=== PATIENT | male | born 1950 | race Caucasian/White ===

== ENCOUNTER 2023-05-18 18:12 | Emergency (ER) | payer MEDICARE, BC, SELFPAY ==
--- NOTE | 2023-05-18 18:15 | ECG_ITS ---
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 Measurements Intervals [place] Rate: 80 P: 52 VT: 187 QRS: -29 QRSD: 104 T: 35 QT: 357 QTc: 412 Interpretive Statements SINUS RHYTHM POSSIBLE ANTERIOR MYOCARDIAL INFARCTION , PROBABLY OLD [30 ms Q WAVE IN V3/V4, OR R < 0.2 mV IN V4] No previous ECG available for comparison Electronically Signed On 05-18-2023 21:36:57 PER DIEM RN by Odalis Garcia M.D. [id number] f
[2023-05-18 18:17] VITALS: BP 152/92; PULSE 78; RESP 16; TEMP 36.6; O2SAT 98; BMI 38.0
--- NOTE | 2023-05-18 18:29 | XRR_ITS ---
PROCEDURE INFORMATION: Exam: XR Chest Exam date and time: 05/18/2023 6:56 PM Age: 73 years old Clinical indication: Shortness of breath; Additional info: SOB TECHNIQUE: Imaging protocol: Radiologic exam of the chest. Views: 1 view. COMPARISON: No relevant prior studies available. FINDINGS: Lungs: Unremarkable. No consolidation. Pleural spaces: Unremarkable. No pleural effusion. No pneumothorax. Heart/Mediastinum: Unremarkable. No cardiomegaly. Bones/joints: Unremarkable. XR/XR chest 1V portable [id number] IMPRESSION: No acute findings.
[2023-05-18 18:43] LABS: Basophils # 0.1 10^3/uL (0.0-0.1); Basophils % 1.1 %; Eosinophils # 0.2 10^3/uL (0.0-0.8); Eosinophils % 2.8 %; Hematocrit 42.2 % (37-53); Lymphocytes # 1.5 10^3/uL (0.8-4.8); Lymphocytes % 24.3 %; Mean Corpuscular HGB Conc 33.4 g/dL (30-55); Mean Corpuscular Hemoglobin 29.3 pg (27-33); Mean Corpuscular Volume 87.7 fl (82-101); Mean Platelet Volume 9.6 fL (7.4-10.4); Monocytes # 0.4 10^3/uL (0.2-0.9); Monocytes % 6.3 %; Neutrophils # 3.98 10^3/uL (1.8-7.7); Neutrophils % 64.4 %; Nucleated Red Blood Cells % 0 %; Platelet Count 205 10^3/cmm (157-399); Red Blood Count 4.81 10^6/uL (3.85-5.65); Red Cell Distribution Width 13.1 % (12.1-15.1); White Blood Count 6.18 10^3/uL (3.29-11.43)
--- NOTE | 2023-05-18 19:01 | ED_ITS ---
HPI - Chest Pain 2 General: Chief Complaint: Chest Pain Stated Complaint: cp Time Seen by Provider: 05/18/23 18:28 History of Present Illness: 73-year-old male patient here with chest discomfort and hypertension. He states that he was placed on Celebrex this week, and has had a few doses. He watched his blood pressure continually rise over the weekend after taking his Celebrex. His last dose was last night. His blood pressure remained high today, and he began to get chest and left arm discomfort. He is not overly short of breath. He has some left jaw pain. Associated symptoms: Deny abdominal pain, dyspnea, fever(s), nausea, palpitations or vomiting Review of Systems 2 Const: Denies: fever(s), chills or body aches Eyes: Denies: change in vision Card: Reports: chest pain; Denies: palpitations Resp: Denies: dyspnea, productive cough, non-productive cough or wheezing GI: Denies: abdominal pain, nausea, vomiting, diarrhea or hematochezia Skin/Breast: Denies: rash Neuro: Denies: headache(s), weakness in extremities, dizziness or confusion PFSH ED 2 PFSH: Surgical History History of tonsillectomy History of rhinoplasty deviated septum History of lumbar surgery x 2; L4/5 & L5/S1 History of cholecystectomy Family History Mother Lung cancer smoker Father CAD (coronary artery disease) Social History Smoking and tobacco/nicotine status: never used tobacco/nicotine Alcohol intake: never Substance/Drug Use: never Lives independently: Yes Household members: spouse Marital status: Marital status details: in 2003 Highest education level completed: Other Doctoral Degree 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Islam: Hoahaoism Agree to transfusion: No Physical Exam 2 Const: COMMON NORMALS: no acute distress GENERAL APPEARANCE: cooperative; not ill appearing and not frail appearing HENMT: COMMON NORMALS: normocephalic, atraumatic and Normal external nose present HEAD & SCALP: normocephalic and atraumatic FACE & SINUS: normal facial exam and face symmetric NOSE: Normal external nose present Eye: COMMON NORMALS: Equal, round and reactive pupils present and EOMs intact bilaterally PUPIL: Yes Equal, round and reactive pupils present Neck/C-Spine: GENERAL: Yes trachea midline Chest: CHEST: Yes Symmetrical chest wall rise Resp: COMMON NORMALS: normal respiratory effort, No retractions, No use of accessory muscles and clear to auscultation bilaterally AUSCULTATION: clear to auscultation bilaterally Cardio: COMMON NORMALS: regular rate and regular rhythm RATE: regular rate RHYTHM: regular rhythm GI: COMMON NORMALS: Normal to inspection, nondistended, normoactive bowel sounds present Extremity: COMMON NORMALS: no pedal edema Neuro: BENY COMA SCALE: document GCS findings [place] coma scale eye opening: Spontaneous [place] coma scale verbal response: Orientated Beny coma scale motor response: Obey commands [place] coma scale total score: 15 S ENSORY EXAM: Yes extremities (intact) Psych: COMMON NORMALS: speech normal SPEECH: Yes normal speech Skin: COMMON NORMALS: no rashes or lesions noted GENERAL SKIN EXAM: no rashes or lesions noted Course 2 Vital Signs: Vital signs: Vital Signs Temperature 97.8 F 05/18/23 21:29 Pulse Rate 76 05/18/23 21:29 Respiratory Rate 16 05/18/23 21:29 Blood Pressure 152/91 05/18/23 21:29 Pulse Oximetry 91 05/18/23 21:29 Oxygen Delivery Me thod Room Air 05/18/23 18:17 MDM - Chest Pain Medical Decision Making Hypertensive 73-year-old male. Blood pressure 198 systolic here. CBC is normal. Chest x-ray is not remarkable. Other laboratories pending. EKG shows no acute ST wave changes Blood pressures improved after medications. 150/90. Chest pain resolved. Second EKG reveals no acute ST wave changes. Troponin is stable. He will be discharged. Amlodipine for hypertension. He will check his blood pressure twice daily. Close outpatient follow-up. Return for concerns. Lab Data 05/18/23 18:38 05/18/23 18:38 Radiology Impressions Chest X-Ray 05/18/23 18:29 IMPRESSION: No acute findings. Laboratory Results WBC 6.18 10^3/uL (3.29-11.43) 05/18/23 18:38 RBC 4.81 10^6/uL (3.85-5.65) 05/18/23 18:38 Hgb 14.10 g/dL (11.27-16.99) 05/18/23 18:38 Hct 42.2 % (37-53) 05/18/23 18:38 MCV 87.7 fl (82-101) 05/18/23 18:38 MCH 29.3 pg (27-33) 05/18/23 18:38 MCHC 33.4 g/dL (30-55) 05/18/23 18:38 RDW 13.1 % (12.1-15.1) 05/18/23 18:38 Plt Count 205 10^3/cmm (157-399) 05/18/23 18:38 MPV 9.6 fL (7.4-10.4) 05/18/23 18:38 Neut % (Auto) 64.4 % 05/18/23 18:38 Lymph % (Auto) 24.3 % 05/18/23 18:38 Boundary % (Auto) 6.3 % 05/18/23 18:38 Eos % (Auto) 2.8 % 05/18/23 18:38 Baso % (Auto) 1.1 % 05/18/23 18:38 Neut # (Auto) 3.98 10^3/uL (1.8-7.7) 05/18/23 18:38 Lymph # (Auto) 1.5 10^3/uL (0.8-4.8) 05/18/23 18:38 Boundary # (Auto) 0.4 10^3/uL (0.2-0.9) 05/18/23 18:38 Eos # (Auto) 0.2 10^3/uL (0.0-0.8) 05/18/23 18:38 Baso # (Auto) 0.1 10^3/uL (0.0-0.1) 05/18/23 18:38 Nucleated RBC % (auto) 0 % 05/18/23 18:38 Nucleated RBCs # 0.0 /100WBC 05/18/23 18:38 Sodium 139 mmol/L (136-145) 05/18/23 18:38 Potassium 4.1 mmol/L (3.5-5.1) 05/18/23 18:38 Chloride 104 mmol/L (98-107) 05/18/23 18:38 Carbon Dioxide 24 mmol/L (22-29) 05/18/23 18:38 Anion Gap 15.1 (5-19) 05/18/23 18:38 BUN 17 mg/dL (8-23) 05/18/23 18:38 Creatinine 0.8 mg/dL (0.7-1.2) 05/18/23 18:38 GFR Calculation Not Reportable 05/18/23 18:38 Glucose 96 mg/dL (65-115) 05/18/23 18:38 Calculated Osmolality 289 mOsm/kg (285-295) 05/18/23 18:38 Calcium 9.3 mg/dL (8.5-10.5) 05/18/23 18:38 Total Bilirubin 0.4 mg/dL (0.15-1.2) 05/18/23 18:38 AST 22 U/L (0-40) 05/18/23 18:38 ALT 35 U/L (0-41) 05/18/23 18:38 Alkaline Phosphatase 67 U/L (40-130) 05/18/23 18:38 Creatine Kinase 163 U/L (39-308) 05/18/23 18:38 Troponin T Baseline 17 ng/L (0-15) H 05/18/23 18:38 Troponin T 120 Minute 16.09 ng/L (0-15) H 05/18/23 20:25 Delta Troponin T -0.91 ABS# (0-10) L 05/18/23 20:25 NT-Pro-B Natriuret Pep 99 pg/mL (0-125) 05/18/23 18:38 Total Protein 6.9 g/dL (6.6-8.7) 05/18/23 18:38 Albumin 4.6 g/dL (3.5-5.2) 05/18/23 18:38 Globulin 2.3 g/dL (1.3-4.6) 05/18/23 18:38 All radiology interpretation(s) finalized by discharge Discharge Plan Discharge Patient Disposition: Home Clinical Impression: Chest pain, Hypertension Condition: Stable Prescriptions: New amlodipine 10 mg tablet 10 mg PO DAILY Qty: 30 0RF No Action tamsulosin 0.4 mg capsule 0.4 mg PO DAILY celecoxib [Celebrex] 100 mg capsule 100 mg PO BID Qty: 60 0RF Discharge Orders: Discharge ED (Routine); Ordered 05/18/23 Ordered By: Abhinav Soliman Referrals: Vanna Woodard MD [Primary Care Provider] - 1-3 days Patient Instructions: Chest Pain (ED), Hypertension (ED), Opioid Safety, Pain Management Activity Restrictions/Additional Instructions: Check your blood pressure twice daily and record numbers for your doctor. If your blood pressure remains greater than 150/90, take the medication prescribed. If not, you do not need to take the medication. Follow your doctor's advice about your blood pressure on follow-up. Return for worsening pain despite treatment, shortness of breath, fever, any other concerning symptoms. Coding Level of Care Code ED Commercial Food Instructor for Carole Trujillo
[2023-05-18 19:07] LABS: Troponin(5th) Baseline 17 ng/L (0-15)
[2023-05-18] MEDS: nitroglycerin 0.4 mg sublingual Tablet SUBLINGUAL (19:11)
[2023-05-18] MEDS: amlodipine 10 mg Tablet PO (19:11)
[2023-05-18 19:12] LABS: Alanine Aminotransferase 35 U/L (0-41); Albumin Level 4.6 g/dL (3.5-5.2); Alkaline Phosphatase 67 U/L (40-130); Anion Gap 15.1 (5-19); Aspartate Amino Transferase 22 U/L (0-40); Blood Urea Nitrogen 17 mg/dL (8-23); Calcium 9.3 mg/dL (8.5-10.5); Carbon Dioxide 24 mmol/L (22-29); Chloride 104 mmol/L (98-107); Creatine Phosphokinase 163 U/L (39-308); Globulin 2.3 g/dL (1.3-4.6); Glucose 96 mg/dL (65-115); NT Pro B Type Natriuretic Pept 99 pg/mL (0-125); Osmolality Calculated 289 mOsm/kg (285-295); Potassium 4.1 mmol/L (3.5-5.1); Sodium 139 mmol/L (136-145); Total Bilirubin 0.4 mg/dL (0.15-1.2); Total Protein 6.9 g/dL (6.6-8.7)
--- NOTE | 2023-05-18 20:29 | ECG_ITS ---
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 Measurements Intervals [place] Rate: 68 P: 41 MS: 190 QRS: -23 QRSD: 94 T: 42 QT: 367 QTc: 391 Interpretive Statements SINUS RHYTHM POSSIBLE ANTERIOR MYOCARDIAL INFARCTION , PROBABLY OLD [30 ms Q WAVE IN V3/V4, OR R < 0.2 mV IN V4] Compared to ECG 05/18/2023 18:15:13 No significant changes Electronically Signed On 05-18-2023 21:41:21 REJECT OPENER AND FILLER by Odalis Garcia M.D. [id number]
[2023-05-18 20:50] LABS: Troponin 5 2HR 16.09 ng/L (0-15); Troponin 5 2HR Delta -0.91 ABS# (0-10)
[2023-05-18 21:28] VITALS: BP 152/91; PULSE 76; RESP 16; O2SAT 91
[2023-05-18 21:29] VITALS: BP 152/91; PULSE 76; RESP 16; TEMP 36.6; O2SAT 91
== END 2023-05-18 21:31 | disposition home or self-care (01) ==
PROVIDERS: Emergency Provider Emergency Medicine; PCP Family Medicine
DX: R07.9 Chest pain, unspecified (principal); I10 Essential (primary) hypertension
CPT/HCPCS: 71045; 80053; 82550; 83880; 84484; 85025; 93005; 99285

== ENCOUNTER → 2023-05-22 14:33 | Outpatient (BNVA) | payer MEDICARE, BC, SELFPAY | PROVIDERS: PCP Family Medicine; Referring Provider Family Medicine; Visit Provider Specialist | DX: R29.90 Unspecified symptoms and signs involving the nervous system (principal); I67.89 Other cerebrovascular disease; R42 Dizziness and giddiness; H91.92 Unspecified hearing loss, left ear; R26.9 Unspecified abnormalities of gait and mobility; G56.03 Carpal tunnel syndrome, bilateral upper limbs | CPT/HCPCS: 99205 ==

== ENCOUNTER 2023-05-24 20:54 | Emergency (ER) | payer MEDICARE, BC, SELFPAY ==
[2023-05-24 20:57] VITALS: BP 187/118; PULSE 91; RESP 18; TEMP 36.6; O2SAT 97; BMI 37.3
--- NOTE | 2023-05-24 21:43 | USR_ITS ---
PROCEDURE INFORMATION: Exam: US Duplex Left Lower Extremity Veins, Limited Exam date and time: 05/24/2023 11:54 PM Age: 73 years old Clinical indication: Pain; Leg, lower; Left; Additional info: Pain swelling left leg TECHNIQUE: Imaging protocol: Real-time duplex ultrasound of the left extremity with 2-D mcghee scale, color Doppler flow and spectral waveform analysis including responses to compression and other maneuvers (when performed) with image documentation. Limited exam focused on the left lower extremity veins. COMPARISON: No relevant prior studies available. FINDINGS: Evaluated veins include the left common femoral, proximal profunda femoral, proximal/mid/distal superficial femoral, popliteal, posterior tibial, peroneal, and proximal greater saphenous veins. No visible clot in the included veins. The included veins appear normally compressible. Duplex Doppler evaluation demonstrates flow in the evaluated veins. US/CV venous duplex [facility] [id number] IMPRESSION: No evidence of acute left lower extremity DVT.
--- NOTE | 2023-05-24 21:43 | CTR_ITS ---
PROCEDURE INFORMATION: Exam: CT Head Without Contrast Exam date and time: 05/24/2023 10:34 PM Age: 73 years old Clinical indication: Pain; Headache; Patient HX: DREW with dizziness, nausea, and hypertension. ; Additional info: Left head side tingling TECHNIQUE: Imaging protocol: Computed tomography of the head without contrast. Radiation optimization: All CT scans at this facility use at least one of these dose optimization techniques: automated exposure control; mA and/or kV adjustment per patient size (includes targeted exams where dose is matched to clinical indication); or iterative reconstruction. COMPARISON: No relevant prior studies available. RADIATION DOSE METRICS: Total DLP (mGy-cm): 1268.89 FINDINGS: Brain: No hemorrhage. No edema. Moderate diffuse cerebral atrophy and mild sequela of chronic small vessel ischemic disease. No mass effect. Cerebral ventricles: No ventriculomegaly. Paranasal sinuses: Visualized sinuses are unremarkable. No fluid levels. Mastoid air cells: Visualized mastoid air cells are well aerated. Bones/joints: Unremarkable. No acute fracture. Soft tissues: Unremarkable. CT/CT head wo con* [id number] IMPRESSION: No acute intracranial abnormality.
--- NOTE | 2023-05-24 21:43 | ECG_ITS ---
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 Measurements Intervals [place] Rate: 94 P: 39 [place]: 177 QRS: -39 QRSD: 98 T: 52 QT: 335 QTc: 419 Interpretive Statements SINUS RHYTHM LEFT AXIS DEVIATION [QRS AXIS < -30] POSSIBLE ANTERIOR MYOCARDIAL INFARCTION , PROBABLY OLD [30 ms Q WAVE IN V3/V4, OR R < 0.2 mV IN V4] Compared to ECG 05/18/2023 20:25:36 Left-axis deviation now present Myocardial infarct finding still present Electronically Signed On 05-24-2023 23:09:29 RHEUMATOLOGY SPECIALIST by Vik Mcgowan M.D. [id number]
--- NOTE | 2023-05-24 21:45 | ED_ITS ---
Documented by User: Marcus Sood MD 05/25/23 20:19 HPI - General Adult 2 General: Chief complaint: General Medical Stated complaint: High BP\Leg Tingling\Chest Pain Time Seen by Provider: 05/24/23 21:31 History of Present Illness: 73-year-old male presents to the emergen cy department with complaints of chest pressure and elevated blood pressure. He states he was seen here last Friday for elevated blood pressure and advised to take Norvasc for his blood pressure and follow-up with his primary care provider. Patient states that since that time he is taking his Norvasc intermittently when his systolic blood pressure was elevated. He states today he comes in with a 6 out of 10 left-sided headache and tingling to the entire left side of his body. He also states that he has dizziness as well as swelling and pain to his left lower leg. He states he also recently had left-sided hearing loss and was seen by Dr. Polanco- neurology yesterday. Associated symptoms: Reports chest pain Review of Systems 2 General: Reports: 10 or more systems reviewed and unremarkable except in HPI and below ENMT: Reports: other (Hearing loss left ear) Card: Reports: chest pain and edema Musc: Reports: extremity pain and extremity swelling Neuro: Reports: other (Tingling to entire left side of his body) PFSH ED 2 PFSH: Surgical History History of tonsillectomy History of rhinoplasty deviated septum History of lumbar surgery x 2; L4/5 & L5/S1 History of cholecystectomy Family History Mother Lung cancer smoker Father CAD (coronary artery disease) Social History Smoking and tobacco/nicotine status: never used tobacco/nicotine Alcohol intake: never Substance/Drug Use: never Lives independently: Yes Household members: spouse Marital status: Marital status details: in 2003 Highest education level completed: Other Doctoral Degree 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 Vital signs reviewed as documented. HENMT: Normocephalic, atraumatic. External ears normal appearance without drainage. Nose without drainage, normal appearance. Mucus membranes moist. Neck is supple, No jugular venous distension, trachea is midline, no appreciable carotid bruits. No lymphadenopathy. No meningeal signs. Flexion, extension and lateral rotation is without pain. Eyes: Pupils are equal, round, reactive to light and accommodation. No scleral icterus. Extra-ocular movement are intact. Thorax is symmetrical and with equal rise and fall with respirations. Resp: Lungs are clear to auscultation. No wheezes, rales, crackles or ronchi at present. Cardio: Regular rate and rhythm. Positive S1, S2. No appreciable murmurs, rubs or gallops. GI: Abdominal exam reveals normal bowel sounds to all quadrants. No organomegaly. No obvious palpable masses noted. No hepatomegally appreciated. Soft, non-tender to palpation. Extremity: Left lower extremity/calf with tight brawny edema that is nonpitting. The calf is tender to light palpation. And both femoral and pedal pulses are 2+ and equal bilaterally. Moves all extremities well, sensation in all extremities. Neuro: Alert and oriented x4, person, place, time and situation. Cranial nerves II through XII are grossly intact, there is no focal neurological deficits that I can appreciate at present. Motor strength in the upper and lower extremities are equal and bilateral 5/5. Psych: Cooperative, calm, normal thought process, appropriate judgment. Skin: No lesions, rashes. No gross abnormalities noted. Back: Symmetrical, no obvious deformity, No CVA tenderness Course 2 Vital Signs: Vital signs: Vital Signs Temperature 97.8 F 05/24/23 20:57 Pulse Rate 87 05/25/23 00:50 Respiratory Rate 16 05/24/23 22:00 Blood Pressure 126/83 05/25/23 00:50 Pulse Oximetry 96 05/25/23 00:50 Oxygen Delivery Me thod Room Air 05/24/23 20:57 MDM - General Adult Differential Diagnosis 73-year-old male with elevated blood pressure, leg pain and swelling and chest pressure. I will obtain a CBC, CMP serial cardiac enzymes and EKGs, CT scan of his head as well as ultrasound the left lower extremity. I will provide him IV hydralazine to lower his blood pressure. Medical Records I reviewed the patient's medical records. Lab Data I reviewed the patient's lab results. 05/24/23 21:49 05/24/23 21:[address] 05/24/23 21:43 IMPRESSION: No acute intracranial abnormality. Venous Duplex 05/24/23 21:43 IMPRESSION: No evidence of acute left lower extremity DVT. Laboratory Results WBC 9.03 10^3/uL (3.29-11.43) 05/24/23 21:49 RBC 5.30 10^6/uL (3.85-5.65) 05/24/23 21:49 Hgb 15.50 g/dL (11.27-16.99) 05/24/23 21:49 Hct 46.2 % (37-53) 05/24/23 21:49 MCV 87.2 fl (82-101) 05/24/23 21:49 MCH 29.2 pg (27-33) 05/24/23 21:49 MCHC 33.5 g/dL (30-55) 05/24/23 21:49 RDW 13.2 % (12.1-15.1) 05/24/23 21:49 Plt Count 247 10^3/cmm (157-399) 05/24/23 21:49 MPV 9.3 fL (7.4-10.4) 05/24/23 21:49 Neut % (Auto) 68.6 % 05/24/23 21:49 Lymph % (Auto) 21.0 % 05/24/23 21:49 Irion % (Auto) 6.3 % 05/24/23 21:49 Eos % (Auto) 2.4 % 05/24/23 21:49 Baso % (Auto) 0.8 % 05/24/23 21:49 Neut # (Auto) 6.19 10^3/uL (1.8-7.7) 05/24/23 21:49 Lymph # (Auto) 1.9 10^3/uL (0.8-4.8) 05/24/23 21:49 Irion # (Auto) 0.6 10^3/uL (0.2-0.9) 05/24/23 21:49 Eos # (Auto) 0.2 10^3/uL (0.0-0.8) 05/24/23 21:49 Baso # (Auto) 0.1 10^3/uL (0.0-0.1) 05/24/23 21:49 Nucleated RBC % (auto) 0 % 05/24/23 21:49 Nucleated RBCs # 0.0 /100WBC 05/24/23 21:49 PT 12.70 SECONDS (12.1-14.9) 05/24/23 21:49 INR 0.92 (0.8-1.2) 05/24/23 21:49 APTT 29.3 SECONDS (23.9-36.7) 05/24/23 21:49 D-Dimer 0.82 ug/mLFEU (0-0.59) H 05/24/23 21:49 Sodium 139 mmol/L (136-145) 05/24/23 21:49 Potassium 4.0 mmol/L (3.5-5.1) 05/24/23 21:49 Chloride 102 mmol/L (98-107) 05/24/23 21:49 Carbon Dioxide 23 mmol/L (22-29) 05/24/23 21:49 Anion Gap 18.0 (5-19) 05/24/23 21:49 BUN 22 mg/dL (8-23) 05/24/23 21:49 Creatinine 0.8 mg/dL (0.7-1.2) 05/24/23 21:49 GFR Calculation Not Reportable 05/24/23 21:49 Glucose 102 mg/dL (65-115) 05/24/23 21:49 Calculated Osmolality 292 mOsm/kg (285-295) 05/24/23 21:49 Calcium 10.0 mg/dL (8.5-10.5) 05/24/23 21:49 Total Bilirubin 0.3 mg/dL (0.15-1.2) 05/24/23 21:49 AST 25 U/L (0-40) 05/24/23 21:49 ALT 34 U/L (0-41) 05/24/23 21:49 Alkaline Phosphatase 78 U/L (40-130) 05/24/23 21:49 Troponin T Baseline 17 ng/L (0-15) H 05/24/23 21:49 Troponin T 120 Minute 16.37 ng/L (0-15) H 05/24/23 23:44 Delta Troponin T -0.63 ABS# (0-10) L 05/24/23 23:44 NT-Pro-B Natriuret Pep < 36 pg/mL (0-125) 05/24/23 21:49 Total Protein 8.0 g/dL (6.6-8.7) 05/24/23 21:49 Albumin 4.8 g/dL (3.5-5.2) 05/24/23 21:49 Globulin 3.2 g/dL (1.3-4.6) 05/24/23 21:49 Discharge Plan Discharge Patient Disposition: Home Clinical Impression: Hypertension, Chest pain Condition: Stable Prescriptions: No Action tamsulosin 0.4 mg capsule 0.4 mg PO DAILY amlodipine 10 mg tablet 10 mg PO DAILY Qty: 30 0RF Discharge Orders: Discharge ED (Routine); Ordered 05/25/23 Ordered By: Abhinav Soliman Referrals: Vanna Woodard MD [Primary Care Provider] - 1-3 days Patient Instructions: Chest Pain (ED), Hypertension (ED), Opioid Safety, Pain Management Activity Restrictions/Additional Instructions: Your testing tonight did not reveal a cause of chest pain, or leg swelling etc. Take your blood pressure medication as directed. See your doctor tomorrow as scheduled. Continue to check your blood pressure and log your results. Return for concerning symptoms. Coding Level of Care Code ED Electronic Repair Troubleshooter for Chg Fwd Documented by User: Abhinav Soliman DO 05/25/23 01:38 HPI - General Adult 2 General: Chief complaint: General Medical Stated complaint: High BP\Leg Tingling\Chest Pain Time Seen by Provider: 05/24/23 21:31 PFSH ED 2 PFSH: Surgical History History of tonsillectomy History of rhinoplasty deviated septum History of lumbar surgery x 2; L4/5 & L5/S1 History of cholecystectomy Family History Mother Lung cancer smoker Father CAD (coronary artery disease) Social History Smoking and tobacco/nicotine status: never used tobacco/nicotine Alcohol intake: never Substance/Drug Use: never Lives independently: Yes Household members: spouse Marital status: Marital status details: in 2003 Highest education level completed: Other Doctoral Degree 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 His blood pressure has been very well-controlled here. 107/81 currently. He is now asymptomatic. Second troponin is pending. Head CT is negative. Other laboratories benign. 2-hour troponin is stable. With improvement in his symptoms, stable troponin, no acute ST wave changes, negative head CT, negative venous duplex, and control his blood pressure, he will be allowed home. He has a follow-up appointment tomorrow with his primary care physician. Differential Diagnosis 73-year-old male with elevated blood pressure, leg pain and swelling and chest pressure. I will obtain a CBC, CMP serial cardiac enzymes and EKGs, CT scan of his head as well as ultrasound the left lower extremity. I will provide him IV hydralazine to lower his blood pressure. Lab Data 05/24/23 21:49 05/24/23 21:[address] 05/24/23 21:43 IMPRESSION: No acute intracranial abnormality. Venous Duplex 05/24/23 21:43 IMPRESSION: No evidence of acute left lower extremity DVT. Laboratory Results WBC 9.03 10^3/uL (3.29-11.43) 05/24/23 21:49 RBC 5.30 10^6/uL (3.85-5.65) 05/24/23 21:49 Hgb 15.50 g/dL (11.27-16.99) 05/24/23 21:49 Hct 46.2 % (37-53) 05/24/23 21:49 MCV 87.2 fl (82-101) 05/24/23 21:49 MCH 29.2 pg (27-33) 05/24/23 21:49 MCHC 33.5 g/dL (30-55) 05/24/23 21:49 RDW 13.2 % (12.1-15.1) 05/24/23 21:49 Plt Count 247 10^3/cmm (157-399) 05/24/23 21:49 MPV 9.3 fL (7.4-10.4) 05/24/23 21:49 Neut % (Auto) 68.6 % 05/24/23 21:49 Lymph % (Auto) 21.0 % 05/24/23 21:49 Irion % (Auto) 6.3 % 05/24/23 21:49 Eos % (Auto) 2.4 % 05/24/23 21:49 Baso % (Auto) 0.8 % 05/24/23 21:49 Neut # (Auto) 6.19 10^3/uL (1.8-7.7) 05/24/23 21:49 Lymph # (Auto) 1.9 10^3/uL (0.8-4.8) 05/24/23 21:49 Irion # (Auto) 0.6 10^3/uL (0.2-0.9) 05/24/23 21:49 Eos # (Auto) 0.2 10^3/uL (0.0-0.8) 05/24/23 21:49 Baso # (Auto) 0.1 10^3/uL (0.0-0.1) 05/24/23 21:49 Nucleated RBC % (auto) 0 % 05/24/23 21:49 Nucleated RBCs # 0.0 /100WBC 05/24/23 21:49 PT 12.70 SECONDS (12.1-14.9) 05/24/23 21:49 INR 0.92 (0.8-1.2) 05/24/23 21:49 APTT 29.3 SECONDS (23.9-36.7) 05/24/23 21:49 D-Dimer 0.82 ug/mLFEU (0-0.59) H 05/24/23 21:49 Sodium 139 mmol/L (136-145) 05/24/23 21:49 Potassium 4.0 mmol/L (3.5-5.1) 05/24/23 21:49 Chloride 102 mmol/L (98-107) 05/24/23 21:49 Carbon Dioxide 23 mmol/L (22-29) 05/24/23 21:49 Anion Gap 18.0 (5-19) 05/24/23 21:49 BUN 22 mg/dL (8-23) 05/24/23 21:49 Creatinine 0.8 mg/dL (0.7-1.2) 05/24/23 21:49 GFR Calculation Not Reportable 05/24/23 21:49 Glucose 102 mg/dL (65-115) 05/24/23 21:49 Calculated Osmolality 292 mOsm/kg (285-295) 05/24/23 21:49 Calcium 10.0 mg/dL (8.5-10.5) 05/24/23 21:49 Total Bilirubin 0.3 mg/dL (0.15-1.2) 05/24/23 21:49 AST 25 U/L (0-40) 05/24/23 21:49 ALT 34 U/L (0-41) 05/24/23 21:49 Alkaline Phosphatase 78 U/L (40-130) 05/24/23 21:49 Troponin T Baseline 17 ng/L (0-15) H 05/24/23 21:49 Troponin T 120 Minute 16.37 ng/L (0-15) H 05/24/23 23:44 Delta Troponin T -0.63 ABS# (0-10) L 05/24/23 23:44 NT-Pro-B Natriuret Pep < 36 pg/mL (0-125) 05/24/23 21:49 Total Protein 8.0 g/dL (6.6-8.7) 05/24/23 21:49 Albumin 4.8 g/dL (3.5-5.2) 05/24/23 21:49 Globulin 3.2 g/dL (1.3-4.6) 05/24/23 21:49 All radiology interpretation(s) finalized by discharge Discharge Plan Discharge Patient Disposition: Home Clinical Impression: Hypertension, Chest pain Condition: Stable Prescriptions: No Action tamsulosin 0.4 mg capsule 0.4 mg PO DAILY amlodipine 10 mg tablet 10 mg PO DAILY Qty: 30 0RF Discharge Orders: Discharge ED (Routine); Ordered 05/25/23 Ordered By: Abhinav Soliman Referrals: Vanna Woodard MD [Primary Care Provider] - 1-3 days Patient Instructions: Chest Pain (ED), Hypertension (ED), Opioid Safety, Pain Management Activity Restrictions/Additional Instructions: Your testing tonight did not reveal a cause of chest pain, or leg swelling etc. Take your blood pressure medication as directed. See your doctor tomorrow as scheduled. Continue to check your blood pressure and log your results. Return for concerning symptoms. Coding Level of Care Code ED Electronic Repair Troubleshooter for Carole Trujillo
[2023-05-24 22:00] VITALS: PULSE 91; RESP 16; O2SAT 96
[2023-05-24 22:01] LABS: Basophils # 0.1 10^3/uL (0.0-0.1); Basophils % 0.8 %; Eosinophils # 0.2 10^3/uL (0.0-0.8); Eosinophils % 2.4 %; Hematocrit 46.2 % (37-53); Lymphocytes # 1.9 10^3/uL (0.8-4.8); Mean Corpuscular HGB Conc 33.5 g/dL (30-55); Mean Corpuscular Hemoglobin 29.2 pg (27-33); Mean Corpuscular Volume 87.2 fl (82-101); Mean Platelet Volume 9.3 fL (7.4-10.4); Monocytes # 0.6 10^3/uL (0.2-0.9); Monocytes % 6.3 %; Neutrophils # 6.19 10^3/uL (1.8-7.7); Neutrophils % 68.6 %; Nucleated Red Blood Cells % 0 %; Platelet Count 247 10^3/cmm (157-399); Red Cell Distribution Width 13.2 % (12.1-15.1); White Blood Count 9.03 10^3/uL (3.29-11.43)
[2023-05-24 22:08] VITALS: BP 217/141; PULSE 91; O2SAT 97
[2023-05-24 22:11] LABS: INR 0.92 (0.8-1.2)
[2023-05-24 22:12] LABS: Partial Thromboplastin Time 29.3 SECONDS (23.9-36.7)
[2023-05-24] MEDS: hyDRALAzine 20 mg/mL INJ 1 mL IVP (22:12)
[2023-05-24 22:14] LABS: D Dimer 0.82 ug/mLFEU (0-0.59)
[2023-05-24] MEDS: LORazepam 2 mg/mL INJ 10 mL MDV 1 MG IVP (22:27)
[2023-05-24] MEDS: nitroglycerin 0.4 mg sublingual Tablet SUBLINGUAL (22:27)
[2023-05-24 22:28] LABS: Alanine Aminotransferase 34 U/L (0-41); Albumin Level 4.8 g/dL (3.5-5.2); Alkaline Phosphatase 78 U/L (40-130); Aspartate Amino Transferase 25 U/L (0-40); Blood Urea Nitrogen 22 mg/dL (8-23); Carbon Dioxide 23 mmol/L (22-29); Chloride 102 mmol/L (98-107); Globulin 3.2 g/dL (1.3-4.6); Glucose 102 mg/dL (65-115); NT Pro B Type Natriuretic Pept < 36 pg/mL (0-125); Osmolality Calculated 292 mOsm/kg (285-295); Sodium 139 mmol/L (136-145); Total Bilirubin 0.3 mg/dL (0.15-1.2)
[2023-05-24 22:37] VITALS: BP 129/70
[2023-05-24 22:39] LABS: Troponin(5th) Baseline 17 ng/L (0-15)
--- NOTE | 2023-05-24 23:43 | ECG_ITS ---
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 Measurements Intervals [place] Rate: 79 P: 51 [place]: 186 QRS: -38 QRSD: 113 T: 64 QT: 362 QTc: 417 Interpretive Statements SINUS RHYTHM LEFT AXIS DEVIATION [QRS AXIS < -30] POSSIBLE ANTERIOR MYOCARDIAL INFARCTION , PROBABLY OLD [30 ms Q WAVE IN V3/V4, OR R < 0.2 mV IN V4] Compared to ECG 05/24/2023 21:01:01 No significant changes Electronically Signed On 05-25-2023 10:59:12 CRUISE GUIDE by Vik Mcgowan M.D. [email or web address]
[2023-05-25 00:07] VITALS: BP 107/81; PULSE 74; O2SAT 96
[2023-05-25 00:16] LABS: Troponin 5 2HR 16.37 ng/L (0-15); Troponin 5 2HR Delta -0.63 ABS# (0-10)
[2023-05-25 00:37] VITALS: BP 102/63; PULSE 78; O2SAT 96
[2023-05-25 00:50] VITALS: BP 126/83; PULSE 87; O2SAT 96
== END 2023-05-25 00:51 | disposition home or self-care (01) ==
PROVIDERS: Internal Medicine; Emergency Provider Emergency Medicine; PCP Family Medicine
DX: I10 Essential (primary) hypertension (principal); R07.9 Chest pain, unspecified
CPT/HCPCS: 36415; 70450; 80053; 83880; 84484; 85025; 85378; 85610; 85730; 93005; 93971; 96374; 96375; 99285; J0360; J2060

== ENCOUNTER → 2023-05-29 08:26 | Outpatient (BNVA) | payer MEDICARE, BC, SELFPAY | PROVIDERS: PCP Family Medicine; Visit Provider Family Medicine | DX: Z12.5 Encounter for screening for malignant neoplasm of prostate (principal); Z87.898 Personal history of other specified conditions; R79.89 Other specified abnormal findings of blood chemistry; R53.83 Other fatigue; Z79.899 Other long term (current) drug therapy | CPT/HCPCS: 80053; 82040; 82306; 82607; 84270; 84403; 84443; 85025; G0103 ==

== ENCOUNTER 2023-06-19 11:02 | Outpatient (CLI) | payer MEDICARE, BC, SELFPAY ==
--- NOTE | 2023-06-19 11:11 | XR_ITS ---
WS: [id number] Exam: XR lumbar spine 2-3V* [id number] Date/Time of Exam: 06/19/2023 11:23 AM Reason For Exam: low back pain with suspected neurogenic claudication No acute fracture or dislocation. There is straightening. Marked spondylosis. Degenerative disc woods es at all levels. Slight levoscoliosis. Moderate facet DJD at all levels. IMPRESSION: 1. No fracture or malalignment. 2. Straightening with loss of the lumbar lordosis. 3. Moderately advanced degenerative changes.
--- NOTE | 2023-06-19 11:45 | MR_ITS ---
WS: [id number] MRI HEAD WITHOUT CONTRAST WITH ATTENTION TO THE INTERNAL AUDITORY CANALS TECHNIQUE: Sagittal T1, T2 axial, T2 axial flair, axial susceptibility weighted imaging, axial diffus ion weighted images, and coronal T2 images were obtained. Noncontrast IAC imaging. Patient refused IV contrast due to reported allergy. CLINICAL INFORMATION: I67.89 - Other cerebrovascular disease COMPARISON: CT head 05/24/2023 FINDINGS: Patient refused IV contrast due to reported contrast allergy. No evidence of restricted diffusion to suggest acute ischemia. Ventricular system and basilar cistern s are patent. Moderate small vessel changes. Small vessel changes in the sherita. Mild to moderate paren chymal volume loss. Normal posterior fossa. Normal vascular flow voids at the skull base. No extra-axial fluid collection s. No evidence of mass or mass effect. Paranasal sinuses are well aerated. Mild mucosal thickening in the ethmoid air cells. Small ovoid lesion in the distal LEFT IAC abutting the basal turn of the cochlea involving the 7th an d 8th cranial nerves measuring approximately 4.3 x 4.1 cm. This is difficult to further characterize without contrast. Findings suspicious for small schwannoma. IMPRESSION: 1. Small 4 mm ovoid lesion in the distal LEFT IAC suspicious for small schwannoma. This is difficult to further characterize without gadolinium. Recommend further evaluation with gadolinium after preme dication if possible. 2. RIGHT IAC is normal. 3. Normal trigeminal nerve root entry zones. 4. No other acute findings.
== END 2023-06-19 11:03 | disposition home or self-care (01) ==
LOC: RAD 11:02
PROVIDERS: PCP Family Medicine; Visit Provider Specialist
DX: M47.816 Spondylosis without myelopathy or radiculopathy, lumbar region; I67.89 Other cerebrovascular disease; R42 Dizziness and giddiness; H91.92 Unspecified hearing loss, left ear; R26.9 Unspecified abnormalities of gait and mobility
CPT/HCPCS: 70551; 72100

== ENCOUNTER → 2023-06-24 13:06 | Outpatient (BNVA) | payer MEDICARE, BC, SELFPAY | PROVIDERS: PCP Family Medicine; Visit Provider Specialist | DX: G93.89 Other specified disorders of brain (principal); R26.9 Unspecified abnormalities of gait and mobility; R42 Dizziness and giddiness; G56.03 Carpal tunnel syndrome, bilateral upper limbs; H91.92 Unspecified hearing loss, left ear; M54.50 Low back pain, unspecified | CPT/HCPCS: 99215 ==

== ENCOUNTER 2023-07-22 11:46 | Outpatient (RCR) | payer MEDICARE, BC, SELFPAY | END 2023-08-19 23:59 | disposition home or self-care (01) | LOC: SPT 11:46 | PROVIDERS: PCP Family Medicine; Visit Provider Specialist | DX: I67.89 Other cerebrovascular disease (principal); R42 Dizziness and giddiness; R26.89 Other abnormalities of gait and mobility | CPT/HCPCS: 95992; 97112; 97161 ==

== ENCOUNTER 2023-09-02 15:26 | Outpatient (CLI) | payer MEDICARE, BC, SELFPAY ==
--- NOTE | 2023-09-02 16:00 | MR_ITS ---
WS: [id number] MRI BRAIN WITH HIGH-RESOLUTION IMAGING THROUGH THE INTERNAL AUDITORY CANALS WITH AND WITHOUT WITHOUT contrast HISTORY: Sudden hearing loss on the LEFT and dizziness. COMPARISON: 06/19/2023 TECHNIQUE: Limited protocol to be read in conjunction with the recent noncontrast exam of 06/19/2023. Multiplanar, multisequence imaging is performed through the brain. Additional 3 mm imaging performed in multiple planes through the internal auditory canal. Postcontrast imaging with 20 ml's of MultiHance. Normal T2 sequence through the unenhanced brain. Normal ventricles. No mass effect. Ventricles and extra-axial spaces are normal. No inferior displacement of cerebellar tonsils. Clivus and pituitary gland are normal. Internal and external auditory canals: Previously described ovoid lesion in the distal LEFT ICA is id entified and demonstrates diffuse moderate enhancement. Enhancing tumor along the internal auditory c anal fundus involves the vestibular cochlear nerve measures 5 mm in width by 3.8 mm superior-inferior . The area of abnormal enhancement extends to the basal turn of the cochlea. The RIGHT IAC is negativ e. No enhancement along the 5th cranial nerve. No additional areas of abnormal enhancement. Cerebello pontine angle is normal. Paranasal sinuses: Mucoperiosteal thickening of the RIGHT maxillary sinus. Mastoid air cells: Normal. Calvarium and scalp: Normal. Visualized wainwright of Sims and dural venous sinuses demonstrate no abnormality. MR/MR iac's wo/w con* [id number] IMPRESSION: 1. Intensely enhancing 5.0 x 3.8 mm mass in the distal LEFT IAC consistent wit h a small schwannoma. Meningioma within the differential also. 2. Normal RIGHT IAC.
[2023-09-02] MEDS: gadobenate dimeglumine 20 mL vial IV (16:56)
== END 2023-09-02 15:27 | disposition home or self-care (01) ==
LOC: RAD 15:26
PROVIDERS: PCP Family Medicine; Visit Provider Specialist
DX: D33.3 Benign neoplasm of cranial nerves (principal); D32.0 Benign neoplasm of cerebral meninges; G93.89 Other specified disorders of brain; J32.0 Chronic maxillary sinusitis
CPT/HCPCS: 70553; A9577

== ENCOUNTER → 2023-09-09 14:42 | Outpatient (BNVA) | payer MEDICARE, BC, SELFPAY | PROVIDERS: PCP Family Medicine; Visit Provider Specialist | DX: G56.03 Carpal tunnel syndrome, bilateral upper limbs (principal); G62.9 Polyneuropathy, unspecified; R20.0 Anesthesia of skin; R20.2 Paresthesia of skin | CPT/HCPCS: 95913 ==

== ENCOUNTER → 2023-09-11 13:59 | Outpatient (BNVA) | payer MEDICARE, BC, SELFPAY | PROVIDERS: PCP Family Medicine; Visit Provider Specialist | DX: I67.89 Other cerebrovascular disease (principal); H91.92 Unspecified hearing loss, left ear; R26.9 Unspecified abnormalities of gait and mobility; G56.03 Carpal tunnel syndrome, bilateral upper limbs; R29.90 Unspecified symptoms and signs involving the nervous system; H02.403 Unspecified ptosis of bilateral eyelids; M54.50 Low back pain, unspecified; D36.11 Benign neoplasm of peripheral nerves and autonomic nervous system of face, head, and neck; G62.89 Other specified polyneuropathies; H81.10 Benign paroxysmal vertigo, unspecified ear | CPT/HCPCS: 99215 ==

== ENCOUNTER 2023-09-22 20:00 | Outpatient (CLI) | payer MEDICARE, BC, SELFPAY | END 2023-09-22 20:01 | disposition home or self-care (01) | LOC: SLEEP 09-23 05:19 | PROVIDERS: PCP Family Medicine; Visit Provider Family Medicine | DX: G47.30 Sleep apnea, unspecified (principal) | CPT/HCPCS: 95811 ==

== ENCOUNTER 2023-10-16 10:57 | Outpatient (CLI) | payer MEDICARE, BC, SELFPAY ==
--- NOTE | 2023-10-16 11:56 | XR_ITS ---
WS: [id number] Exam: XR wrist LT min 3V* [id number] Date/Time of Exam: 10/16/2023 11:58 AM Reason For Exam: carpal tunnel No fracture or dislocation. Mild degenerative change of the radiocarpal joint. Marked degenerative ch kate at the CMC joint of the thumb. Unremarkable soft tissues. XR/XR wrist LT min 3V* [id number] IMPRESSION: 1. No fracture. Degenerative changes as detailed above.
--- NOTE | 2023-10-16 11:56 | XR_ITS ---
WS: [id number] Exam: XR wrist RT min 3V* [id number] Date/Time of Exam: 10/16/2023 11:58 AM Reason For Exam: carpal tunnel No acute fracture or dislocation. Moderately advanced degenerative change at the CMC joint of the timmy mb. Mild degenerative change at the radiocarpal joint. No soft tissue foreign bodies. XR/XR wrist RT min 3V* [id number] IMPRESSION: 1. No fracture. Degenerative changes as above.
[2023-10-16 11:59] LABS: Vitamin B12 681 pg/mL (232-1245)
--- NOTE | 2023-10-16 12:00 | USCV_ITS ---
Randall Zavala Age: 73 Gender: M : 1950 Exam Date: 10/16/2023 11:04 Ordering Phys: Vanna Woodard MD Technologist: Exam Location: [facility] [place]_ Indication: PAIN RIGHT LEFT Brachial 164.00 mmHg Brachial 138.00 mmHg Pressure (mmHg) Waveform Pressure (mmHg) Waveform YEAST FERMENTATION ATTENDANT 175.00 143.00 DPA 177.00 Ankle/Brachial Index 1.08 154.00 Pre-Exercise Toe Pressure 152.00 0.94 Pre-Exercise Toe/Brachial Index 0.93 FINDINGS Right YEAST FERMENTATION ATTENDANT Non compressible Resting WILMA of 1.08 on the left side Resting TBI of 0.94 on the right and 0.93 on the left CONCLUSIONS 1. No significant arterial obstruction bilaterally, based on the above findings Dr Odalis Garcia MD FAC (Electronically Signed) Final Date: 17 October 2023 20:23 S
[2023-10-22 16:14] LABS: Acetylcholine Receptor Binding <0.30 nmol/L
== END 2023-10-16 10:58 | disposition home or self-care (01) ==
PROVIDERS: Absent Provider Specialist; PCP Family Medicine; Referring Provider Physician Assistant; Visit Provider Family Medicine
DX: G56.03 Carpal tunnel syndrome, bilateral upper limbs (principal); T14.8XXD Other injury of unspecified body region, subsequent encounter; H02.409 Unspecified ptosis of unspecified eyelid; M18.11 Unilateral primary osteoarthritis of first carpometacarpal joint, right hand; M18.12 Unilateral primary osteoarthritis of first carpometacarpal joint, left hand
CPT/HCPCS: 36415; 73110; 82607; 83516; 83519; 93922

== ENCOUNTER → 2023-11-04 14:13 | Outpatient (BNVA) | payer MEDICARE, BC, SELFPAY | PROVIDERS: PCP Family Medicine; Visit Provider Physician Assistant | DX: G56.03 Carpal tunnel syndrome, bilateral upper limbs (principal); M65.331 Trigger finger, right middle finger; G56.22 Lesion of ulnar nerve, left upper limb | CPT/HCPCS: 20600; 73130; 99204; J3301; J3490 ==

== ENCOUNTER 2023-11-05 06:00 | Outpatient (RCR) | payer MEDICARE, BC, SELFPAY | END 2023-11-19 23:59 | disposition home or self-care (01) | LOC: SPT 06:00 | PROVIDERS: PCP Family Medicine; Visit Provider Family Medicine | DX: M54.50 Low back pain, unspecified (principal) | CPT/HCPCS: 97110; 97161 ==

== ENCOUNTER 2023-11-20 06:00 | Outpatient (RCR) | payer MEDICARE, BC, SELFPAY | END 2023-12-20 23:59 | disposition home or self-care (01) | LOC: SPT 06:00 | PROVIDERS: PCP Family Medicine; Visit Provider Family Medicine | DX: M54.50 Low back pain, unspecified (principal) | CPT/HCPCS: 97110 ==

== ENCOUNTER → 2023-11-27 11:44 | Day surgery (SDC) | payer MEDICARE, BC, SELFPAY ==
[2023-11-27] VITALS (10 sets, daily range): BP systolic 127–156; BP diastolic 67–86; PULSE 67–87; RESP 14–18; TEMP 36.2–36.5; O2SAT 93–98
--- NOTE | 2023-11-27 12:16 | P.ANESASSM_ITS ---
Pre-Anesthetic Assessment Height/Weight: Height 1.83 m Weight 122.47 kg Temp Pulse Resp BP Pulse Ox O2 Del Method 97.1 F L 87 16 156/84 93 Room Air 11/27/23 12:09 11/27/23 12:09 11/27/23 12:09 11/27/23 12:09 11/27/23 12:09 11/27/23 12:09 Preop Diagnosis: Left Carpal Tunnel syndrome, left cubital tunnel syndrome Operation Date: 11/27/23 12:20 Proposed Procedures p Carpal Tunnel Release(Left) - Akash Tori, DO s Cubital Tunnel Release(Left) - Akash Tori, DO s Ulnar Nerve Transposition(Left) - Akash Tori, DO Familial anesthetic complications: None Was Beta Pepe taken within 24 hours: N/A Was Clonidine taken within 24 hours: N/A Last intake: Intake Last Liquid Date 11/26/23 Last Liquid Time 22:00 Last Solid Date 11/26/23 Last Solid Time 20:00 Social No alcohol and No tobacco Exam alert, oriented x 3, clear to auscultation bilaterally and regular rate & rhythm Airway Mallampati: Class II Dentition: full Pulmonary Sleep Apnea CV/HEM Hypertension Metabolic Morbid Obesity Neuropsych Cerebrovascular Accident [facility] Anesthetic Plan ASA status: 3 Anesthesia: MAC Risk of > 500 ml blood loss (7ml/kg in children): No Medications/Allergies Home Medications Medication Instructions Recorded Confirmed Last Taken Type tamsulosin 0.4 mg capsule 0.4 mg PO BID 06/12/23 11/27/23 11/26/23 History lisinopril 10 mg tablet 10 mg PO DAILY 06/24/23 11/27/23 11/26/23 History CPAP (Auto-Titrating CPAP) #1 ea 06/27/23 11/25/23 Unknown Rx fluticasone propionate 50 See Rx Instructions .Route 08/18/23 11/26/23 Unknown Rx mcg/actuation nasal .COMPLEX #48 grams spray,suspension bipap #1 ea 10/07/23 11/24/23 Unknown Rx cane #1 ea 10/07/23 11/24/23 Unknown Rx hydrocodone 5 mg-acetaminophen 325 1 tab PO Q6H PRN pain 5 days #20 11/27/23 Unknown Rx mg tablet tabs ondansetron 4 mg disintegrating 4 mg PO Q8H PRN nausea and 11/27/23 Unknown Rx tablet vomiting 3 days #9 tabs Allergies Allergy/AdvReac Type Severity Reaction Status Date / Time ciprofloxacin [From Cipro] Allergy Intermediate Vomiting Verified 11/26/23 11:23 celecoxib [From Celebrex] Allergy ADR/ALGY-Hy Verified 11/26/23 11:23 potension Iodinated Contrast Media Allergy Vomiting Verified 11/26/23 11:23 meloxicam [From Mobic] Allergy ADR-Hyperte Verified 11/26/23 11:23 nsion [facility] Anesthesia Medical History BPH (benign prostatic hyperplasia) Surgical History History of tonsillectomy History of rhinoplasty deviated septum History of lumbar surgery x 2; L4/5 & L5/S1 History of cholecystectomy Family History Mother Lung cancer smoker Father CAD (coronary artery disease) Social History Smoking and tobacco/nicotine status: never used tobacco/nicotine Alcohol intake: never Substance/Drug Use: never Lives independently: Yes Household members: spouse Marital status: Marital status details: in 2003 Highest education level completed: Other Doctoral Degree 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
[2023-11-27] MEDS: sodium chloride 0.9% 1,000 ML 30 ML IV (12:24)
[2023-11-27] MEDS: acetaminophen 1,000 MG/100 ML PIGGYBACK 400 MG IV (12:26)
[2023-11-27] MEDS: ketorolac 30 mg/mL INJ IVP (12:28)
--- NOTE | 2023-11-27 13:06 | SUR.PREOP ---
A timeout was completed at bedside for an axillary block. Block was performed at bedside by Raina, patient tolerated well.
--- NOTE | 2023-11-27 13:19 | W.PM.OPSUD ---
Surgery/Procedure H&P Update DATE OF PROCEDURE: November 27, 2023 DATE H&P PERFORMED: 11/04/23 H&P UPDATE INFORMATION: I have reviewed H&P completed within last 30 days, I have examined patient prior to procedure and No changes to prior documentation PREOP DIAGNOSIS: Left Carpal Tunnel syndrome, left cubital tunnel syndrome PRIMARY INDICATION FOR PROCEDURE: Left carpal tunnel syndrome, left cubital tunnel syndrome PLANNED PROCEDURE: Operation Date: 11/27/23 12:20 Proposed Procedures p Carpal Tunnel Release(Left) - DO janis Vang Cubital Tunnel Release(Left) - DO janis Vang Ulnar Nerve Transposition(Left) - Akash Valle DO
[2023-11-27 13:22] LABS: Anion Gap 18.4 (5-19); Blood Urea Nitrogen 22 mg/dL (8-23); Calcium 9.6 mg/dL (8.5-10.5); Carbon Dioxide 21 mmol/L (22-29); Chloride 103 mmol/L (98-107); Creatinine Clr Calc Pharmacy 112.7997; Glucose 109 mg/dL (65-115); Osmolality Calculated 290 mOsm/kg (285-295); Potassium 4.4 mmol/L (3.5-5.1); Sodium 138 mmol/L (136-145)
[2023-11-27] MEDS: ceFAZolin 3,000 MG in sodium chloride 0.9% (plus) 100 ML 200 MG IV (13:27)
--- NOTE | 2023-11-27 14:18 | W.PM.BPON ---
Date of Procedure: [11/27/2023] Surgeon: Akash Valle DO Newborn Photographer(s): None Procedure(s) performed: Left carpal tunnel release Left cubital tunnel release (ulnar nerve decompression at the elbow) Findings of the procedure(s): Patient was found to have left carpal tunnel syndrome and left cubital tunnel syndrome underwent procedure as planned without issues or complications of note patient did not have any subluxation of the ulnar nerve and stayed within groove in situ release was performed. no transposition was performed. Patient placed in bulky soft dressing taken to PACU in stable condition. Estimated blood loss: 2 mL Specimen(s) removed: None Post-operative diagnosis: Left carpal tunnel syndrome, left cubital tunnel syndrome
--- NOTE | 2023-11-27 14:20 | PM.OP ---
Operative Report Date of procedure: November 27, 2023 Surgeon: Akash Valle DO Procedure: Preoperative diagnosis: Left carpal tunnel syndrome, left cubital tunnel syndrome Postop Diagnosis: Same Procedure done: Left carpal tunnel release Left?cubital tunnel tunnel release (ulnar nerve decompression at elbow) Surgeon: Akash Valle DO Estimated blood loss: 2 mL Tourniquet? 16 minutes IV fluids: 700 mL Complications: None Findings: See operative report narrative Condition: stable Disposition: same day Brief History: Patient's been seen and worked up in the outpatient setting and findings consistent with preoperative diagnosis.? Patient has Left carpal tunnel syndrome as well as Left?cubital tunnel syndrome which has been worked up in the outpatient setting has physical exam findings consistent with this as well as confirmatory nerve conduction/EMG nerve conduction study consistent with diagnosis.? Patient's failed conservative treatment.? As result through shared decision making agreed to proceed with? Left carpal tunnel and Left?cubital tunnel release we talked about treatment options as far as nonoperative and operative intervention.? Understands risk benefits complication alternatives surgical nonsurgical treatment options.? Understanding his risks he agrees to proceed with surgical intervention. Understanding these risks he agrees to proceed with surgery.? Consent obtained in office. Procedure: Patient seen evaluate in the preoperative holding area.? Consent was reviewed and signed with patient.? Correct extremity marked.? Patient seen evaluated by anesthesia department once cleared for surgery was then taken back to the operative suite placed in supine position all bony prominences well-padded patient properly secured to bed.? Left upper extremity placed onto armboard.? Nonsterile tourniquet applied Left upper arm.? Patient then underwent anesthesia per the anesthesia department.? Patient's Left upper extremity was then prepped and draped in standard orthopedic fashion.? Final timeout performed.? Patient received appropriate preoperative antibiotics. Esmarch was used exsanguinate the Left upper extremity.? Tourniquet was insufflated to 250 mmHg. I started with the carpal tunnel release first.? I made a standard open carpal tunnel release starting with the distal most extent in the palm at the Dawson's cardinal line and the incision line was made in line with the fourth ray and ended just distal to the wrist crease.? Sharp scalpel incision was made through skin and subcutaneous tissue I then utilizing self retainer then began to dissect with dissection scissors split longitudinally the palmar fascia.? Next I then utilizing my oncology physician assistant Jase retractors subsequently utilizing scalpel feathered through the palmaris brevis as well as through the transverse carpal ligament distally.? Once I encountered the floor of the transverse carpal ligament and entered into the carpal tunnel I then switched to dissection scissors.? Carefully released the distal extent of the transverse carpal ligament to the palmar fat.? Care was to protect the recurrent branch and not injured this during this part of the case.? Next I then placed a [place] underneath the transverse carpal ligament proximally to protect the nerve in the carpal tunnel contents.? And then I subsequently under loupe magnification utilize my dissection scissors to release the transverse carpal ligament into the antebrachial fascia under direct visualization with care to keep my scissors with a curved ulnarly away from the palmar cutaneous branch.? The transverse carpal was then completely decompressed proximally and a [place] was then placed both distally and proximally throughout the carpal tunnel and had complete decompression of the nerve.? The nerve did appear to have hourglass shape as it went through the carpal tunnel.? With significant irritation noted around the nerve.? No masses were noted within the contents of the carpal tunnel.? This completed the carpal tunnel release and then I subsequently irrigated the wound bed and placed a wet Ray-Torey into the incision for later closure. Next marked out the landmarks of the Left elbow of the medial epicondyle and olecranon and made a curvilinear incision following the course of the ulnar nerve at the medial aspect of the elbow.? Sharp scalpel incision was made through skin and subcutaneous tissue.? Next I switched to Littler dissection scissors and spread in plane of the medial antebrachial cutaneous nerve branching which was protected throughout this part of the dissection.? Then I directly came down over the fascia and identified the 2 heads of the FCU fascia and split this Left in the middle and subsequently identified my ulnar nerve distally.? This was then completely released distally under direct visualization and loupe magnification.? Once the nerve was then identified I then subsequently tracked this proximally and released this through Samayoa's ligament as well as complete decompression of the nerve proximally all the way past the intermuscular septum.? The nerve was completely released and decompressed both proximally and distally.? Ulnar nerve neurolysis performed and completed both proximally and distally with dissection scissors.? I then took the elbow through range of motion and there was no instability or subluxating of the ulnar nerve.? This completed?cubital tunnel release.? ?Next the wound bed was thoroughly irrigated.? Tourniquet was deflated.? Hemostasis was satisfactory at the?cubital tunnel release surgery site. I then inspected the carpal tunnel incision and this was found to have satisfactory hemostasis and all this was maintained through bipolar electrocautery.? At this point time I sequentially closed?cubital tunnel site with 3-0 Vicryl suture in a running horizontal mattress nylon stitch.? ? The carpal tunnel release surgery was then closed in standard interrupted mattress fashion.? Dressing was Xeroform 4 x 4's ABD Curlex soft roll and an Gary wrap has a bulky soft dressing. Patient was then awakened from anesthesia and taken to PACU in stable condition. Disposition: Patient taken to PACU in stable condition recovering well.? Patient will receive appropriate discharge instructions as well as pain medication postoperatively.? We will follow-up with me in the office in 2 weeks.? Patient understands agrees with current plan.? All questions answered.? He understands if any questions or concerns and contact the office for follow-up appointment..
--- NOTE | 2023-11-27 15:55 | ANE.PACU2 ---
Inpatient post-anesthesia follow up: Airway intact: Yes Vital signs: Temperature 97.7 F Pulse Rate 73 Respiratory Rate 16 Blood Pressure 148/84 Pulse Oximetry 96 Oxygen Delivery Me thod Room Air Oxygen Flow Rate 6 Fraction of Inspir ed Oxygen Hydration adequate: Yes Nausea and vomiting: No Pain level: 1 Mental status: Baseline
== END | disposition home or self-care (01) ==
PROVIDERS: Anesthesiology; PCP Family Medicine; Visit Provider Student in an Organized Health Care Education/Training Program
PROC: (CPT 64721; principal; 2023-11-27 12:20)
PROC: (CPT 64718; 2023-11-27 12:20)
DX: G56.02 Carpal tunnel syndrome, left upper limb (principal); G56.22 Lesion of ulnar nerve, left upper limb; G47.30 Sleep apnea, unspecified; I10 Essential (primary) hypertension; E66.01 Morbid (severe) obesity due to excess calories; Z68.36 Body mass index [BMI] 36.0-36.9, adult; Z86.73 Personal history of transient ischemic attack (TIA), and cerebral infarction without residual deficits; N40.0 Benign prostatic hyperplasia without lower urinary tract symptoms
CPT/HCPCS: 64718; 64721; 64727; 36415; 80048; J0131; J0690; J1100; J1885; J2405; J2704; J2795; J3010; J7030

== ENCOUNTER → 2023-12-10 13:27 | Outpatient (BNVA) | payer MEDICARE, BC, SELFPAY | PROVIDERS: PCP Family Medicine; Visit Provider Physician Assistant | DX: Z98.890 Other specified postprocedural states (principal) | CPT/HCPCS: 99024 ==

== ENCOUNTER 2023-12-21 06:00 | Outpatient (RCR) | payer MEDICARE, BC, SELFPAY | END 2024-01-19 23:59 | disposition home or self-care (01) | LOC: SPT 06:00 | PROVIDERS: PCP Family Medicine; Visit Provider Family Medicine | DX: M54.50 Low back pain, unspecified (principal) | CPT/HCPCS: 97110 ==

== ENCOUNTER → 2024-01-12 14:22 | Outpatient (BNVA) | payer MEDICARE, BC, SELFPAY | PROVIDERS: PCP Family Medicine; Visit Provider Specialist | DX: Z53.29 Procedure and treatment not carried out because of patient's decision for other reasons; I67.89 Other cerebrovascular disease; H91.92 Unspecified hearing loss, left ear; R26.9 Unspecified abnormalities of gait and mobility; G56.03 Carpal tunnel syndrome, bilateral upper limbs; H02.409 Unspecified ptosis of unspecified eyelid; R29.90 Unspecified symptoms and signs involving the nervous system; H02.403 Unspecified ptosis of bilateral eyelids; M54.50 Low back pain, unspecified; D36.11 Benign neoplasm of peripheral nerves and autonomic nervous system of face, head, and neck; G62.89 Other specified polyneuropathies; H81.10 Benign paroxysmal vertigo, unspecified ear | CPT/HCPCS: G0463 ==

== ENCOUNTER → 2024-01-14 15:30 | Outpatient (BNVA) | payer MEDICARE, BC, SELFPAY | PROVIDERS: PCP Family Medicine; Visit Provider Physician Assistant | DX: Z98.890 Other specified postprocedural states (principal) | CPT/HCPCS: 99024 ==

== ENCOUNTER 2024-03-17 13:34 | Outpatient (CLI) | payer MEDICARE, BC, SELFPAY ==
--- NOTE | 2024-03-17 13:45 | MR_ITS ---
WS: [id number] MRI HEAD WITH CONTRAST WITH ATTENTION TO THE INTERNAL AUDITORY CANALS TECHNIQUE: Sagittal T1, T2 axial, T2 axial flair, axial susceptibility weighted imaging, axial diffus ion weighted images, and coronal T2 images were obtained. Pre and post T1 axial and post T1 coronal i mages. ADC and FSPGR images. Post gadolinium images with attention to the internal auditory canals. A xial fiesta imaging. CLINICAL INFORMATION: ACOUSTIC NEUROMA BRAIN TUMOR COMPARISON: MRI 09/02/2023 FINDINGS: Again seen is the previously described enhancing lesion in the distal LEFT IAC compatible with vestib ular schwannoma. Previously this measured 5.0 x 3.8 mm. Today this measures approximately 6.3 mm in l ength with increased enhancement in the distal LEFT IAC best appreciated on the coronal thin slice im aging. Transverse dimension is stable at 3.8 mm. There also appears to be increased enhancement invol ving the tympanic and labyrinthine segments of the 7th cranial nerve and geniculate ganglion. No other remarkable changes compared to the prior examination. RIGHT IAC is normal in appearance. Normal trigeminal nerve root entry zones. No evidence of restricted diffusion to suggest acute ischemia. Ventricular system and basal cisterns are patent. Moderate small vessel changes. Mild parenchymal volume loss. Normal posterior fossa. Norm al vascular flow voids at the skull base. No extra-axial fluid collections. No evidence of mass or ma ss effect. Mild mucosal thickening paranasal sinuses. Mastoid air cells are well aerated. Normal post erior nasopharynx. MR/MR iac's wo/w con* [id number] IMPRESSION: 1. 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 2. No other significant changes compared to previous
[2024-03-17] MEDS: gadobenate dimeglumine 20 mL vial IV (14:44)
== END 2024-03-17 13:35 | disposition home or self-care (01) ==
LOC: RAD 13:35
PROVIDERS: PCP Family Medicine; Visit Provider Physician Assistant Surgical
DX: D49.6 Neoplasm of unspecified behavior of brain (principal)
CPT/HCPCS: 70553

== ENCOUNTER 2024-05-22 13:52 | Emergency (ER) | payer MEDICARE, BC, SELFPAY ==
[2024-05-22 13:53] VITALS: BP 175/86; PULSE 80; RESP 16; TEMP 36.7; O2SAT 97; BMI 34.9
--- NOTE | 2024-05-22 13:59 | ECG_ITS ---
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: : 1950 Requested By: Michelle Montelongo Order Number: [id number] Reading MD: Measurements Intervals Divide Rate: 72 P: 54 FL: 185 QRS: -35 QRSD: 109 T: 52 QT: 380 QTc: 418 Interpretive Statements SINUS RHYTHM LEFT AXIS DEVIATION [QRS AXIS < -30] LOW QRS VOLTAGE IN PRECORDIAL LEADS [QRS DEFLECTION < 1.0 mV IN CHEST LEADS] INCOMPLETE RIGHT BUNDLE BRANCH BLOCK [90+ ms QRS DURATION, TERMINAL R IN V1/V2, 40+ ms S IN I/aVL/V4/V5/V6] POSSIBLE ANTERIOR MYOCARDIAL INFARCTION , PROBABLY OLD [30 ms Q WAVE IN V3/V4, OR R < 0.2 mV IN V4] [id number]
--- NOTE | 2024-05-22 15:22 | CTR_ITS ---
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 Radiation optimization: All CT scans at this facility use at least one of these dose optimization techniques: automated exposure control; mA and/or kV adjustment per patient size (includes targeted exams where dose is matched to clinical indication); or iterative reconstruction. COMPARISON: CT head wo con* [id number] 05/24/2023 10:34 PM RADIATION DOSE METRICS: Total DLP (mGy-cm): 1147.65 FINDINGS: Brain: No hemorrhage. No edema. Moderate diffuse cerebral atrophy and mild sequela of chronic small vessel ischemic disease. No mass effect. Cerebral ventricles: No ventriculomegaly. Paranasal sinuses: Visualized sinuses are unremarkable. No fluid levels. Mastoid air cells: Visualized mastoid air cells are well aerated. Bones: Unremarkable. No acute fracture. Soft tissues: Unremarkable. CT/CT head wo con* [id number] IMPRESSION: No acute intracranial abnormality.
== END 2024-05-22 17:55 | disposition left against medical advice (07) ==
PROVIDERS: Emergency Provider Family Medicine; PCP Family Medicine
DX: Z53.21 Procedure and treatment not carried out due to patient leaving prior to being seen by health care provider (principal)
CPT/HCPCS: 70450; 93005

== ENCOUNTER 2024-05-31 14:15 | Outpatient (CLI) | payer MEDICARE, BC, SELFPAY ==
--- NOTE | 2024-05-31 14:28 | XR_ITS ---
WS: [id number] XR cervical spine 3V* [id number] REASON FOR EXAM: pain of neck, odontoid process view please FINDINGS: Slight reversal of the normal lordosis of the cervical spine. Normal odontoid. No vertebral body compression deformity and no focal vertebral body lesion. Mild narrowing of the disc spaces C4-C7. Extensive anterior osteophytosis C4-C7. Uncovertebral osteophytosis C3-C5 most notable on the right at C4-C5. No significant listhesis. XR/XR cervical spine 3V* [id number] IMPRESSION: Cervical degenerative spondylosis as above.
== END 2024-05-31 14:16 | disposition home or self-care (01) ==
LOC: RAD 14:17
PROVIDERS: PCP Family Medicine; Visit Provider Family Medicine
DX: M47.892 Other spondylosis, cervical region (principal); R93.7 Abnormal findings on diagnostic imaging of other parts of musculoskeletal system
CPT/HCPCS: 72040

== ENCOUNTER → 2024-06-17 15:26 | Outpatient (BNVA) | payer MEDICARE, BC, SELFPAY | PROVIDERS: PCP Family Medicine; Referring Provider Family Medicine; Visit Provider Orthopaedic Surgery | DX: M54.2 Cervicalgia (principal) | CPT/HCPCS: 72050; 99204 ==

== ENCOUNTER 2024-06-30 14:48 | Outpatient (CLI) | payer MEDICARE, BC, SELFPAY ==
--- NOTE | 2024-06-30 15:15 | MR_ITS ---
WS: [id number] MRI CERVICAL SPINE NONCONTRAST HISTORY: Cervical pain. COMPARISON: None available. Technique: Multiplanar, multisequence noncontrast imaging of the cervical spine. Straightening of the normal cervical lordosis. Disc spaces are moderately desiccated. Hypertrophic osteophytes throughout the cervical spine but greatest at C5 and C6. No acute fracture or marrow edema. No definite signal abnormality within the cord. Craniocervical junction, C1 and C2 relationship, odontoid process and soft tissues are normal. C2-C3: Small foraminal osteophytes. No stenosis. C3-C4: Osteophytic ridging and annular disc bulging with marked ligamentum flavum and facet arthritis. Moderate central with severe bilateral foraminal stenosis and facet arthritis, LEFT greater than RIGHT. C4-C5: Large central disc protrusion with osteophytic ridging, osteophytic ridging and moderate facet arthritis. Severe central and bilateral foraminal stenosis. C5-C6: Moderate size central disc protrusion with osteophytic ridging and bilateral facet arthritis. Increased T2 signal in the LEFT facets. Severe central and bilateral foraminal stenosis. C6-C7: Small central disc protrusion with osteophytic ridging and annular disc bulging. Moderate central with severe bilateral facet arthritis and facet arthropathy. C7-T1: Mild annular disc bulging with bilateral foraminal osteophytes. Mild central and moderate foraminal stenosis. Foraminal stenosis continues at T1-2. T2 anterolisthesis by 3 mm. At T2-3 there is at least moderate bilateral foraminal stenosis if not severe. MR/MR cervical spin wo con* [id number] IMPRESSION: 1. Advanced cervical spondylosis. Multilevel areas of central and foraminal st enosis due to combination of disc bulging, disc protrusions, osteophytosis and facet arthritis. 2. C4-5 and C5-6: Severe central and bilateral foraminal stenosis. 3. C6-7: Moderate central with severe foraminal stenosis. 4. C7-T1: Mild central with moderate foraminal stenosis. 5. C3-4: Moderate central with severe bilateral foraminal stenosis. 6. Advanced facet joint arthritis throughout the cervical spine. 7. T2-3: Included only on the sagittal sequence but there does appear to be at least moderate bilateral foraminal stenosis if not severe. This can be further evaluated by MRI thoracic spine. 8. No cord myelomalacia is identified at this time. There is significant encro achment upon the cord due to the disc and osteophyte disease.
== END 2024-06-30 14:49 | disposition home or self-care (01) ==
PROVIDERS: PCP Family Medicine; Visit Provider Orthopaedic Surgery
DX: M47.892 Other spondylosis, cervical region (principal); M48.02 Spinal stenosis, cervical region; M48.03 Spinal stenosis, cervicothoracic region; M48.04 Spinal stenosis, thoracic region; R93.7 Abnormal findings on diagnostic imaging of other parts of musculoskeletal system; M25.78 Osteophyte, vertebrae; M50.31 Other cervical disc degeneration, high cervical region; M24.28 Disorder of ligament, vertebrae; M50.221 Other cervical disc displacement at C4-C5 level; M50.222 Other cervical disc displacement at C5-C6 level; M50.223 Other cervical disc displacement at C6-C7 level; M50.323 Other cervical disc degeneration at C6-C7 level; M50.33 Other cervical disc degeneration, cervicothoracic region; M43.14 Spondylolisthesis, thoracic region
CPT/HCPCS: 72141

== ENCOUNTER 2024-07-09 12:31 | Outpatient (RCR) | payer MEDICARE, BC, SELFPAY | END 2024-07-19 23:59 | disposition home or self-care (01) | LOC: SPT 12:31 | PROVIDERS: PCP Family Medicine; Visit Provider Orthopaedic Surgery | DX: M54.2 Cervicalgia (principal); G89.29 Other chronic pain | CPT/HCPCS: 97110; 97161 ==

== ENCOUNTER → 2024-07-15 14:20 | Outpatient (BNVA) | payer MEDICARE, BC, SELFPAY | PROVIDERS: PCP Family Medicine; Visit Provider Orthopaedic Surgery | DX: Z01.818 Encounter for other preprocedural examination (principal); M47.12 Other spondylosis with myelopathy, cervical region | CPT/HCPCS: 36415; 80053; 81001; 85025; 99214 ==

== ENCOUNTER 2024-07-20 06:00 | Outpatient (RCR) | payer MEDICARE, BC, SELFPAY | END 2024-08-18 23:59 | disposition home or self-care (01) | LOC: SPT 06:00 | PROVIDERS: PCP Family Medicine; Visit Provider Orthopaedic Surgery | DX: M54.2 Cervicalgia (principal); G89.29 Other chronic pain | CPT/HCPCS: 97110 ==

== ENCOUNTER 2024-07-29 16:09 | Outpatient (CLI) | payer MEDICARE, BC, SELFPAY ==
--- NOTE | 2024-07-29 16:30 | MR_ITS ---
WS: [id number] MRI BRAIN WITH HIGH-RESOLUTION IMAGING THROUGH THE INTERNAL AUDITORY CANALS WITHOUT AND WITH CONTRAST HISTORY: NEOPLASM OF UNSPECIFIED BEHAVIOR OF BRAIN/HEADACHE COMPARISON: 03/17/2024, 09/02/2023 TECHNIQUE: Multiplanar, multisequence imaging is performed through the brain. Additional 3 mm imaging performed in multiple planes through the internal auditory canal. Postcontrast imaging with 20 ml's of MultiHance. Reidentified is a previously described intensely enhancing mass in the distal LEFT IAC consistent with vestibular schwannoma. Transverse diameter of 8.8 mm with taillike extension into the geniculate ganglion. There is intense enhancement within the schwannoma but also enhancement extending into the t ympanic and labyrinth segments of the 7th cranial nerve. AP diameter of 4.9 mm. Minimal progression progression in size since 03/17/2024. No new areas of enhancement at the cerebellopontine angle. RIGHT internal auditory canal is negative. No diffusion abnormality. Moderate small vessel ischemic changes and mild cerebral and cerebellar atrophy. No acute infarct. Ventricles are normal size. Normal flow voids. No additional areas of abnormal enhancement within the brain. No vascular malformations. Dural venous sinuses are negative. Paranasal sinuses: Mild mucoperiosteal thickening in the ethmoid air cells and RIGHT maxillary sinus. No air-fluid levels. Mastoid air cells: Normal. Calvarium and scalp: Normal. MR/MR iac's wo/w con* [id number] IMPRESSION: 1. 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 Length of the enhancing mass 8.8 mm with extension into the alison culate ganglion. Prior measurement of 6.3 mm. 2. Moderate small vessel disease and mild cerebral volume loss. 3. No acute infarct.
[2024-07-29] MEDS: gadobenate dimeglumine 20 mL vial IV (17:11)
== END 2024-07-29 16:10 | disposition home or self-care (01) ==
PROVIDERS: PCP Family Medicine; Visit Provider Physician Assistant Surgical
DX: D49.6 Neoplasm of unspecified behavior of brain (principal); R51.9 Headache, unspecified; I67.9 Cerebrovascular disease, unspecified; R93.0 Abnormal findings on diagnostic imaging of skull and head, not elsewhere classified; G31.89 Other specified degenerative diseases of nervous system
CPT/HCPCS: 70553

== ENCOUNTER → 2024-08-02 12:01 | Outpatient (BNVA) | payer MEDICARE, BC, SELFPAY | PROVIDERS: PCP Family Medicine; Referring Provider Orthopaedic Surgery; Visit Provider Anesthesiology Pain Medicine | DX: M54.50 Low back pain, unspecified (principal); M54.2 Cervicalgia; G56.03 Carpal tunnel syndrome, bilateral upper limbs; Z98.890 Other specified postprocedural states; M47.12 Other spondylosis with myelopathy, cervical region | CPT/HCPCS: 72110; 99205 ==

== ENCOUNTER → 2024-08-03 15:52 | Outpatient (BNVA) | payer MEDICARE, BC, SELFPAY | PROVIDERS: PCP Family Medicine; Referring Provider Psychiatry & Neurology Neurology; Visit Provider Psychiatry & Neurology Neurology | DX: M47.12 Other spondylosis with myelopathy, cervical region (principal); M54.2 Cervicalgia; M65.331 Trigger finger, right middle finger; G62.89 Other specified polyneuropathies | CPT/HCPCS: 95885; 95913 ==

== ENCOUNTER 2024-08-10 15:04 | Outpatient (CLI) | payer MEDICARE, BC, SELFPAY ==
--- NOTE | 2024-08-10 15:15 | MR_ITS ---
WS: [id number] MRI LUMBAR SPINE NONCONTRAST HISTORY: M54.16 - Radiculopathy, lumbar region COMPARISON: None available. TECHNIQUE: Sagittal and axial multisequence imaging is submitted. Disc and osteophyte encroachment upon the cervical canal. Recent MRI the C-spine was performed on 06/30/2024. T2 anterolisthesis by 2 mm. There is a very small central disc protrusion contacting the cord. There is some mild deformity of the thoracic cord at this level. Straightening of the normal lumbar lordosis. Osteophytes and annular disc bulging. Fusion across the L5-S1 disc. Disc spaces are narrowed and desiccated. Conus terminates normally at L1. L1-L2: Diffuse osteophytic ridging and annular disc bulging. Marked ligamentum flavum and facet arthritis. Moderate central, subarticular recess and mild foraminal stenosis. L2-L3: Marked annular disc bulging, osteophytic ridging, ligamentum flavum and facet arthritis. Severe central, bilateral subarticular recess and moderate foraminal stenosis. L3-L4: Diffuse annular disc bulging with marked ligamentum flavum hypertrophy and facet arthritis. Severe central, bilateral subarticular recess and moderate to severe foraminal stenosis. L4-L5: Diffuse annular disc bulging with a large central disc protrusion displacing the thecal sac and the traversing L5 nerve roots. Ligamentum flavum and facet arthritis. Disc osteophyte complexes in the foramina. Severe central and bilateral subarticular recess and foraminal stenosis. L5-S1: Mild osteophytic ridging. Osteophytes encroach into the foramina bilaterally. No central stenosis. Mild subarticular recess and moderate bilateral foraminal stenosis predominantly due to osteophytes. Paravertebral soft tissues are negative. MR/MR lumbar spine wo con* [id number] IMPRESSION: 1. Severe multilevel facet joint arthropathy with disc and osteophytosis. Exte nsive central, subarticular recess and foraminal stenosis at secondary to disc, osteophyte and facet arthropathy. 2. L4-5: Large central disc protrusion. Osteophytic ridging and facet arthropa thy resulting in severe central, bilateral subarticular recess and foraminal st enosis. 3. L3-4: Severe central, bilateral subarticular recess and moderate to severe foraminal stenosis. 4. L2-3: Severe central, bilateral subarticular recess and moderate foraminal stenosis. 5. L1-2: Moderate central, subarticular recess and mild foraminal stenosis. 6. L5-S1: Mild subarticular recess encroachment with moderate bilateral forami nal stenosis due to osteophytes.
== END 2024-08-10 15:05 | disposition home or self-care (01) ==
LOC: RAD 15:05
PROVIDERS: PCP Family Medicine; Visit Provider Anesthesiology Pain Medicine
DX: M54.16 Radiculopathy, lumbar region (principal); M47.896 Other spondylosis, lumbar region; M25.78 Osteophyte, vertebrae; M48.061 Spinal stenosis, lumbar region without neurogenic claudication; M51.26 Other intervertebral disc displacement, lumbar region; M48.07 Spinal stenosis, lumbosacral region; M43.14 Spondylolisthesis, thoracic region; M51.24 Other intervertebral disc displacement, thoracic region; R93.7 Abnormal findings on diagnostic imaging of other parts of musculoskeletal system; M51.34 Other intervertebral disc degeneration, thoracic region; Z98.1 Arthrodesis status; M51.369 Other intervertebral disc degeneration, lumbar region without mention of lumbar back pain or lower extremity pain; M24.28 Disorder of ligament, vertebrae
CPT/HCPCS: 72148

== ENCOUNTER 2024-08-23 10:10 | Inpatient (IN) | payer MEDICARE, BC, SELFPAY ==
--- OUTSIDE RECORDS SUMMARY | 2023-10-11 04:00 | XMS_ITS ---
Author Organization [facility] Address [address] [place] [address] Care Team Providers Care Oil Tanker Captain Name Role Phone Milana Sauceda Primary Care Provider UnavailEder Hawkins Unavailable [phone] MILO MORENO Unavailable Unavailable Migration, Provider Unavailable Unavailable REASON FOR VISIT EMR-Shad Encounters Encounter Location Date Provider Diagnosis Migrated_Facility 0 0 10/11/2023 Provider Migration Plan Of Treatment Medication Medication Name Sig Start Date Stop Date Notes Alfuzosin HCl ER 10 MG Oral 07/16/2022 07/11/2023 Tamsulosin HCl 0.4 MG Oral 07/16/2022 08/15/2022 Hydrochlorothiazide 12.5 MG / Lisinopril 20 MG Oral Tablet ORAL 05/29/2022 *Re order from [facility] for eRx and Interaction Alerts* Progress Notes * Randall ZAVALADOB:1950 (74 yo M)Acc No.[id number]:10/11/2023 Patient: Randall PAULINO :1950 A ge:73 Y S ex:Male Address:[address] [facility], [place] [address] * Refills Stop Tamsulosin HCl Capsule, 0.4 MG, Oral Stop Alfuzosin HCl ER Tablet Extended Release 24 Hour, 10 MG, Oral Stop Alfuzosin HCl ER Tablet Extended Release 24 Hour, 10 MG, Oral Stop Hydrochlorothiazide 12.5 MG / Lisinopril 20 MG Oral Tablet, ORAL Subjective: * Chief Complaints: * E MR-Shad * Medical History: * Surgical History: * Hospitalization/Major Diagno stic Procedure: * Medications: Objective: * Vitals: * Physical Examination: Assessment: Plan: * Treatment: * Procedure Codes: * * Date:
--- OUTSIDE RECORDS SUMMARY | 2023-10-12 04:00 | XMS_ITS ---
Author Organization [facility] Address [address] [place] [address] Care Team Providers Care Construction Analyst Name Role Phone Milana Sauceda Primary Care Provider UnavailEder Hawkins Unavailable [phone] MILO MORENO Unavailable Unavailable Migration, Provider Unavailable Unavailable Allergies Allergen (clinical drug ingredient) Drug/Non Drug Allergy documented on EMR Reaction Allergy Type Onset Date Status ciprofloxacin Cipro Unknown Drug Allergy Act eli Iodine Unknown Drug Allergy 12/30/2018 active naproxen Naproxen Unknown Drug Allergy 12/30/2018 active Iodinated contrast media (substance) Iodinated Diagnostic Agents Unknown Drug Allergy Active REASON FOR VISIT EMR-Shad Medications Medication SIG (Take, Route, Frequency, Duration) Notes Start Date End Date Status Sulfamethoxazole-Trimetho prim 800-160 MG Oral 07/16/2022 07/23/2022 Active diazePAM 10 MG Oral 07/19/2022 07/20/2022 Act eli Lisinopril 10 MG Oral 05/29/2022 08/27/2022 A ctive Tamsulosin HCl 0.4 MG Oral 08/14/2022 024 Active Encounters Encounter Location Date Provider Diagnosis Migrated_Facility 0 0 10/12/2023 Provider Migration Plan Of Treatment No Information Progress Notes * Randall ZAVALADOB:1950 (74 yo M)Acc No.[id number]:10/12/2023 Patient: Randall PAULINO :1950 A ge:73 Y S ex:Male Address:[address] [facility] [facility] [address], [place] [address] Subjective: * Chief Complaints: * E MR-Shad * Medical History: * Surgical History: * Hospitalization/Major Diagno stic Procedure: * Family History: F ather: PRN - Father: . M other: PRN - Mother: :: Cancer,,known absent . * Social History: M igrated Social History: M igrated Social History: Smoking Status : Never used tobacco , History of tobacco use :. * Medications: T akingdiazePAM 10 MG Tablet Oral , stop date 07/20/2022Lisinopril 10 MG Tablet Oral , stop date 08/27/2022Sulfamethoxazole-Trimethoprim 800-160 MG Tablet Oral , stop date 07/23/2022Tamsulosin HCl 0.4 MG Capsule Oral Tamsulosin HCl 0.4 MG Capsule Oral , stop date 08/09/2023Taking diazePAM 10 MG Tablet Oral , stop date 07/20/2022Taking Lisinopril 10 MG Tablet Oral , stop date 08/27/2022Taking Sulfamethoxazole-Trimethoprim 800-160 MG Tablet Oral , stop date 07/23/2022Taking Tamsulosin HCl 0.4 MG Capsule Oral Taking Tamsulosin HCl 0.4 MG Capsule Oral , stop date 08/09/2023 * Allergies: I odine: Allergy - Onset Date 12/30/2018Naproxen: Allergy - Onset Date 12/30/2018Cipro: AllergyIodinated Diagnostic Agents: Allergy Objective: * Vitals: * Physical Examination: Assessment: Plan: * Treatment: * Procedure Codes: * * Date:
[2024-08-23] VITALS (19 sets, daily range): BP systolic 128–158; BP diastolic 71–91; PULSE 80–109; RESP 10–22; TEMP 36.1–37.4; O2SAT 93–100; BMI 34.9; BMI 37.3
--- NOTE | 2024-08-23 06:01 | P.ANESASSM_ITS ---
Pre-Anesthetic Assessment Height/Weight: Height 5 ft 11 in Temp Pulse Resp BP Pulse Ox O2 Del Method 97 F L 100 20 H 146/77 95 Room Air 08/23/24 05:57 08/23/24 05:57 08/23/24 05:57 08/23/24 05:57 08/23/24 05:57 08/23/24 05:57 Preop Diagnosis: Cervical stenosis with myelopathy Operation Date: 08/23/24 07:00 Proposed Procedures p Anterior Cervical Discectomy & Fusion ACDF w/ Anterior Interbody Fusion w/ Cage w/ Instrumentation w/ Allograft w/ Navigation(Not Applicable) - Rob Terry, DO Was Beta Pepe taken within 24 hours: N/A Was Clonidine taken within 24 hours: N/A Social No alcohol and No tobacco Exam alert, oriented x 3, clear to auscultation bilaterally and regular rate & rhythm Airway Submandibular: within normal limits Cervical ROM: within normal limits Mallampati: Class I Dentition: full Anesthetic Plan ASA status: 3 Anesthesia: General Other: No prior issues with anesthesia NPO since yesterday evening History of hypertension on lisinopril Prior CELIO, lost weight and does not need CPAP anymore 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 This leads to recurrent episodes of vertigo. They are planning on ablation in the future Labs reviewed 07/15/2024 and acceptable for procedure EKG showing sinus rhythm with RBBB Plan for GETA, explained to patient he is at increased risk for nausea due to inner ear issue. We will give prophylactic antiemetics and treat in PACU if needed Medications/Allergies Home Medications ?Medication ?Instructions ?Recorded ?Confirmed ?Last Taken ?Type CPAP (Auto-Titrating CPAP) #1 ea 06/27/23 08/03/24 Unk nown Rx bipap #1 ea 10/07/23 08/03/24 Unkn own Rx cane #1 ea 10/07/23 08/03/24 Unkn own Rx lisinopril 10 mg tablet 10 mg PO DAILY #90 tabs /2 08/19/24 2 Days Ago Rx ~08/17/24 amitriptyline 25 mg tablet 25 mg PO .qhs 05/26/24 05/0 05/15 1 Day Ago History ~08/18/24 tamsulosin 0.4 mg capsule 0.4 mg PO BID #180 caps 07/2108/19/24 1 Day Ago Rx ~08/18/24 Allergies Allergy/AdvReac Type Severity Reaction Status Date / Time ciprofloxacin (From Cipro) Allergy Intermediate Vomiting Verified 08/03/24 16:28 celecoxib (From Celebrex) Allergy ADR/ALGY-Hy Verified 08/03/24 16:28 potension Iodinated Contrast Media Allergy Vomiting Verified 08/03/24 16:28 meloxicam (From Mobic) Allergy ADR-Hyperte Verified 08/03/24 16:28 nsion [facility] Anesthesia Medical History BPH (benign prostatic hyperplasia) Surgical History Status post carpal tunnel release History of tonsillectomy History of rhinoplasty deviated septum History of lumbar surgery x 2; L4/5 & L5/S1 History of cholecystectomy Family History Mother Lung cancer smoker Father CAD (coronary artery disease) Social History Smoking and tobacco/nicotine status: unknown if used tobacco/nicotine Alcohol intake: never Substance/Drug Use: never Lives independently: Yes Household members: spouse Marital status: Marital status details: in 2003 Highest education level completed: Other Doctoral Degree 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
[2024-08-23] MEDS: sodium chloride 0.9% 1,000 ML 30 ML IV (06:28)
--- NOTE | 2024-08-23 06:36 | W.PM.OPSFHP ---
Same Day Surgery H&P Indication for Procedure/HPI DATE OF PROCEDURE: August 23, 2024 CHIEF COMPLAINT/INDICATIONFOR SURGICAL PROCEDURE: Neck and arm pain PREOP DIAGNOSIS: Cervical stenosis with myelopathy PLANNED PROCEDURE: Operation Date: 08/23/24 07:00 Proposed Procedures p Anterior Cervical Discectomy & Fusion ACDF w/ Anterior Interbody Fusion w/ Cage w/ Instrumentation w/ Allograft w/ Navigation(Not Applicable) - Rob Teryr, DO Medications/Allergies* Home Medications ?Medication ?Instructions ?Recorded ?Confirmed ?Type amitriptyline 25 mg tablet 25 mg PO .qhs 05/26/24 08/19/24 History Allergies/Adverse Reactions Allergy/AdvReac Type Severity Reaction Status Date / Time ciprofloxacin (From Cipro) Allergy Intermediate Vomiting Verified 08/03/24 16:28 celecoxib (From Celebrex) Allergy ADR/ALGY-Hy Verified 08/03/24 16:28 potension Iodinated Contrast Media Allergy Vomiting Verified 08/03/24 16:28 meloxicam (From Mobic) Allergy ADR-Hyperte Verified 08/03/24 16:28 nsion Current Medications: Generic Name Dose Route Start Last Admin Trade Name Freq PRN Reason Stop Dose Admin Sodium Chloride 1,000 mls @ 30 mls/hr 08/23/24 06:00 08/23/24 06:28 Sodium Chloride 0.9% IV 08/24/24 05:59 30 mls/hr .Q24H VILLA Administration Pertinent History/Comorbid Conditions* Medical History (Updated 08/03/24 @ 17:58 by Levi Castillo MD) BPH (benign prostatic hyperplasia) Surgical History (Updated 08/03/24 @ 17:58 by Levi Castillo MD) Status post carpal tunnel release History of tonsillectomy History of rhinoplasty deviated septum History of lumbar surgery x 2; L4/5 & L5/S1 History of cholecystectomy Family History (Updated 05/15/23 @ 13:46 by Vanna Woodard MD) CAD (coronary artery disease) Father Lung cancer Mother smoker Social History Smoking and tobacco/nicotine status: unknown if used tobacco/nicotine Alcohol intake: never Substance/Drug Use: never Lives independently: Yes Household members: spouse Marital status: Marital status details: in 2003 Highest education level completed: Other Doctoral Degree 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
[2024-08-23] MEDS: ceFAZolin 2,000 mg SDV 2000 MG IVP ×2 (07:30→16:25)
[2024-08-23] MEDS: lidocaine-epi 1% 20 mL INJ INJECTION (07:41)
--- NOTE | 2024-08-23 10:04 | PM.OP ---
Operative Report Date of procedure: August 23, 2024 Pre-op diagnosis: Cervical stenosis with myelopathy Post-op diagnosis: same Procedure done: 1. Anterior discectomy C3/4 2. Anterior discectomy C4/5 3. Anterior diskectomy C5/6 4. Anterior discectomy C6/7 5. Insertion of cage at C3/4 6. Insertion of cage at C4/5 7. Insertion of cage C5/6 8. Insertion of Cage C6/7 9. Instrumentation with anterior plate from C3-C7 10. Use of allograft Surgeon: Rob Terry DO Estimated blood loss (mL): 20 Procedure: 1. Anterior discectomy C3/4 2. Anterior discectomy C4/5 3. Anterior diskectomy C5/6 4. Anterior discectomy C6/7 5. Insertion of cage at C3/4 6. Insertion of cage at C4/5 7. Insertion of cage C5/6 8. Insertion of Cage C6/7 9. Instrumentation with anterior plate from C3-C7 10. Use of allograft The patient was taken to the operating room, where he underwent general endotracheal anesthesia without complications. He was then positioned supine on the operating table, and all areas of impingement were well padded. The arms were carefully padded and tucked at his sides. A roll was placed between the shoulder blades.. An x-ray was done to determine the appropriate level for the skin incision. The entire neck was then sterilely prepped and draped in the usual fashion. Neuromonitoring was attached prior to prepping. A transverse skin incision was made and carried down to the platysma muscle. This was then split in line with its fibers. Blunt dissection was carried down medial to the carotid sheath and lateral to the trachea and esophagus until the anterior cervical spine was visualized. A needle was placed into a disc and an x-ray was done to determine its location. The longus colli muscles were then elevated bilaterally with the electrocautery unit. Self-retaining retractors were placed deep to the longus colli muscle. Attention was brought to the C3/4 level that was confirmed on x-ray. A caspar pin was placed into the C3 vertebrae and the C4 vertebrae. The disk space was then distracted. The microscope was then brought in. A radical anterior discectomies were performed at C3/4. This included complete removal of the anterior annulus, nucleus, and posterior annulus. The posterior longitudinal ligament was removed as were the posterior osteophytes. Foraminotomies were then accomplished bilaterally. This was done using a high speed linda, kerrison rongeurs and curretes Once all of this was accomplished, the curved currette was used to check for any residual compression. The central canal was wide open as were the foramen. A high-speed bur was used to remove the cartilaginous endplates above and below the interspace. Bleeding cancellous bone was exposed. The disc space were measured and appropriate size cage were placed sterilely onto the field. Allograft graft was packed into the cages. The cage was then placed and there was good juxtaposition against the bleeding decorticated surfaces and good distraction of each interspace. Attention was brought to the next interspace. The [place] pins were removed. Bone wax was used to prevent any bleeding from occurring at the pin sites. Attention was brought to the C4/5 level that was confirmed on x-ray. A caspar pin was placed into the C4 vertebrae and the C5 vertebrae. The disk space was then distracted. The microscope was then brought in. A radical anterior discectomies were performed at C4/5. This included complete removal of the anterior annulus, nucleus, and posterior annulus. The posterior longitudinal ligament was removed as were the posterior osteophytes. Foraminotomies were then accomplished bilaterally. This was done using a high speed linda, kerrison rongeurs and curretes Once all of this was accomplished, the curved currette was used to check for any residual compression. The central canal was wide open as were the foramen. A high-speed bur was used to remove the cartilaginous endplates above and below the interspace. Bleeding cancellous bone was exposed. The disc space were measured and appropriate size cage were placed sterilely onto the field. Allograft graft was packed into the cages. The cage was then placed and there was good juxtaposition against the bleeding decorticated surfaces and good distraction of each interspace. Attention was brought to the next interspace. The [place] pins were removed. Bone wax was used to prevent any bleeding from occurring at the pin sites. Attention was brought to the C5/6 level that was confirmed on x-ray. A caspar pin was placed into the C 5 vertebrae and the C6 vertebrae. The disk space was then distracted. The microscope was then brought in. A radical anterior discectomies were performed at C5/6. This included complete removal of the anterior annulus, nucleus, and posterior annulus. The posterior longitudinal ligament was removed as were the posterior osteophytes. Foraminotomies were then accomplished bilaterally. This was done using a high speed linda, kerrison rongeurs and curretes Once all of this was accomplished, the curved currette was used to check for any residual compression. The central canal was wide open as were the foramen. A high-speed bur was used to remove the cartilaginous endplates above and below the interspace. Bleeding cancellous bone was exposed. The disc space were measured and appropriate size cage were placed sterilely onto the field. Allograft graft was packed into the cages. The cage was then placed and there was good juxtaposition against the bleeding decorticated surfaces and good distraction of each interspace. Attention was brought to the next interspace. The [place] pins were removed. Bone wax was used to prevent any bleeding from occurring at the pin sites. Attention was brought to the C 6/7 level that was confirmed on x-ray. A caspar pin was placed into the C6 vertebrae and the C7 vertebrae. The disk space was then distracted. The microscope was then brought in. A radical anterior discectomies were performed at C6/7. This included complete removal of the anterior annulus, nucleus, and posterior annulus. The posterior longitudinal ligament was removed as were the posterior osteophytes. Foraminotomies were then accomplished bilaterally. This was done using a high speed linda, kerrison rongeurs and curretes Once all of this was accomplished, the curved currette was used to check for any residual compression. The central canal was wide open as were the foramen. A high-speed bur was used to remove the cartilaginous endplates above and below the interspace. Bleeding cancellous bone was exposed. The disc space were measured and appropriate size cage were placed sterilely onto the field. Allograft graft was packed into the cages. The cage was then placed and there was good juxtaposition against the bleeding decorticated surfaces and good distraction of each interspace. The [place] pins were removed. Bone wax was used to prevent any bleeding from occurring at the pin sites. The appropriate size anterior cervical locking plate was chosen and bent into gentle lordosis. Two screws were then placed into each of the vertebral bodies at C3, C4, C5, C6 and C7. There was excellent purchase. A final x-ray was done confirming good position of the hardware and Cages. The locking screws were then applied, also with excellent purchase. Following a final copious irrigation, there was good hemostasis and no dural leaks. The carotid pulse was strong. The wounds were then closed in layers using 2-0 Vicryl suture for the platysma muscle, 2-0 Vicryl suture for the subcutaneous tissue, and 4-0 monocryl suture in a subcuticular skin closure. Glue was placed followed by application of a sterile dressing. The drain was hooked to bulb suction. A soft collar was applied. The patient was then carefully returned to the supine position on his hospital bed where he was reversed and extubated and taken to the recovery room having tolerated the procedure well.
[2024-08-23] MEDS: fentaNYL 50 mcg/mL INJ 2mL IVP (10:22)
[2024-08-23 10:40] LABS: Glucose Point of Care 161 mg/dL (70-110)
--- NOTE | 2024-08-23 10:55 | ANE.PACU2 ---
Inpatient post-anesthesia follow up: Airway intact: Yes Vital signs: Temperature 97.7 F Pulse Rate 97 Respiratory Rate 15 Blood Pressure 135/85 Pulse Oximetry 97 Oxygen Delivery Me thod Room Air Oxygen Flow Rate 2 Fraction of Inspir ed Oxygen Hydration adequate: Yes Nausea and vomiting: No Pain level: 2 Mental status: Baseline Additional Comments: Patient has been having some vertigo. This was expected due to his intracranial mass
--- NOTE | 2024-08-23 11:09 | PC.NURSE ---
Patient taken to room 263 - Temp 97.6, HR 98, RR 18, BP 144/85, 97% on 2 L. AAKASH - SUSANA Pro at bedside.
--- OUTSIDE RECORDS SUMMARY | 2024-08-23 12:33 | XMS_ITS | Patient Health Record ---
Author Organization [facility] Address [address] [place], [place] [address] Care Team Providers Care Head Irrigator Name Role Phone AFTAB BRAUN Unavailable [phone] Allergies Allergen (clinical drug ingredient) Drug/Non Drug Allergy documented on EMR Reaction Allergy Type Onset Date Status ciprofloxacin Cipro Unknown Drug Allergy Act eli Iodinated contrast media (substance) Iodinated Diagnostic Agents Unknown Drug Allergy Active Reason For Referral No Information Medications Medication SIG (Take, Route, Fr equency, Duration) Notes Start Date End Date Status Phentermine HCl 37.5 MG 1 tablet Orally Once a day for 30 days Active Meloxicam Active Social History Tobacco Use: Social History Observation Description Date Details (start date - stop date) Never Smoker NA - NA Tobacco Use/Smoking Question Answer Notes Are you a: never smoker Problems Problem Type SNOMED Code ICD Code Onset Dates Problem Status W/U Status Risk Notes Problem Testicular hypofunction (827347080) Testicular hypofunction (E29.1) Active confirmed Problem Obesity, unspecified (E66.9) Active confirmed Problem Elevated PSA (341688823) Elevated prostate specific antigen [PSA] (R97.20) Active confirmed Plan Of Treatment Pending Test Test Name Order Date Blood Urea Nitrogen (BUN) [id number] 06/20/19 22 Creatinine (B) 77104 06/19/2021 Follicle Stimulating Hormone (FSH) 06541 06/05/2021 LH, Luteinizing Hormone [id number] 06/05/2021 MRI Pelvis w/ + w/o Cont--[id number] 06/20/19 22 PSA, TOTAL (5363) 06/05/2021 Insurance Providers Payer Name Payer Address Payer Phone Subscriber Number Group Number Insured Name Patient Relationship to Insured Coverage Start Date Coverage End Date [place] [address] [place] [id number] Randall Zavala Self - patient is the insured [place] [address] [place] [address] [id number] Randall Zavala Self - patient is the insured Medications Administered Medication Instructions Date of Administration Dosage Notes CYANOCOBALAMIN 07/05/2021 1 mg Medical (General) History Medical History History ICD Code hypertension elevated PSA osteoarthritis Surgical History Surgery Date(Month/Year) lumbar disc l5-s1 cholecystectomy
--- OUTSIDE RECORDS SUMMARY | 2024-08-23 12:33 | XMS_ITS | Clinical Summary ---
Author Organization Camille Avitia [facility] Address [address] [place] [id number] Care Team Providers Care Systems Coordinator Name Role Phone Unavailable Primary Care Provider Unavailabl e Allergies Active Allergy Reactions Criticality Noted Date Comments Ciprofloxacin Hives,Nausea and Vomiting High 021 Iodinated Contrast Media Delirium Medium 10/25/2020 Medications levocetirizine (Xyzal) 5 mg tabletIndications :Allergy, sequela Take 1 Tablet (5 mg) by mouth late in the day. 30 Tablet 1 Active meloxicam (MOBIC) 15 mg tablet Take 1 Tablet (15 mg) by mouth daily. 30 Tablet 1 2 Active lisinopriL (PRINIVIL) 10 mg tabletIndications :Benign hypertension TAKE TWO TABLETS BY MOUTH EVERY DAY 180 Tablet 3 Active Active Problems Problem Noted Date Diagnosed Date Benign hypertension 12/18/2020 CELIO (obstructive sleep apnea) 12/18/2020 Social History Tobacco Use Types Packs/Day Years Used Date Smoking Tobacco: Never Smokeless Tobacco: Never Tobacco Cessation:Counseling Given: No Alcohol Use Standard Drinks/Week Comments Yes 0 (1 standard drink = 0.6 oz pur e alcohol) occationally on holidays Sex and Gender Information Value Date Recorded Sex Assigned at Not on file 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 Gender Identity Not on file Sexual Orientation Not on file Last Filed Vital Signs Vital Sign Reading Time Taken Comments Blood Pressure 139/86 10/25/2020 12:17 PM CDT Pulse 78 10/25/2020 12:17 PM CDT Temperature - - Respiratory Rate - - Oxygen Saturation - - Inhaled Oxygen Concentration - - Weight 131.5 kg (290 lb) 12/18/2020 1:48 PM CDT Height 182.9 cm (6') 12/18/2020 1:48 PM CDT Body Mass Index 39.33 12/18/2020 1:48 PM CDT Plan of Treatment Health Maintenance Due Date Last Done Comments DTAP/TDAP/TD VACCINES (1 - Tdap) 1970 COLORECTAL SCREENING 1996 Colorectal Cancer Screening 1996 FIT-DNA Q 3 years 1996 FIT/FOBT Q 1 year 1996 Flex Sig/CT Colonography Q 5 years 1996 PNEUMOCOCCAL VACCINE 50+ YEARS (1 of 1 - PCV) 05/13/19 02 ZOSTER VACCINE (1 of 2) 2001 INFLUENZA VACCINE (#1) 2023 RSV VACCINE (60+ or ) (1 - 1-dose 75+ series) 2026 Insurance #[id number] [place] [address] MEDICARE PART A AND B BCBS SUPP
--- OUTSIDE RECORDS SUMMARY | 2024-08-23 12:33 | XMS_ITS | Clinical Summary ---
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
--- OUTSIDE RECORDS SUMMARY | 2024-08-23 12:34 | XMS_ITS | Patient Health Record ---
Author Organization [employer] [facility] Address [address] [place] [address] Care Team Providers Care Van Helper Name Role Phone Fidel Leonardo Primary Care Provider Allergies Allergen (clinical drug ingredient) Drug/Non Drug Allergy documented on EMR Reaction Allergy Type Onset Date Status Clinoril (uncoded) Unknown Allergy A ctive Iodine (uncoded) Unknown Allergy Act eli Reason For Referral No Information Medications Medication SIG (Take, Route, Frequency, Duration) Notes Start Date End Date Status Lisinopril-hydroCHLOROthia zide 20-12.5 MG 1/2 tablet Orally Once a day Active Social History Tobacco Use: Social History Observation Description Date Details (start date - stop date) Never Smoker NA - NA Smoker Question Answer Notes Patient is a: never smoker Alcohol Question Answer Notes How often did you have a dri nk containing alcohol in the past year? never (0 points) Did you have a drink containing alcohol in the p ast year? No Points 0 Interpretation Negative Section Notes: , semi retired , semi retired Problems Problem Type SNOMED Code ICD Code Onset Dates Problem Status W/U Status Risk Notes Problem Risk Level Moderate 3 TSL (1.3) Active confirmed Problem Essential hypertension (53632372) Essential (primary) hypertension (I10) Active confirmed Problem Enlarged prostate (392841648) Enlarged prostate without lower urinary tract symptoms (N40.0) Active confirmed Problem Obesity (387803603) Obesity, unspecified (E66.9) Active confirmed Problem Pain of right knee region (finding) (655075233986146 ) Pain in right knee (M25.561) Active confirmed Problem 97261809 Unstable gait (R26.81) Active confirmed Plan Of Treatment No Information Medical (General) History Medical History History ICD Code Arthritis HTN 11/2015 MRI Brain aging process/chronic microvasular ischemia, no acute Surgical History Surgery Date(Month/Year) L-4-5 Disc Removal (Good Results) 1974 L-5 / S-1 Disc Removal ( Failed Results ) 1991
--- OUTSIDE RECORDS SUMMARY | 2024-08-23 12:34 | XMS_ITS | Patient Health Record ---
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 Name Role Phone Milana Sauceda Primary Care Provider Unavaila Eder Vasquez Unavailable [phone] MILO MORENO Unavailable Unavailable Migration, Provider Unavailable [...] Duration) Notes Start Date End Date Status Montelukast Sodium 10 MG 1 tablet Orally Once a night for 90 days Not-Taking Vitamin D3 125 MCG (5000 UT) as directed Orally Active Aspirin 325 MG 1 tablet Orally Once a day Not-Taking Montelukast Sodium 10 MG 1 tablet Orally Once a day for 90 days 07/05/2020 Not-Taking Zinc 50 MG 1 capsule Orally Onc e a day Active cloNIDine 0.1 MG/24HR 1 patch to skin Transdermal Not-Taking Turmeric 1053 MG as directed Orally Active Tamsulosin HCl 0.4 MG 1 capsule Orally O nce a day Not-Taking Tamsulosin HCl 0.4 MG 1 capsule Orally O nce a day for 90 days 07/20/2020 Active Meclizine HCl 25 MG 1 tablet as needed Orally Once a day Not-Taking Cetirizine HCl 10 MG 1 tablet Orally Twi ce a day for 30 day(s) 04/18/2020 Not-Taking Augmentin 500-125 MG 1 tablet Orally jens ry 8 hrs for 7 day(s) 07/25/2020 Not-Taking Lisinopril 10 MG 1 tablet Orally Once a day Active Fish Oil 1000 MG 1 capsule Orally thr ee times a day Not-Taking Vitamin C 1000 MG 6 tablets Orally Onc e a day Active EPINEPHrine 0.3 MG/0.3ML as directed Inj ection once for 30 days 06/15/2020 Not-Taking Meclizine HCl 12.5 MG 2 tablets as neede d Orally every 8 hours PRN for 30 day(s) 02/21/2020 Not-Taking amLODIPine Besylate 10 MG 1 tablet Orall y Once a day for 30 day(s) Not-Taking Chlorthalidone 25 MG 1 tablet in the morning with food Orally Once a day for 30 day(s) 07/27/2020 Not-Taking Immunizations Vaccine Route Administration Date Status Comme nts Flucelvax Quadrivalent Unknown 02/28/2022 Refused Flucelvax Quadrivalent Unknown 06/06/2022 Refused Influenza, seasonal, injecta ble, preservative free, 3 yrs and above Unknown 02/02/2020 Administered Influenza, seasonal, injecta ble, preservative free, 3 yrs and above Unknown 07/05/2020 Refused Pneumovax 23 Unknown 11/24/2020 Refused Social History Tobacco Use: Social History Observation Description Date Details (start date - stop date) Never Smoker NA - NA xTobacco Use/Smoking Question Answer Notes Are you a nonsmoker Alcohol Screen (Audit-C) Question Answer Notes Did you have a drink containing alcohol in the p ast year? No Points 0 Interpretation Negative PHQ-9 Question Answer Notes Little interest or pleasure in doing things Not at all Feeling down, depressed, or hopeless Not at all Trouble falling or staying asleep, or sleeping t oo much Not at all Feeling tired or having little energy Not at all Poor appetite or overeating Not at all Feeling bad about yourself, or that you are a failure, or have let yourself or your family down Not at all Trouble concentrating on thi ngs, such as reading the newspaper or watching television Not at all Moving or speaking so slowly that other people could have noticed. Or the opposite ? being so fidgety or restless that you have been moving around a lot more than usual Not at all Thoughts that you would be b valery off , or of hurting yourself in some way Not at all Total Score 0 Problems Problem Type SNOMED Code ICD Code Onset Dates Problem Status W/U Status Risk Notes Problem 587274127 Frequency of micturition (R35.0) Active confirmed Problem 011779791409130 Benign prostatic hyperplasia with lower urinary tract symptoms (N40.1) Active confirmed Problem 515072616 Elevated PSA (R97.20) Active confirmed Problem Obstructive sleep apnea syndrome (95360745) CELIO (obstructive sleep apnea) (G47.33) Active confirmed Problem Continuous positive airway pressure ventilation treatment (44934763) CPAP (continuous positive airway pressure) dependence (Z99.89) Active confirmed Problem Sleep apnea (69560669) Sleep apnea (G47.30) Active confirmed Problem Allergic rhinitis (73202858) Chronic allergic rhinitis (J30.9) Active confirmed Problem Angioedema (29005749) Angioedema, initial encounter (T78.3XXA) Active confirmed Problem Recurrent sinusitis (459738042) Recurrent sinusitis (J32.9) Active confirmed Problem Hypertension (49155999) Hypertension (I10) Active confirmed Problem 512875785 Pre-syncope (R55) Active confirmed Encounters Encounter Location Date Provider Diagnosis Migrated_Facility 0 0 10/11/2023 Provider Migration Migrated_Facility 0 0 10/12/2023 Provider Migration Plan Of Treatment Pending Test Test Name Order Date Complement [id number] 06/26/2020 Echo Complete [id number] 02/14/2020 US Carotid Doppler Bilateral-[id number] 02/13 Holter x 48 Hour-31532 02/14/2020 Holter x 48 Hour-[id number] 02/21/2020 Holter x 24 Hour-33436 03/23/2020 Sleep study > 3 Par-[id number] 03/07/2020 Sleep study > 3 Par-[id number] 03/14/2020 Insurance Providers Payer Name Payer Address Payer Phone Subscriber Number Group Number Insured Name Patient Relationship to Insured Coverage Start Date Coverage End Date [place] [address] [place] [phone] [id number] Randall Zavala Self - patient is the insured [place] [address] [place] [address] [id number] Randall Zavala Self - patient is the insured Medical (General) History Medical History History ICD Code arthritis anemia back trouble hypertension bronchitis sleep apnea with CPAP at [facility] gout elevated PSA BPH with LUTS Surgical History Surgery Date(Month/Year) tonsils l4-l5 disk surgery l5-s1 disk surgery gallbladder removal Hospitalization History Reason Date(Month/Year) ER visit swelling in feet, then passing, chest pressure 09/03/20 ER visit severe headache, BP 220/115, ta chycardia 07/23/20 ER visit for allergic reaction 06/27/20 dizziness hyprostatic collapse
--- NOTE | 2024-08-23 14:40 | XR_ITS ---
WS: [id number] XR cervical spine 3V* [id number] REASON FOR EXAM: OR PIC, ACDF FINDINGS: Anterior plate and screw fixation with interbody fusion devices C3-C7. Surgical appliances are intact and in proper position and alignment. XR/XR cervical spine 3V* [id number] IMPRESSION: Anterior cervical fusion without abnormality.
[2024-08-23] MEDS: lactated ringers 1,000 ML 90 ML IV (14:59)
[2024-08-23] MEDS: docusate sodium 100 mg Capsule PO (17:36)
[2024-08-23] MEDS: HYDROcodone-acetaminophen 5-325 mg Tablet PO ×2 (17:36→21:00)
[2024-08-23] MEDS: tamsulosin 0.4 mg Capsule PO (20:45)
[2024-08-23] MEDS: amitriptyline 25 mg Tablet PO (20:45)
[2024-08-24] MEDS: ceFAZolin 2,000 mg SDV 2000 MG IVP ×2 (00:13→06:15)
[2024-08-24] MEDS: HYDROcodone-acetaminophen 5-325 mg Tablet PO ×2 (03:31→09:18)
[2024-08-24 04:11] VITALS: BP 157/84; PULSE 74; RESP 18; TEMP 36.6; O2SAT 94
--- NOTE | 2024-08-24 06:25 | PC.NURSE ---
Patient's Swanson catheter was removed at 0625
[2024-08-24 07:37] VITALS: BP 143/91; PULSE 82; RESP 18; TEMP 36.7; O2SAT 94
[2024-08-24] MEDS: docusate sodium 100 mg Capsule PO (09:09)
[2024-08-24] MEDS: lisinopril 10 mg Tablet PO (09:09)
--- NOTE | 2024-08-24 10:23 | PC.CHAP ---
Pastoral Care Encounter/Spiritual Assessment Type of Contact [] Declined bridge worker visit [] Patient/Family/Request visit [] Outpatient visit [] Follow-up visit [] Physician referral [] Code/Alert [x] Routine visit [] Staff referral [] Actively dying [] Patient sleeping [x] Family support [] [] Out of room [] Palliative care [] [] Receiving care in room [] Pre-surgical visit [] Trauma [] Long length of stay [] ICU visit [] Other: Relational/Emotional Strength [x] Patient feels connected with others/family/visitors/staff [] Distress [] Loneliness/isolation [] Abandonment Spirituality of Patient [x] Person of Ally [] Attends Zoroastrianism of their Ally [x] Believes in Prayer [] Reads Bible or Jehovah'S Witness materials [] There are Spiritual issues to be addressed Cut Roll Machine Operator Interventions [x] Prayer [x] Active listening [] Non-anxious presence [x] Spiritual/emotional support [] Crisis/trauma care [] Spiritual counseling [] Bereavement support [] Provided bereavement packet [] Provided Bible/devotional materials [] Provided toy/stuffed animal, coloring book to patient or family member [] Provided Communion [] Anointing/Mallie [] Salvation [x] Completed spiritual assessment [] Other: Impact on Illness or Injury [] Angry [] Fearful [] Anxious [] Often cries [] Exhaustion [] Unable to work [] Unable to attend gnosticist [] Unable to walk/stand [] Unable to read [] Unable to drive [] Unable to eat/drink [] Unable to sleep [] Unable to be with family [] Patient intubated [] Other: Summary Time spent with patient 10 min
--- NOTE | 2024-08-24 10:24 | P.DS_ITS ---
Discharge Providers Date of Admission: 08/23/24 10:10 Date of Discharge: August 24, 2024 Attending Provider at Admission: Rob Terry DO Attending Provider at Discharge: Rob Terry DO Primary Care Provider: Vanna Woodard MD Reason for Visit Reason for Visit: M48.02 Physical Exam Narrative: Patient did well for most part still having some swallowing issues. Will get DC his Hemovac drain. Urinary Catheter Management: Swanson: Cath Placed During This Visit: yes, but has since been removed by the nurse Reason for Continuing Indwelling Catheter: Other Urinary Catheter Date of Insertion: 08/23/24 Urinary Catheter Time of Insertion: 07:20 Date Urinary Catheter Removed: 08/24/24 Time Urinary Catheter Discontinued: 06:24 Discharge Data Studies Completed and Pending Completed Studies During Hospitalization Category Date Time Status XR cervical spine 3V* [id number] Routine Exams 08/23/24 14:40 Completed Radiology Impressions Cervical Spine X-Ray 08/23/24 14:40 IMPRESSION: Anterior cervical fusion without abnormality. Laboratory Results POC Glucose 161 mg/dL (70-110) H 08/23/24 10:34 Vitals Last Vital Signs Temp 98.1 F 08/24/24 07:37 Pulse 82 08/24/24 07:37 Resp 18 08/24/24 07:37 BP 143/91 08/24/24 07:37 Pulse Ox 94 08/24/24 07:37 O2 Del Method Room Air 08/24/24 07:37 O2 Flow Rate 2 08/23/24 10:55 Discharge Plan Discharge Patient Disposition: Home Condition: Stable Prescriptions: New hydrocodone-acetaminophen 5-325 mg tablet 1 - 2 tab PO .Q4-6H Qty: 40 0RF Continued (DME) bipap See Rx Instructions .Route .MEDSUPPLY Qty: 1 0RF Rx Instructions: Settings at 15/11cm Please provide supples- tubing, facemask (DME) cane See Rx Instructions .Route .MEDSUPPLY Qty: 1 0RF Rx Instructions: As directed lisinopril 10 mg tablet 10 mg PO DAILY Qty: 90 0RF amitriptyline 25 mg tablet 25 mg PO .qhs (DME) Auto-Titrating CPAP Device See Rx Instructions .Route Qty: 1 0RF Rx Instructions: 6-12 mmH2O include supplies tamsulosin 0.4 mg capsule 0.4 mg PO BID Qty: 180 0RF Discharge Orders: Discharge Order (Routine); Ordered 08/24/24 Ordered By: Rob Terry Discharge Diet: Advance as tolerated Discharge Activity: Limit activity as instructed Patient Instructions: Acute Wound Care (DC), Opioid Safety, Post Anesthesia Care Activity Restrictions/Additional Instructions: Thank you for choosing [facility] for your care! The following is a list of instructions, from your provider, to follow upon your discharge to ensure you have the optimal recovery from your recent injury or surgery. Anterior Cervical Discectomy and Fusion: What to Expect at Home Your Recovery Follow-up care is a sandoval part of your treatment and safety. Be sure to make and go to all appointments, and call your doctor if you are having problems. If you do not already have a follow-up appointment made, call office in the next 1-3 days to make follow up appointment for 2 weeks at [phone]. It is also a good idea to know your test results and keep a list of the medicines you take. You can expect your neck to feel stiff or sore after surgery. This should improve in the weeks after surgery. But it may take 4 to 6 months for you to get better completely. You may have trouble sitting or standing in one position for very long and may need pain medicine in the weeks after your surgery. It may take 4 to 6 weeks to get back to your usual activities, but it may depend on what kind of surgery you had. Your throat will feel sore and it may be difficult to swallow for the first 3 days after your surgery. As long as you can get liquids down without difficulty, this should slowly improve, otherwise call our office or seek medical attention if it becomes increasingly difficult to get anything down including liquids. Avoid hot liquids for first 3-5 days. Soothing foods/liquids such as jello, pudding, and luke warm soups are recommended until swallowing improves. Staying elevated will also help, it's advised you keep propped up at while sleeping to help reduce the swelling. You may use an ice pack directly on your incision or around it on the front of your neck, using a cloth to protect your skin; and a heating pad to the back of your neck as needed. Do not use over the counter anti-inflammatory medications (Ibuprofen, Motrin, Aleve, Advil, etc) Taking these meds after having a fusion can delay fusion rates, we recommend you avoid them for the first 3 [address] after your surgery[address] Dr. Terry may advise you to work with a physical therapist to strengthen the muscles around your neck and back - this will be discussed at your follow - up appointments. The pain or numbness you were having in your arms before surgery should get better or go away completely. This care sheet gives you a general idea about how long it will take for you to recover. But each person recovers at a different pace. Follow the steps below to get better as quickly as possible. How can you care for yourself at home? Activity ? Rest when you feel tired. Getting enough sleep will help you recover. ? Try to walk each day. Start by walking a little more than you did the day before. Bit by bit, increase the amount you walk. Walking boosts blood flow and helps prevent pneumonia and constipation. Walking may also decrease your muscle soreness after surgery. ? No lifting anything that is more that 5 pounds. This may include heavy grocery bags and milk containers, a heavy briefcase or backpack, cat litter or dog food bags, a child, or a vacuum carbon lamp cleaner. ? Avoid strenuous activities, such as bicycle riding, jogging, weightlifting, or aerobic exercise, until your doctor says it is okay. ? Do not drive until your follow-up visit after your surgery, or until your doctor says it isokay. ? Avoid taking long car trips for 2 to 4 weeks after surgery. Your neck may become tired and painful from sitting too long in one position. ? You will probably need to take 4 to 6 weeks off from work. It depends on the type of work you do and how you feel. ? You may have sex as soon as you feel able, but avoid positions that put stress on your neck or cause pain. Diet ? You can eat your normal diet. If your stomach is upset, try bland, low-fat foods like plain rice, broiled chicken, toast, and yogurt ? Drink plenty of fluids. If you have kidney, heart, or liver disease and have to limit fluids, talk with your doctor before you increase the amount of fluids you drink. ? You may notice that your bowel movements are not regular right after your surgery. This is common. Try to avoid constipation and straining with bowel movements. You may want to take a fiber supplement every day. If you have not had a bowel movement after a couple of days, ask your doctor about taking a mild laxative. Medicines ? Take pain medicines exactly as directed. 1. If Dr. Terry gave you a prescription medicine for pain, take lt as prescribed. 2. Do not take two or more pain medicines at the same time unless the doctor told you to. Many pain medicines have acetaminophen, which is Tylenol. Too much acetaminophen {Tylenol) can be harmful. 3. If you think your pain pill is making you sick to your stomach: 4. Take your pills after meals (unless your doctor has told you not to). 5. Ask your Dr. for a different pain pill. Incisioncare ? Remove your dressing 48hours after your surgery. Ok to shower and get the incision wet. Do not overtly wash your incision. When done, pad dry, leave open to air thereafter. Avoid creams and ointments directly on your incision. ? Your sutures in the incision will dissolve and fall out on their own. ? Keep the area clean and dry. You may cover it with a gauze bandage if it weeps or rubs against clothing; if you choose to do this, change the dressing everyday. Other instructions ? Use a heating pad, hot water bottle, or gentle massage on your back to reduce stiffness. Avoid putting heat on your incision When should you call for help? ? Call 911 anytime you think you may need emergency care. For example, call if: ? You pass out (lose consciousness). ? You have sudden chest pain and shortness of breath, or you cough upblood. ? You cannot swallow. ? You have severe pain in your neck or back. ? Call your Dr. or seek immediate medical care if: ? You have pain that does not get better after you take pain pills. ? You have loose stitches, or your incision comes open. ? You have blood or fluid draining from the incision. ? You have signs of infection, such as: 1. Increased pain, swelling, warmth, or redness. 2. Red streaks leading from the site. 3. Pus draining from the site. 4. Swollen lymph nodes in your neck or armpits. 5. A fever. ? You have severe pain in your arms. ? You have new or increased weakness or numbness in your arms. ? Watch closely for any changes in your health, and be sure to contact your doctor if: ? You do not have a bowel movement after taking a laxative. Discharge Attestations Time Spent in Discharge Care*: less than 30 min Quality Metrics Clinical Quality Measures [ No reported AMI, CVA or VTE this stay] Coding Level of Care Code Acute Code for Chg Fwd
[2024-08-24 11:07] VITALS: BP 143/91; PULSE 82; RESP 18; TEMP 36.7; O2SAT 94
[2024-08-24 11:32] VITALS: BP 152/82; PULSE 79; RESP 17; TEMP 36.6; O2SAT 96
== END 2024-08-24 13:38 | disposition home or self-care (01) | DRG 472 ==
LOC: MEDSURG 10:31
PROVIDERS: Admitting Provider Orthopaedic Surgery; PCP Family Medicine; Visit Provider Orthopaedic Surgery
PROC: 0RB30ZZ Excision of Cervical Vertebral Disc, Open Approach (ICD-10-PCS; CPT 22551; principal; 2024-08-23 07:00)
DX: M48.02 Spinal stenosis, cervical region (principal); G99.2 Myelopathy in diseases classified elsewhere; I10 Essential (primary) hypertension; R42 Dizziness and giddiness; G93.89 Other specified disorders of brain; I45.10 Unspecified right bundle-branch block; N40.0 Benign prostatic hyperplasia without lower urinary tract symptoms; Z98.1 Arthrodesis status
CPT/HCPCS: 36416; 51702; 72040; 76000; 82962; 97110; 97116; 97161; 97530; C1713; C1763; C9359; J0131; J0330; J0690; J1100; J1171; J1200; J2250; J2371; J2405; J2704; J3010; J3490; J7030; J7120; J9999

== ENCOUNTER 2024-08-26 13:12 | Emergency (ER) | payer MEDICARE, BC, SELFPAY ==
[2024-08-26 13:26] VITALS: BP 144/85; PULSE 97; RESP 17; TEMP 36.7; O2SAT 95; BMI 34.9
[2024-08-26 14:37] VITALS: BP 154/81; PULSE 92; RESP 16; O2SAT 96
--- NOTE | 2024-08-26 15:07 | W.ED.NECK ---
HPI - Neck Pain/Injury General: Chief Complaint: Neck Pain/Injury Stated Complaint: swelling in surgery sight in neck Time Seen by Provider: 08/26/24 14:33 Source: patient and family Mode of arrival: ambulatory Limitations: no limitations History of Present Illness: Patient is a 74-year-old male presenting to the ED 3 days postop from anterior cervical discectomy and fusion with surgical site swelling. He reports minor swelling the last 2 days and significantly worsened upon waking this morning. He has been using cold therapy and hydrocodone for pain management. Reports subjective fever/chills-afebrile here today. He denies any purulent or malodorous drainage. He denies any use of blood thinners. He is able to eat/drink/swallow medications. No trouble breathing/swallowing. MD complaint: other (swelling to surgical site) Place: home Severity: moderate Relieving factors: cold therapy and medication OTC/prescribed Exacerbating factors: swallowing Context: other (Recent surgery) Associated symptoms: Reports fevers/chills; Denies dysphagia, dizziness, headache(s) or nausea Treatments prior to arrival: prescription analgesic, cold therapy and cervical collar Related Data Home Medications ?Medication ?Instructions ?Recorded ?Confirmed amitriptyline 25 mg tablet 25 mg PO .qhs 05/26/24 08/19/24 Previous Rx's ?Medication ?Instructions ?Recorded CPAP (Auto-Titrating CPAP) #1 ea 06/27/23 bipap #1 ea 10/07/23 cane #1 ea 10/07/23 lisinopril 10 mg tablet 10 mg PO DAILY #90 tabs 03/10/24 tamsulosin 0.4 mg capsule 0.4 mg PO BID #180 caps 08/09/24 hydrocodone 5 mg-acetaminophen 325 1 - 2 tab PO .Q4-6H #40 tabs 08/24/24 mg tablet sulfamethoxazole 800 1 tab PO BID 7 days #14 tabs 08/26/24 mg-trimethoprim 160 mg tablet (Bactrim DS) Allergies Allergy/AdvReac Type Severity Reaction Status Date / Time ciprofloxacin (From Cipro) Allergy Intermediate Vomiting Verified 08/03/24 16:28 celecoxib (From Celebrex) Allergy ADR/ALGY-Hy Verified 08/03/24 16:28 potension Iodinated Contrast Media Allergy Vomiting Verified 08/03/24 16:28 meloxicam (From Mobic) Allergy ADR-Hyperte Verified 08/03/24 16:28 nsion Review of Systems Const: Reports: fever(s) (subjective) and chills; Denies: body aches Eyes: Denies: change in vision ENMT: Reports: throat pain and odynophagia (but able to swallow liquid, food, meds) Card: Denies: chest pain or palpitations Resp: Denies: dyspnea or productive cough GI: Denies: abdominal pain, nausea, vomiting or dysphagia Musc: Reports: neck pain; Denies: back pain, extremity pain, extremity swelling or joint swelling Skin/Breast: Denies: rash Neuro: Denies: headache(s), numbness in extremities, weakness in extremities, sensory changes or dizziness PFSH ED PFSH: Medical History BPH (benign prostatic hyperplasia) Surgical History Status post carpal tunnel release History of tonsillectomy History of rhinoplasty deviated septum History of lumbar surgery x 2; L4/5 & L5/S1 History of cholecystectomy Family History Mother Lung cancer smoker Father CAD (coronary artery disease) Social History Smoking and tobacco/nicotine status: unknown if used tobacco/nicotine Alcohol intake: never Substance/Drug Use: never Lives independently: Yes Household members: spouse Marital status: Marital status details: in 2003 Highest education level completed: Other Doctoral Degree 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Anabaptism: Buddhism Agree to transfusion: No Physical Exam Const: COMMON NORMALS: no acute distress, average body habitus, patient oriented x3, no limitations, alert and well nourished NUTRITIONAL APPEARANCE: obese ORIENTATION/CONSCIOUSNESS: Yes awake, Yes oriented to person, Yes oriented to place and Yes oriented to time HENMT: COMMON NORMALS: normocephalic and atraumatic HEAD & SCALP: normal to inspection, normocephalic and atraumatic FACE & SINUS: normal facial exam THROAT: posterior oropharynx normal and tonsils normal Eye: COMMON NORMALS: Equal, round and reactive pupils present, EOMs intact bilaterally and conjunctivae normal GENERAL EYE: appearance normal, both eyes and all related structures and normal light reflex CONJUNCTIVA: Yes conjunctivae normal PUPIL: Yes Equal, round and reactive pupils present DIRECT OPHTHALMOSCOPY: Yes normal light reflex Neck/C-Spine: COMMON NORMALS: no lymphadenopathy, no JVD and No carotid bruits; negative for no meningeal signs GENERAL: Yes trachea midline and Yes anterior neck swelling OTHER: ROM not tested due to recent surgery; he has intact surgical incision to anterior neck with steri strips; there is no drainage from incision; he does have a large area of edema/most likely post op seroma; mild overlying erythema/warmth Chest: COMMONS NORMALS: normal inspection of the chest and normal palpation of entire chest wall Resp: COMMON NORMALS: normal respiratory effort, No retractions, No use of accessory muscles and clear to auscultation bilaterally AUSCULTATION: clear to auscultation bilaterally Cardio: COMMON NORMALS: no JVD, regular rate, regular rhythm, S1 normal heart sound present and S2 normal heart sound present RATE: regular rate RHYTHM: regular rhythm HEART SOUNDS: S1 normal heart sound present and S2 normal heart sound present Neuro: BENY COMA SCALE: document GCS findings Beny coma scale eye opening: Spontaneous Beny coma scale verbal response: Orientated Eagle coma scale motor response: Obey commands Eagle coma scale total score: 15 COMMON NORMALS: patient oriented x3, CN's II-XII intact bilaterally, moves all extremities, no focal motor deficits, no sensory deficits noted and gait normal SENSORIUM/ORIENTATION: Yes alert, Yes oriented to person, Yes oriented to place and Yes oriented to time MENINGEAL SIGNS: No no meningeal signs Course Consultations: Consultation #1: Dr. 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 exchange operator; reviewed graphic images of patient's incision/edema; stated if he can eat/drink/swallow meds then there is no reason for evaluation of hematoma/seroma; not concerned for developing infection; will see patient in office tomorrow morning Vital Signs: Vital signs: Vital Signs Temperature 98.0 F 08/26/24 13:26 Pulse Rate 92 08/26/24 14:37 Respiratory Rate 16 08/26/24 14:37 Blood Pressure 154/81 08/26/24 14:37 Pulse Oximetry 96 08/26/24 14:37 Oxygen Delivery Me thod Room Air 08/26/24 13:26 MDM - Neck Pain/Injury Medical Decision Making Patient is a nice 74-year-old male 3 days postop from an anterior approach discectomy/fusion by Dr. Terry. His main concern today is edema that seem to acutely worsen over the past 24 hours. He is able to eat, drink, swallow medications. He is not complaining of any difficulty breathing or controlling secretions. Vital signs are stable upon arrival. He does have a significant most likely seroma formation under his anterior incision. There is no drainage. Mild amount of overlying erythema and warmth. Case and images of patient's presentation discussed/reviewed with Dr. Terry. He did not feel there was any benefit to CT imaging. Blood work overall unlikely to private branch exchange operator as we would expect some degree of leukocytosis and elevated inflammatory markers given recent surgery. He is graciously willing to see patient tomorrow morning in his office for reevaluation. He did discuss placing him on Bactrim for possible superficial cellulitis. Return precautions discussed otherwise we will have him see his surgeon in the morning. Medical Records I reviewed the patient's medical records. No radiology studies performed this visit Discharge Plan Discharge Patient Disposition: Home Clinical Impression: Seroma after procedure Condition: Stable Prescriptions: New sulfamethoxazole-trimethoprim [Bactrim DS] 800-160 mg tablet 1 tab PO BID 7 Days Qty: 14 0RF No Action (DME) bipap See Rx Instructions .Route .MEDSUPPLY Qty: 1 0RF Rx Instructions: Settings at 15/11cm Please provide supples- tubing, facemask (DME) cane See Rx Instructions .Route .MEDSUPPLY Qty: 1 0RF Rx Instructions: As directed lisinopril 10 mg tablet 10 mg PO DAILY Qty: 90 0RF amitriptyline 25 mg tablet 25 mg PO .qhs (DME) Auto-Titrating CPAP Device See Rx Instructions .Route Qty: 1 0RF Rx Instructions: 6-12 mmH2O include supplies tamsulosin 0.4 mg capsule 0.4 mg PO BID Qty: 180 0RF hydrocodone-acetaminophen 5-325 mg tablet 1 - 2 tab PO .Q4-6H Qty: 40 0RF Discharge Orders: Discharge ED (Routine); Ordered 08/26/24 Ordered By: Vianca Scott Referrals: Rob Terry DO [Physician, Orthopedics] Vanna Woodard MD [Primary Care Provider, Family Practice] Activity Restrictions/Additional Instructions: As we discussed, you have an appointment to see Dr. Terry tomorrow at 8:30 AM at his office for re-evaluation. Please show up early to this appointment at 8 AM as he is going to see you before/during operating room cases. Print Language: Yakut Coding Level of Care Code ED Doubling Machine Operator for Carole Trujillo
--- NOTE | 2024-08-26 15:45 | PC.NURSE ---
Morphine/ zofran ordered for patient. Pt declined and states, I will just take my Hydrocodone that Dr Terry gave me. Pt brought his Hydrocodone/ apap 5-325. Vianca Scott professor of journalism notified and pt okay to take his home med.
[2024-08-26 16:12] VITALS: BP 140/84; PULSE 93; O2SAT 94
== END 2024-08-26 16:39 | disposition home or self-care (01) ==
PROVIDERS: Emergency Provider Physician Assistant; PCP Family Medicine
DX: M96.842 Postprocedural seroma of a musculoskeletal structure following a musculoskeletal system procedure (principal); M43.22 Fusion of spine, cervical region
CPT/HCPCS: 99283

== ENCOUNTER → 2024-08-27 08:15 | Outpatient (BNVA) | payer MEDICARE, BC, SELFPAY | PROVIDERS: PCP Family Medicine; Visit Provider Orthopaedic Surgery | DX: Z98.1 Arthrodesis status (principal) | CPT/HCPCS: 99024 ==

== ENCOUNTER 2024-08-28 14:23 | Emergency (ER) | payer MEDICARE, BC, SELFPAY ==
[2024-08-28 14:30] VITALS: BP 162/108; PULSE 130; RESP 18; TEMP 36.6; O2SAT 98
--- NOTE | 2024-08-28 15:01 | W.ED.MALEGU ---
HPI - Male Genitourinary General: Chief complaint: Urogenital-Male Stated complaint: cant urinate Time Seen by Provider: 08/28/24 14:36 Source: patient Mode of arrival: ambulatory Limitations: no limitations History of Present Illness: 74-year-old male who had cervical surgery on Friday states he is not really been able to urinate much since send besides a dribble is having extreme pain over his bladder rates pain a 9 out of 10 denies any vomiting denies any fever Associated symptoms: Deny nausea or vomiting Related Data Home Medications ?Medication ?Instructions ?Recorded ?Confirmed amitriptyline 25 mg tablet 25 mg PO .qhs 05/26/24 08/27/24 Previous Rx's ?Medication ?Instructions ?Recorded CPAP (Auto-Titrating CPAP) #1 ea 06/27/23 bipap #1 ea 10/07/23 cane #1 ea 10/07/23 lisinopril 10 mg tablet 10 mg PO DAILY #90 tabs 03/10/24 tamsulosin 0.4 mg capsule 0.4 mg PO BID #180 caps 08/09/24 hydrocodone 5 mg-acetaminophen 325 1 - 2 tab PO .Q4-6H #40 tabs 08/24/24 mg tablet sulfamethoxazole 800 1 tab PO BID 7 days #14 tabs 08/26/24 mg-trimethoprim 160 mg tablet (Bactrim DS) Allergies Allergy/AdvReac Type Severity Reaction Status Date / Time ciprofloxacin (From Cipro) Allergy Intermediate Vomiting Verified 08/27/24 07:33 celecoxib (From Celebrex) Allergy ADR/ALGY-Hy Verified 08/27/24 07:33 potension Iodinated Contrast Media Allergy Vomiting Verified 08/27/24 07:33 meloxicam (From Mobic) Allergy ADR-Hyperte Verified 08/27/24 07:33 nsion Review of Systems Const: Denies: fever(s), chills, body aches or change in appetite ENMT: Denies: throat pain or dental pain Card: Denies: chest pain Resp: Denies: dyspnea GI: Reports: abdominal pain; Denies: nausea, vomiting or diarrhea : Reports: difficulty urinating Musc: Denies: neck pain or back pain Skin/Breast: Denies: rash Neuro: Denies: headache(s) PFS ED PFSH: Medical History BPH (benign prostatic hyperplasia) Surgical History Status post carpal tunnel release History of tonsillectomy History of rhinoplasty deviated septum History of lumbar surgery x 2; L4/5 & L5/S1 History of cholecystectomy Family History Mother Lung cancer smoker Father CAD (coronary artery disease) Social History Smoking and tobacco/nicotine status: unknown if used tobacco/nicotine Alcohol intake: never Substance/Drug Use: never Lives independently: Yes Household members: spouse Marital status: Marital status details: in 2003 Highest education level completed: Other Doctoral Degree 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 Agree to transfusion: No Physical Exam Const: COMMON NORMALS: no acute distress, patient oriented x3 and healthy appearing HENMT: COMMON NORMALS: normocephalic and atraumatic HEAD & SCALP: normocephalic and atraumatic Eye: COMMON NORMALS: conjunctivae normal CONJUNCTIVA: Yes conjunctivae normal Neck/C-Spine: COMMON NORMALS: full ROM and supple Chest: COMMONS NORMALS: normal inspection of the chest Resp: COMMON NORMALS: normal respiratory effort, No retractions, No use of accessory muscles and clear to auscultation bilaterally AUSCULTATION: clear to auscultation bilaterally Cardio: COMMON NORMALS: regular rate, regular rhythm and No murmurs present (Cardio) RATE: regular rate RHYTHM: regular rhythm GI: COMMON NORMALS: Normal to inspection, nondistended, normoactive bowel sounds present, Soft to palpation and no masses PALPATION: Yes Soft to palpation OTHER: tenderness over bladder Extremity: COMMON NORMALS: normal to inspection and full ROM Neuro: COMMON NORMALS: patient oriented x3, moves all extremities and no focal motor deficits Psych: COMMON NORMALS: mental status grossly normal, Normal thought process present and cooperative THOUGHT PROCESS: Normal thought process present Skin: COMMON NORMALS: no rashes or lesions noted and no wounds GENERAL SKIN EXAM: no rashes or lesions noted Course Vital Signs: Vital signs: Vital Signs Temperature 97.8 F 08/28/24 14:30 Pulse Rate 75 08/28/24 15:15 Respiratory Rate 18 08/28/24 14:30 Blood Pressure 146/86 08/28/24 15:15 Pulse Oximetry 100 08/28/24 15:15 Oxygen Delivery Me thod Room Air 08/28/24 15:15 MDM - Male Medical Decision Making Patient presents here with urinary retention he feels much improved after Sw[place] was placed and a large amount of urine out no signs UTI he stable for discharge follow-up with PCP return if worsening. Medical Records I reviewed the patient's medical records. Lab Data I reviewed the patient's lab results. Laboratory Results Urine Color Yellow (Yellow) 08/28/24 15:10 Urine Appearance Clear (CLEAR) 08/28/24 15:10 Urine pH 5.5 (5-7) 08/28/24 15:10 Ur Specific [place] 1.020 (1.005-1.030) 08/28/24 15:10 Urine Protein Negative (Negative) 08/28/24 15:10 Urine Glucose (UA) Negative (Normal) 08/28/24 15:10 Urine Ketones Trace (Negative) 08/28/24 15:10 Urine Blood Negative (Negative) 08/28/24 15:10 Urine Nitrate Negative (Negative) 08/28/24 15:10 Urine Bilirubin Negative (Negative) 08/28/24 15:10 Urine Urobilinogen 0.2 mg/dL (Negative) 08/28/24 15:10 Ur Leukocyte Esterase Negative (Negative) 08/28/24 15:10 Amorphous Sediment Not Reportable 08/28/24 15:10 No radiology studies performed this visit Discharge Plan Discharge Patient Disposition: Home Clinical Impression: Acute urinary retention Condition: Stable Prescriptions: No Action (DME) bipap See Rx Instructions .Route .MEDSUPPLY Qty: 1 0RF Rx Instructions: Settings at 15/11cm Please provide supples- tubing, facemask (DME) cane See Rx Instructions .Route .MEDSUPPLY Qty: 1 0RF Rx Instructions: As directed lisinopril 10 mg tablet 10 mg PO DAILY Qty: 90 0RF amitriptyline 25 mg tablet 25 mg PO .qhs (DME) Auto-Titrating CPAP Device See Rx Instructions .Route Qty: 1 0RF Rx Instructions: 6-12 mmH2O include supplies tamsulosin 0.4 mg capsule 0.4 mg PO BID Qty: 180 0RF sulfamethoxazole-trimethoprim [Bactrim DS] 800-160 mg tablet 1 tab PO BID 7 Days Qty: 14 0RF hydrocodone-acetaminophen 5-325 mg tablet 1 - 2 tab PO .Q4-6H Qty: 40 0RF Discharge Orders: Discharge ED (Routine); Ordered 08/28/24 Ordered By: Patience Mendoza Referrals: Vanna Woodard MD [Primary Care Provider, [facility]] - 4-7 days Discharge Diet: Advance as tolerated Discharge Activity: Resume usual activity Patient Instructions: Urinary Retention in Men (ED) Print Language: Turkmen Coding Level of Care Code ED Senior Mainframe Developer for Carole Trujillo
[2024-08-28 15:15] VITALS: BP 146/86; PULSE 75; O2SAT 100
--- NOTE | 2024-08-28 15:18 | PC.NURSE ---
600 urine out with cath.
[2024-08-28 15:22] LABS: Bilirubin Urine Negative (Negative); Blood Urine Negative (Negative); Glucose Urine UA Negative (Normal); Ketones Urine Trace (Negative); Leukocyte Esterase Urine Negative (Negative); Nitrate Urine Negative (Negative); Protein Urine Negative (Negative); Urine Appearance Clear (CLEAR); Urine Color Yellow (Yellow); Urobilinogen Urine 0.2 mg/dL (Negative); pH Urine 5.5 (5-7)
[2024-08-28 15:26] LABS: Add Urine Microscopic? YES; Bacteria Urine None Seen /hpf; Hyaline Casts Urine 0-4 /lpf; RBC Urine 0-2 /hpf (0-2); Squamous Epithelial Cell Urine 0-5 /hpf (0-5); WBC Urine 0-5 /hpf (0-5)
[2024-08-28 15:30] VITALS: PULSE 104; O2SAT 100
[2024-08-28 15:48] VITALS: BP 132/102; PULSE 100; O2SAT 94
--- NOTE | 2024-08-30 08:39 | DCPLANNER ---
faxed referral packet to [facility]
== END 2024-08-28 15:49 | disposition home or self-care (01) ==
PROVIDERS: Emergency Provider Emergency Medicine; PCP Family Medicine
DX: R33.8 Other retention of urine (principal); Z98.890 Other specified postprocedural states
CPT/HCPCS: 51702; 81001; 99283

== ENCOUNTER → 2024-09-07 10:29 | Outpatient (BNVA) | payer MEDICARE, BC, SELFPAY | PROVIDERS: PCP Family Medicine; Visit Provider Orthopaedic Surgery | DX: Z98.1 Arthrodesis status (principal) | CPT/HCPCS: 72040; 99024 ==

== ENCOUNTER 2024-09-08 00:30 | Emergency (ER) | payer MEDICARE, BC, SELFPAY ==
[2024-09-08 00:37] VITALS: BP 158/87; PULSE 101; RESP 18; TEMP 36.3; O2SAT 97
[2024-09-08 01:12] LABS: Basophils # 0.1 10^3/uL (0.0-0.1); Basophils % 0.9 %; Eosinophils # 0.2 10^3/uL (0.0-0.8); Eosinophils % 1.7 %; Hematocrit 36.7 % (37-53); Lymphocytes # 1.9 10^3/uL (0.8-4.8); Lymphocytes % 16.2 %; Mean Corpuscular HGB Conc 33.2 g/dL (30-55); Mean Corpuscular Hemoglobin 29.2 pg (27-33); Mean Corpuscular Volume 87.8 fl (82-101); Mean Platelet Volume 9.1 fL (7.4-10.4); Monocytes # 0.6 10^3/uL (0.2-0.9); Monocytes % 5.4 %; Neutrophils # 8.46 10^3/uL (1.8-7.7); Neutrophils % 73.9 %; Nucleated Red Blood Cells % 0 %; Platelet Count 340 10^3/cmm (157-399); Red Blood Count 4.18 10^6/uL (3.85-5.65); Red Cell Distribution Width 13.4 % (12.1-15.1); White Blood Count 11.44 10^3/uL (3.29-11.43)
[2024-09-08 01:15] VITALS: BP 143/81; PULSE 82; RESP 16; O2SAT 94
[2024-09-08 01:27] LABS: Alanine Aminotransferase 49 U/L (0-41); Albumin Level 4.3 g/dL (3.5-5.2); Alkaline Phosphatase 76 U/L (40-130); Anion Gap 16.8 (5-19); Aspartate Amino Transferase 26 U/L (0-40); Blood Urea Nitrogen 18 mg/dL (8-23); Calcium 9.8 mg/dL (8.5-10.5); Carbon Dioxide 25 mmol/L (22-29); Chloride 98 mmol/L (98-107); Creatinine Clr Calc Pharmacy 105.5259; Globulin 3.3 g/dL (1.3-4.6); Glucose 128 mg/dL (65-115); Osmolality Calculated 286 mOsm/kg (285-295); Potassium 3.8 mmol/L (3.5-5.1); Sodium 136 mmol/L (136-145); Total Bilirubin 0.3 mg/dL (0.15-1.2); Total Protein 7.6 g/dL (6.6-8.7)
--- NOTE | 2024-09-08 02:25 | W.ED.GENADLT ---
HPI - General Adult General: Chief complaint: General Medical Stated complaint: Gi Bleed Spitting up blood Time Seen by Provider: 09/08/24 01:04 History of Present Illness: Randall Zavala, a male patient with a history of recent prostate surgery and spinal cord impingement, presents to the emergency department with acute onset of heart palpitations, throat burning, and coughing up bloody mucus. The patient reports that his symptoms began suddenly, with his heart starting to pound, his throat burning, and his mouth feeling like someone poured acid in it. He also experienced coughing up bloody mucus. These symptoms have improved since arrival at the ER, with no further episodes of coughing up mucus noted. The patient continues to experience some burning in his throat. Mr. Zavala underwent prostate surgery on August 23, approximately two weeks ago. He reports recent complications with urination following catheter removal. The patient describes urgency to urinate but difficulty voiding completely, stating, When I try to pee, not much comes out, and when I'm done, I feel like I haven't gone. He mentions a recent incident where the catheter had come partly out and started burning, which has since improved. The patient also discloses a history of an allergic reaction to meloxicam, which resulted in a previous ER visit with severely elevated blood pressure (300/150) and near loss of consciousness. He was subsequently diagnosed with an NSAID allergy and switched to Celebrex. Mr. Zavala reports taking Tums for his current symptoms without relief. He is currently taking hydrocodone, which he questions as a possible cause of his symptoms. The patient also mentions being on medication related to his prostate surgery, which was for benign prostatic hyperplasia, not cancer. Related Data Home Medications ?Medication ?Instructions ?Recorded ?Confirmed amitriptyline 25 mg tablet 25 mg PO .qhs 05/26/24 09/07/24 Previous Rx's ?Medication ?Instructions ?Recorded CPAP (Auto-Titrating CPAP) #1 ea 06/27/23 bipap #1 ea 10/07/23 cane #1 ea 10/07/23 lisinopril 10 mg tablet 10 mg PO DAILY #90 tabs 03/10/24 tamsulosin 0.4 mg capsule 0.4 mg PO BID #180 caps 08/09/24 hydrocodone 5 mg-acetaminophen 325 1 tab PO .Q4-6H PRN Pain 7 days 09/03/24 mg tablet #42 tabs lift recliner #1 ea 09/07/24 omeprazole 40 mg capsule,delayed 40 mg PO DAILY 8 weeks #60 caps 09/08/24 release Allergies Allergy/AdvReac Type Severity Reaction Status Date / Time ciprofloxacin (From Cipro) Allergy Intermediate Vomiting Verified 09/08/24 00:41 celecoxib (From Celebrex) Allergy ADR/ALGY-Hy Verified 09/08/24 00:41 potension Iodinated Contrast Media Allergy Vomiting Verified 09/08/24 00:41 meloxicam (From Mobic) Allergy ADR-Hyperte Verified 09/08/24 00:41 nsion Review of Systems General: Reports: 10 or more systems reviewed and unremarkable except in HPI and below PFSH ED PFSH: Medical History BPH (benign prostatic hyperplasia) Surgical History Status post carpal tunnel release History of tonsillectomy History of rhinoplasty deviated septum History of lumbar surgery x 2; L4/5 & L5/S1 History of cholecystectomy Family History Mother Lung cancer smoker Father CAD (coronary artery disease) Social History Smoking and tobacco/nicotine status: unknown if used tobacco/nicotine Alcohol intake: never Substance/Drug Use: never Lives independently: Yes Household members: spouse Marital status: Marital status details: in 2003 Highest education level completed: Other Doctoral Degree 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Church: Confucianist Agree to transfusion: No Physical Exam Const: COMMON NORMALS: no acute distress, patient oriented x3, healthy appearing, alert and well nourished HENMT: COMMON NORMALS: normocephalic HEAD & SCALP: normocephalic MOUTH: Normal oral and palatal mucosa present THROAT: posterior oropharynx normal Eye: COMMON NORMALS: EOMs intact bilaterally Neck/C-Spine: COMMON NORMALS: full ROM and supple Resp: COMMON NORMALS: normal respiratory effort, No retractions and clear to auscultation bilaterally AUSCULTATION: clear to auscultation bilaterally Cardio: COMMON NORMALS: regular rate, regular rhythm, No gallops present (Cardio) and No murmurs present (Cardio) RATE: regular rate RHYTHM: regular rhythm GI: COMMON NORMALS: Soft to palpation and non-tender PALPATION: Yes Soft to palpation Extremity: GENERAL: Yes normal exam except as noted Neuro: COMMON NORMALS: patient oriented x3 SENSORIUM/ORIENTATION: Yes alert Skin: COMMON NORMALS: no rashes or lesions noted GENERAL SKIN EXAM: no rashes or lesions noted Course Vital Signs: Vital signs: Vital Signs Temperature 97.4 F L 09/08/24 00:37 Pulse Rate 82 09/08/24 01:15 Respiratory Rate 16 09/08/24 01:15 Blood Pressure 143/81 09/08/24 01:15 Pulse Oximetry 94 09/08/24 01:15 Oxygen Delivery Me thod Room Air 09/08/24 00:37 MDM - General Adult Medical Decision Making 74-year-old male presents to the emergency department for evaluation of frothy bloody hemoptysis. Patient had 1 episode that had not returned after presenting to the emergency department. Globally the patient's exam, vital signs, and laboratory evaluation are normal. Patient's history most consistent with acid reflux. Started patient on omeprazole. Provided him pantoprazole prior to leaving the emergency department. Encouraged him to follow-up with his primary care physician for further management. Return precautions were discussed and the patient was discharged home in stable condition. Lab Data 09/08/24 00:51 09/08/24 00:51 Laboratory Results WBC 11.44 10^3/uL (3.29-11.43) H 09/08/24 00:51 RBC 4.18 10^6/uL (3.85-5.65) 09/08/24 00:51 Hgb 12.20 g/dL (11.27-16.99) 09/08/24 00:51 Hct 36.7 % (37-53) L 09/08/24 00:51 MCV 87.8 fl (82-101) 09/08/24 00:51 MCH 29.2 pg (27-33) 09/08/24 00:51 MCHC 33.2 g/dL (30-55) 09/08/24 00:51 RDW 13.4 % (12.1-15.1) 09/08/24 00:51 Plt Count 340 10^3/cmm (157-399) 09/08/24 00:51 MPV 9.1 fL (7.4-10.4) 09/08/24 00:51 Neut % (Auto) 73.9 % 09/08/24 00:51 Lymph % (Auto) 16.2 % 09/08/24 00:51 [place] % (Auto) 5.4 % 09/08/24 00:51 Eos % (Auto) 1.7 % 09/08/24 00:51 Baso % (Auto) 0.9 % 09/08/24 00:51 Neut # (Auto) 8.46 10^3/uL (1.8-7.7) H 09/08/24 00:51 Lymph # (Auto) 1.9 10^3/uL (0.8-4.8) 09/08/24 00:51 [place] # (Auto) 0.6 10^3/uL (0.2-0.9) 09/08/24 00:51 Eos # (Auto) 0.2 10^3/uL (0.0-0.8) 09/08/24 00:51 Baso # (Auto) 0.1 10^3/uL (0.0-0.1) 09/08/24 00:51 Nucleated RBC % (auto) 0 % 09/08/24 00:51 Nucleated RBCs # 0.0 /100WBC 09/08/24 00:51 Sodium 136 mmol/L (136-145) 09/08/24 00:51 Potassium 3.8 mmol/L (3.5-5.1) 09/08/24 00:51 Chloride 98 mmol/L (98-107) 09/08/24 00:51 Carbon Dioxide 25 mmol/L (22-29) 09/08/24 00:51 Anion Gap 16.8 (5-19) 09/08/24 00:51 BUN 18 mg/dL (8-23) 09/08/24 00:51 Creatinine 0.8 mg/dL (0.7-1.2) 09/08/24 00:51 GFR Calculation Not Reportable 09/08/24 00:51 Glucose 128 mg/dL (65-115) H 09/08/24 00:51 Calculated Osmolality 286 mOsm/kg (285-295) 09/08/24 00:51 Calcium 9.8 mg/dL (8.5-10.5) 09/08/24 00:51 Total Bilirubin 0.3 mg/dL (0.15-1.2) 09/08/24 00:51 AST 26 U/L (0-40) 09/08/24 00:51 ALT 49 U/L (0-41) H 09/08/24 00:51 Alkaline Phosphatase 76 U/L (40-130) 09/08/24 00:51 Total Protein 7.6 g/dL (6.6-8.7) 09/08/24 00:51 Albumin 4.3 g/dL (3.5-5.2) 09/08/24 00:51 Globulin 3.3 g/dL (1.3-4.6) 09/08/24 00:51 No radiology studies performed this visit Discharge Plan Discharge Patient Disposition: Home Clinical Impression: Chronic gastroesophageal reflux disease without esophagitis Condition: Stable Prescriptions: New omeprazole 40 mg capsule,delayed release(DR/EC) 40 mg PO DAILY 56 Days Qty: 60 0RF No Action (DME) lift recliner See Rx Instructions .Route .MEDSUPPLY Qty: 1 0RF Rx Instructions: As directed. Order 99 days (DME) bipap See Rx Instructions .Route .MEDSUPPLY Qty: 1 0RF Rx Instructions: Settings at 15/11cm Please provide supples- tubing, facemask (DME) cane See Rx Instructions .Route .MEDSUPPLY Qty: 1 0RF Rx Instructions: As directed lisinopril 10 mg tablet 10 mg PO DAILY Qty: 90 0RF amitriptyline 25 mg tablet 25 mg PO .qhs (DME) Auto-Titrating CPAP Device See Rx Instructions .Route Qty: 1 0RF Rx Instructions: 6-12 mmH2O include supplies tamsulosin 0.4 mg capsule 0.4 mg PO BID Qty: 180 0RF hydrocodone-acetaminophen 5-325 mg tablet 1 tab PO .Q4-6H PRN (Reason: Pain) 7 Days Qty: 42 0RF Discharge Orders: Discharge ED (Routine); Ordered 09/08/24 Ordered By: Jose Roberto Murray Referrals: Vanna Woodard MD [Primary Care Provider, Family Practice] Discharge Diet: Advance as tolerated Discharge Activity: Resume usual activity Patient Instructions: Opioid Safety, Pain Management Activity Restrictions/Additional Instructions: Please start taking the omeprazole in the morning. Follow-up with your primary care physician for further management of GERD. 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
[2024-09-08 02:28] VITALS: BP 144/82; PULSE 80; RESP 16; O2SAT 95
[2024-09-08] MEDS: pantoprazole DR 40 mg Tablet PO (02:31)
== END 2024-09-08 02:34 | disposition home or self-care (01) ==
PROVIDERS: Emergency Provider General Practice; PCP Family Medicine
DX: K21.9 Gastro-esophageal reflux disease without esophagitis (principal)
CPT/HCPCS: 36415; 80053; 85025; 99283; J9999

== ENCOUNTER 2024-09-08 04:45 | Emergency (ER) | payer MEDICARE, BC, SELFPAY ==
[2024-09-08 04:49] VITALS: BP 202/117; PULSE 101; RESP 18; TEMP 36.7; O2SAT 95; BMI 34.8
--- NOTE | 2024-09-08 04:56 | W.ED.MALEGU ---
HPI - Male Genitourinary General: Chief complaint: Urogenital-Male Stated complaint: Need cath for bladder Time Seen by Provider: 09/08/24 04:50 History of Present Illness: 74-year-old male presents the emergency department with concerns for urinary retention. Patient had neck surgery recently where they placed a Swanson catheter. They removed his catheter after surgery and he developed urinary retention requiring the Swanson to be replaced. He had the Swanson removed yesterday and started to have the same symptoms. He is returning to the emergency department to have a Swanson put back in as he feels like he has retention again. Patient has known BPH and is working with urology. Denies fevers, chills, unexplained weight loss. Related Data Home Medications ?Medication ?Instructions ?Recorded ?Confirmed amitriptyline 25 mg tablet 25 mg PO .qhs 05/26/24 09/07/24 Previous Rx's ?Medication ?Instructions ?Recorded CPAP (Auto-Titrating CPAP) #1 ea 06/27/23 bipap #1 ea 10/07/23 cane #1 10/07/23 lisinopril 10 mg tablet 10 mg PO DAILY #90 tabs 03/10/24 tamsulosin 0.4 mg capsule 0.4 mg PO BID #180 caps 08/09/24 hydrocodone 5 mg-acetaminophen 325 1 tab PO .Q4-6H PRN Pain 7 days 09/03/24 mg tablet #42 tabs lift recliner #1 ea 09/07/24 omeprazole 40 mg capsule,delayed 40 mg PO DAILY 8 weeks #60 caps 09/08/24 release Allergies Allergy/AdvReac Type Severity Reaction Status Date / Time ciprofloxacin (From Cipro) Allergy Intermediate Vomiting Verified 09/08/24 04:56 celecoxib (From Celebrex) Allergy ADR/ALGY-Hy Verified 09/08/24 04:56 potension Iodinated Contrast Media Allergy Vomiting Verified 09/08/24 04:56 meloxicam (From Mobic) Allergy ADR-Hyperte Verified 09/08/24 04:56 nsion Review of Systems General: Reports: 10 or more systems reviewed and unremarkable except in HPI and below PFSH ED PFSH: Medical History BPH (benign prostatic hyperplasia) Surgical History Status post carpal tunnel release History of tonsillectomy History of rhinoplasty deviated septum History of lumbar surgery x 2; L4/5 & L5/S1 History of cholecystectomy Family History Mother Lung cancer smoker Father CAD (coronary artery disease) Social History Smoking and tobacco/nicotine status: unknown if used tobacco/nicotine Alcohol intake: never Substance/Drug Use: never Lives independently: Yes Household members: spouse Marital status: Marital status details: in 2003 Highest education level completed: Other Doctoral Degree 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Yazidism: Taoist Agree to transfusion: No Physical Exam Const: COMMON NORMALS: no acute distress, patient oriented x3, healthy appearing, alert and well nourished HENMT: COMMON NORMALS: normocephalic HEAD & SCALP: normocephalic MOUTH: Normal oral and palatal mucosa present THROAT: posterior oropharynx normal Eye: COMMON NORMALS: EOMs intact bilaterally Neck/C-Spine: COMMON NORMALS: full ROM and supple Resp: COMMON NORMALS: normal respiratory effort, No retractions and clear to auscultation bilaterally AUSCULTATION: clear to auscultation bilaterally Cardio: COMMON NORMALS: regular rate, regular rhythm, No gallops present (Cardio) and No murmurs present (Cardio) RATE: regular rate RHYTHM: regular rhythm GI: COMMON NORMALS: Soft to palpation and non-tender PALPATION: Yes Soft to palpation Extremity: GENERAL: Yes normal exam except as noted Neuro: COMMON NORMALS: patient oriented x3 SENSORIUM/ORIENTATION: Yes alert Skin: COMMON NORMALS: no rashes or lesions noted GENERAL SKIN EXAM: no rashes or lesions noted Course Vital Signs: Vital signs: Vital Signs Temperature 98.0 F 09/08/24 04:49 Pulse Rate 101 H 09/08/24 04:49 Respiratory Rate 18 09/08/24 04:49 Blood Pressure 202/117 09/08/24 04:49 Pulse Oximetry 95 09/08/24 04:49 Oxygen Delivery Me thod Room Air 09/08/24 04:49 MDM - Male Medical Decision Making 74-year-old male presented back to the emergency department for urinary retention. A Swanson catheter was placed. After the Swanson was placed the patient had 800ml of output. Patient had relief of the sensation of urinary retention. Counseled the patient to follow-up with urology for further management of Swanson and BPH. Return precautions were discussed and the patient was discharged home in good condition. No radiology studies performed this visit Discharge Plan Discharge Patient Disposition: Home Clinical Impression: Urinary retention BPH (benign prostatic hyperplasia) Qualifiers: Lower urinary tract symptom presence: symptoms present Lower urinary tract symptom detail: incomplete bladder emptying Qualified Code(s): N40.1 - Benign prostatic hyperplasia with lower urinary tract symptoms Condition: Stable Prescriptions: No Action (DME) lift recliner See Rx Instructions .Route .MEDSUPPLY Qty: 1 0RF Rx Instructions: As directed. Order 99 days (DME) bipap See Rx Instructions .Route .MEDSUPPLY Qty: 1 0RF Rx Instructions: Settings at 15/11cm Please provide supples- tubing, facemask (DME) cane See Rx Instructions .Route .MEDSUPPLY Qty: 1 0RF Rx Instructions: As directed lisinopril 10 mg tablet 10 mg PO DAILY Qty: 90 0RF amitriptyline 25 mg tablet 25 mg PO .qhs (DME) Auto-Titrating CPAP Device See Rx Instructions .Route Qty: 1 0RF Rx Instructions: 6-12 mmH2O include supplies tamsulosin 0.4 mg capsule 0.4 mg PO BID Qty: 180 0RF hydrocodone-acetaminophen 5-325 mg tablet 1 tab PO .Q4-6H PRN (Reason: Pain) 7 Days Qty: 42 0RF omeprazole 40 mg capsule,delayed release(DR/EC) 40 mg PO DAILY 56 Days Qty: 60 0RF Discharge Orders: Discharge ED (Routine); Ordered 09/08/24 Ordered By: Jose Roberto Murray Referrals: Vanna Woodard MD [Primary Care Provider, Family Practice] Discharge Diet: Advance as tolerated Discharge Activity: Resume usual activity Patient Instructions: Opioid Safety, Pain Management Activity Restrictions/Additional Instructions: Please follow-up with urology for management with Swanson. 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
[2024-09-08 05:13] VITALS: BP 138/88; PULSE 92; RESP 16; O2SAT 94
== END 2024-09-08 05:14 | disposition home or self-care (01) ==
PROVIDERS: Emergency Provider General Practice; PCP Family Medicine
DX: N40.1 Benign prostatic hyperplasia with lower urinary tract symptoms (principal); R33.9 Retention of urine, unspecified
CPT/HCPCS: 51702; 99283

== ENCOUNTER 2024-09-28 07:01 | Emergency (ER) | payer MEDICARE, BC, SELFPAY ==
[2024-09-28 07:26] VITALS: BP 140/94; PULSE 122; RESP 18; TEMP 36.7; BMI 33.2
--- NOTE | 2024-09-28 07:37 | ED_ITS ---
HPI - Male Genitourinary 2 General: Chief complaint: Urogenital-Male Stated complaint: unable to urinate Time Seen by Provider: 09/28/24 07:08 History of Present Illness: 74-year-old male presents emergency room with inability to urinate. Last month he has had a neck surgery since then he has had difficulty with urinary retention. He had a Swanson catheter postoperatively it was taken out yesterday but since being taken out has not been able to void he is extremely uncomfortable. Denies fever sweats chills denies hematuria he is not on any anticoagulants. Associated symptoms: Deny dysuria Related Data Home Medications ?Medication ?Instructions ?Recorded ?Confirmed amitriptyline 25 mg tablet 25 mg PO .qhs 05/26/2408/20 Previous Rx's ?Medication ?Instructions ?Recorded CPAP (Auto-Titrating CPAP) #1 ea 06/27/23 bipap #1 ea 10/07/23 cane #1 ea 10/07/23 lisinopril 10 mg tablet 10 mg PO DAILY #90 tabs 02/20 tamsulosin 0.4 mg capsule 0.4 mg PO BID #180 caps 07/21 05/15 hydrocodone 5 mg-acetaminophen 325 1 tab PO .Q4-6H PRN Pain 7 days 09/03/24 mg tablet #42 tabs lift recliner #1 09/07/24 omeprazole 40 mg capsule,delayed 40 mg PO DAILY 8 week s #60 caps 09/08/24 release ondansetron 4 mg disintegrating 4 mg translingual Q8H PRN nausea 09/20/24 tablet and vomiting #10 tabs cefpodoxime 200 mg tablet 200 mg PO BID #20 tabs 09/28 Allergies Allergy/AdvReac Type Severity Reaction Status Date / Time ciprofloxacin (From Cipro) Allergy Intermediate Vomiting Verified 09/08/24 04:56 celecoxib (From Celebrex) Allergy ADR/ALGY-Hy Verified 09/08/24 04:56 potension Iodinated Contrast Media Allergy Vomiting Verified 09/08/24 04:56 meloxicam (From Mobic) Allergy ADR-Hyperte Verified 09/08/24 04:56 nsion Review of Systems 2 Const: Denies: fever(s) or chills Card: Denies: chest pain Resp: Denies: dyspnea GI: Denies: abdominal pain : Reports: urinary hesitancy, urinary dribbling and difficulty starting urination; Denies: dysuria, urinary frequency or urinary urgency Musc: Denies: neck pain or back pain Skin/Breast: Denies: rash PFSH ED 2 PFSH: Medical History BPH (benign prostatic hyperplasia) Surgical History Status post carpal tunnel release History of tonsillectomy History of rhinoplasty deviated septum History of lumbar surgery x 2; L4/5 & L5/S1 History of cholecystectomy Family History Mother Lung cancer smoker Father CAD (coronary artery disease) Social History Smoking and tobacco/nicotine status: unknown if used tobacco/nicotine Alcohol intake: never Substance/Drug Use: never Lives independently: Yes Household members: spouse Marital status: Marital status details: in 2003 Highest education level completed: Other Doctoral Degree 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 [employer] Agree to transfusion: No Physical Exam 2 Const: GENERAL APPEARANCE: cooperative ORIENTATION/CONSCIOUSNESS: Yes awake, Yes oriented to person, Yes oriented to place and Yes oriented to time HENMT: COMMON NORMALS: normocephalic, atraumatic and hearing grossly normal bilaterally HEAD & SCALP: normocephalic and atraumatic Resp: COMMON NORMALS: normal respiratory effort, No retractions, No use of accessory muscles and clear to auscultation bilaterally AUSCULTATION: clear to auscultation bilaterally Cardio: COMMON NORMALS: regular rate, regular rhythm and No murmurs present (Cardio) RATE: regular rate RHYTHM: regular rhythm GI: COMMON NORMALS: Soft to palpation and No hepatosplenomegaly present A USCULTATION: Yes normoactive bowel sounds PALPATION: Yes Soft to palpation, No Tenderness to palpation present (GI), No Guarding due to palpation present (GI) and Yes No hepatosplenomegaly present Extremity: COMMON NORMALS: normal to inspection, capillary refill normal, no clubbing, cyanosis or edema, no calf tenderness and no pedal edema Neuro: SENSORIUM/ORIENTATION: Yes oriented to person, Yes oriented to place and Yes oriented to time Skin: COMMON NORMALS: no rashes or lesions noted GENERAL SKIN EXAM: no rashes or lesions noted Course 2 Vital Signs: Vital signs: Vital Signs Temperature 98.1 F 09/28/24 07:26 Pulse Rate 103 H 09/28/24 09:00 Respiratory Rate 16 09/28/24 09:00 Blood Pressure 123/90 09/28/24 09:00 Pulse Oximetry 96 09/28/24 09:00 Oxygen Delivery Me thod Room Air 09/28/24 08:19 MDM - Male Medical Decision Making Swanson placed (100 mL of urine out. Patient does have a mild cystitis no leukocytosis will discharge patient home on oral antibiotics started on cefpodoxime 200 mg 1 pill twice daily for 10 days. Continue tamsulosin 1 discharge home with a leg bag follow-up with urology return if has further problems or develops fever Medical Records I reviewed the patient's medical records. Lab Data I reviewed the patient's lab results. 09/28/24 07:49 09/28/24 07:49 Laboratory Results WBC 7.95 10^3/uL (3.29-11.43) 09/28/24 07:49 RBC 4.38 10^6/uL (3.85-5.65) 09/28/24 07:49 Hgb 13.10 g/dL (11.27-16.99) 09/28/24 07:49 Hct 38.2 % (37-53) 09/28/24 07:49 MCV 87.2 fl (82-101) 09/28/24 07:49 MCH 29.9 pg (27-33) 09/28/24 07:49 MCHC 34.3 g/dL (30-55) 09/28/24 07:49 RDW 14.1 % (12.1-15.1) 09/28/24 07:49 Plt Count 198 10^3/cmm (157-399) 09/28/24 07:49 MPV 9.4 fL (7.4-10.4) 09/28/24 07:49 Neut % (Auto) 76.4 % 09/28/24 07:49 Lymph % (Auto) 14.8 % 09/28/24 07:49 [place] % (Auto) 5.5 % 09/28/24 07:49 Eos % (Auto) 1.9 % 09/28/24 07:49 Baso % (Auto) 0.5 % 09/28/24 07:49 Neut # (Auto) 6.07 10^3/uL (1.8-7.7) 09/28/24 07:49 Lymph # (Auto) 1.2 10^3/uL (0.8-4.8) 09/28/24 07:49 [place] # (Auto) 0.4 10^3/uL (0.2-0.9) 09/28/24 07:49 Eos # (Auto) 0.2 10^3/uL (0.0-0.8) 09/28/24 07:49 Baso # (Auto) 0.0 10^3/uL (0.0-0.1) 09/28/24 07:49 Nucleated RBC % (auto) 0 % 09/28/24 07:49 Nucleated RBCs # 0.0 /100WBC 09/28/24 07:49 Sodium 136 mmol/L (136-145) 09/28/24 07:49 Potassium 4.0 mmol/L (3.5-5.1) 09/28/24 07:49 Chloride 101 mmol/L (98-107) 09/28/24 07:49 Carbon Dioxide 18 mmol/L (22-29) L 09/28/24 07:49 Anion Gap 21.0 (5-19) H 09/28/24 07:49 BUN 23 mg/dL (8-23) 09/28/24 07:49 Creatinine 0.8 mg/dL (0.7-1.2) 09/28/24 07:49 GFR Calculation Not Reportable 09/28/24 07:49 Glucose 147 mg/dL (65-115) H 09/28/24 07:49 Calculated Osmolality 288 mOsm/kg (285-295) 09/28/24 07:49 Calcium 9.4 mg/dL (8.5-10.5) 09/28/24 07:49 Urine Color Dark yellow (Yellow) A 09/28/24 07:57 Urine Appearance Cloudy (CLEAR) A 09/28/24 07:57 Urine pH 5.5 (5-7) 09/28/24 07:57 Ur Specific [place] 1.019 (1.005-1.030) 09/28/24 07:57 Urine Protein Trace (Negative) A 09/28/24 07:57 Urine Glucose (UA) Negative (Normal) 09/28/24 07:57 Urine Ketones Negative (Negative) 09/28/24 07:57 Urine Blood 2+ (Negative) A 09/28/24 07:57 Urine Nitrate Negative (Negative) 09/28/24 07:57 Urine Bilirubin Negative (Negative) 09/28/24 07:57 Urine Urobilinogen 0.2 mg/dL (Negative) 09/28/24 07:57 Ur Leukocyte Esterase 3+ (Negative) A 09/28/24 07:57 Urine RBC >100 /hpf (0-2) H 09/28/24 07:57 Urine WBC >100 /hpf (0-5) H 09/28/24 07:57 Ur Squamous Epith Cells 0-5 /hpf (0-5) 09/28/24 07:57 Amorphous Sediment Not Reportable 09/28/24 07:57 Urine Bacteria 4+ /hpf (NONE) H 09/28/24 07:57 Hyaline Casts 1.21 /lpf 09/28/24 07:57 No radiology studies performed this visit Discharge Plan Discharge Patient Disposition: Home Clinical Impression: Acute urinary retention, Cystitis BPH (benign prostatic hyperplasia) Qualifiers: Lower urinary tract symptom presence: symptoms present Lower urinary tract symptom detail: incomplete bladder emptying Qualified Code(s): N40.1 - Benign prostatic hyperplasia with lower urinary tract symptoms Condition: Stable Prescriptions: New cefpodoxime 200 mg tablet 200 mg PO BID Qty: 20 0RF Rx Instructions: must administer with a meal/food No Action (DME) lift recliner See Rx Instructions .Route .MEDSUPPLY Qty: 1 0RF Rx Instructions: As directed. Order 99 days (DME) bipap See Rx Instructions .Route .MEDSUPPLY Qty: 1 0RF Rx Instructions: Settings at 15/11cm Please provide supples- tubing, facemask (DME) cane See Rx Instructions .Route .MEDSUPPLY Qty: 1 0RF Rx Instructions: As directed lisinopril 10 mg tablet 10 mg PO DAILY Qty: 90 0RF amitriptyline 25 mg tablet 25 mg PO .qhs (DME) Auto-Titrating CPAP Device See Rx Instructions .Route Qty: 1 0RF Rx Instructions: 6-12 mmH2O include supplies tamsulosin 0.4 mg capsule 0.4 mg PO BID Qty: 180 0RF hydrocodone-acetaminophen 5-325 mg tablet 1 tab PO .Q4-6H PRN (Reason: Pain) 7 Days Qty: 42 0RF ondansetron 4 mg tablet,disintegrating 4 mg translingual Q8H PRN (Reason: nausea and vomiting) Qty: 10 0RF omeprazole 40 mg capsule,delayed release(DR/EC) 40 mg PO DAILY 56 Days Qty: 60 0RF Discharge Orders: Discharge ED (Routine); Ordered 09/28/24 Ordered By: Kamar Amador Referrals: Vanna Woodard MD [Primary Care Provider, Family Practice] Discharge Diet: Usual diet Discharge Activity: Increase activity as tolerated Patient Instructions: Opioid Safety, Pain Management Activity Restrictions/Additional Instructions: Thank you for choosing [facility] for your healthcare needs today. It is very important that you follow up as instructed or that you return to the Emergency Department should you have concerns or if your condition changes or worsens in any way. You are seen in the emergency room with complaints of unable to empty your bladder. A Swanson catheter was placed had over 800 mL out. Leg bag will be left to place. Will start you on cefpodoxime 200 mg 1 tablet twice a day. Continue tamsulosin alone. Urine was cultured follow-up with urology. Print Language: Yoruba Coding Level of Care Code ED Radiation Monitor for Carole Trujillo
[2024-09-28 07:54] LABS: Basophils % 0.5 %; Eosinophils # 0.2 10^3/uL (0.0-0.8); Eosinophils % 1.9 %; Hematocrit 38.2 % (37-53); Lymphocytes # 1.2 10^3/uL (0.8-4.8); Lymphocytes % 14.8 %; Mean Corpuscular HGB Conc 34.3 g/dL (30-55); Mean Corpuscular Hemoglobin 29.9 pg (27-33); Mean Corpuscular Volume 87.2 fl (82-101); Mean Platelet Volume 9.4 fL (7.4-10.4); Monocytes # 0.4 10^3/uL (0.2-0.9); Monocytes % 5.5 %; Neutrophils # 6.07 10^3/uL (1.8-7.7); Neutrophils % 76.4 %; Nucleated Red Blood Cells % 0 %; Platelet Count 198 10^3/cmm (157-399); Red Blood Count 4.38 10^6/uL (3.85-5.65); Red Cell Distribution Width 14.1 % (12.1-15.1); White Blood Count 7.95 10^3/uL (3.29-11.43)
[2024-09-28 08:14] LABS: Blood Urea Nitrogen 23 mg/dL (8-23); Calcium 9.4 mg/dL (8.5-10.5); Carbon Dioxide 18 mmol/L (22-29); Chloride 101 mmol/L (98-107); Creatinine Clr Calc Pharmacy 102.7822; Glucose 147 mg/dL (65-115); Osmolality Calculated 288 mOsm/kg (285-295); Sodium 136 mmol/L (136-145)
[2024-09-28 08:19] VITALS: BP 118/78; PULSE 93; O2SAT 96
[2024-09-28 08:37] LABS: Bilirubin Urine Negative (Negative); Blood Urine 2+ (Negative); Glucose Urine UA Negative (Normal); Ketones Urine Negative (Negative); Leukocyte Esterase Urine 3+ (Negative); Nitrate Urine Negative (Negative); Protein Urine Trace (Negative); Specific Gravity, Urine 1.019 (1.005-1.030); Urine Appearance Cloudy (CLEAR); Urine Color Dark Yellow (Yellow); Urobilinogen Urine 0.2 mg/dL (Negative); pH Urine 5.5 (5-7)
[2024-09-28 08:39] LABS: Add Urine Microscopic? YES; Bacteria Urine 4+ /hpf; Hyaline Casts Urine 1.21 /lpf; RBC Urine >100 /hpf (0-2); Squamous Epithelial Cell Urine 0-5 /hpf (0-5); WBC Urine >100 /hpf (0-5)
[2024-09-28 08:53] LABS: Add Urine Culture? Yes
[2024-09-28 09:00] VITALS: BP 123/90; PULSE 103; RESP 16; O2SAT 96
== END 2024-09-28 09:15 | disposition home or self-care (01) ==
PROVIDERS: Emergency Provider Family Medicine; PCP Family Medicine
DX: R33.9 Retention of urine, unspecified (principal); N30.90 Cystitis, unspecified without hematuria; N40.1 Benign prostatic hyperplasia with lower urinary tract symptoms
CPT/HCPCS: 36415; 51702; 80048; 81001; 85025; 87077; 87086; 87186; 99283

== ENCOUNTER → 2024-10-07 13:41 | Outpatient (BNVA) | payer MEDICARE, BC, SELFPAY | PROVIDERS: PCP Family Medicine; Visit Provider Orthopaedic Surgery | DX: Z98.890 Other specified postprocedural states (principal); Z98.1 Arthrodesis status | CPT/HCPCS: 72040; 99024 ==

== ENCOUNTER 2024-10-13 06:03 | Emergency (ER) | payer MEDICARE, BC, SELFPAY ==
--- OUTSIDE RECORDS SUMMARY | 2023-06-09 08:00 | XMS_ITS ---
Author Organization [facility] Address [address] [place] [address] Care Team Providers Care Supervisor Covering And Lining Name Role Phone Milana Sauceda Primary Care Provider Unavaila Eder Vasquez Unavailable [phone] MILO MORENO Unavailable Unavailable Encounters Encounter Location Date Provider Diagnosis [facility] [address] [place] [address] [address] [place] [address] 06/09/2023 Eder Lawler Plan Of Treatment No Information Progress Notes * Randall ZAVALADOB:1950 (74 yo M)Acc No.[id number]:06/09/2023 Progress Notes Patient: Randall PAULINO Provider: Soraya Lawler MD :1950 A ge:73 Y S ex:Male Date:06/09/2023 Address:[address] [facility] [address], [place], [id number] Pcp:STANLEY Bui Subjective: * Chief Complaints: * * Medical History: Objective: * Vitals: Assessment: Plan: * Treatment: Forms: * Billing Information: * Visit Code: * Procedure Codes: Care Plan Details* * Electronic signature of Siria Lawler MD on 10/13/2024 at 06:10 AM CDT Sign off status: Pending * Provider: Soraya Lawler MD Date: 06/09/2023 Generated for Printi ng/Faxing/eTransmitting on: 0 10/13/2024 06:10 AM CDT
--- OUTSIDE RECORDS SUMMARY | 2023-10-11 04:00 | XMS_ITS ---
Author Organization [facility] Address [address] [place] [address] Care Team Providers Care Restaurant Assistant Manager Name Role Phone Milana Sauceda Primary Care Provider UnavailEder Hawkins Unavailable [phone] MILO MORENO Unavailable Unavailable Migration, Provider Unavailable [...] Oral Tablet ORAL 05/29/2022 *Re order from [facility] for eRx and Interaction Alerts* Progress Notes * Randall ZAVALADOB:1950 (74 yo M)Acc No.[id number]:10/11/2023 Patient: Randall PAULINO :1950 A ge:73 Y S ex:Male Address:[address] [facility] [address], [place] [address] * Refills Stop Tamsulosin HCl Capsule, 0.4 [...]
--- OUTSIDE RECORDS SUMMARY | 2023-10-12 04:00 | XMS_ITS ---
Author Organization [facility] Address [address] [place] [address] Care Team Providers Care Supervisor Sign Shop Name Role Phone Milana Sauceda Primary Care Provider UnavailEder Hawkins Unavailable [phone] MILO MORENO Unavailable Unavailable Migration, Provider Unavailable [...] Notes * Randall ZAVALADOB:1950 (74 yo M)Acc No.[id number]:10/12/2023 Patient: Randall PAULINO :1950 A ge:73 Y S ex:Male Address:[address] [facility] [address], [place] [address] Subjective: * Chief Complaints: * E MR-Shad [...]
[2024-10-13 06:11] VITALS: BP 161/102; PULSE 112; RESP 22; TEMP 36.6; O2SAT 97; BMI 33.0
--- OUTSIDE RECORDS SUMMARY | 2024-10-13 06:11 | XMS_ITS | Clinical Summary ---
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
--- OUTSIDE RECORDS SUMMARY | 2024-10-13 06:11 | XMS_ITS | Patient Health Record ---
Author Organization [employer] Address [address] [place], [place] [address] Care Team Providers Care Wood Boat Builder Supervisor Name Role Phone AFTAB BRAUN Unavailable [phone] Allergies Allergen (clinical drug ingredient) Drug/Non Drug [...] W/U Status Risk Notes Problem Testicular hypofunction (791179067) Testicular hypofunction (E29.1) Active confirmed Problem Obesity (302467683) Obesity, unspecified (E66.9) Active confirmed Problem Elevated PSA (544914563) Elevated prostate specific antigen [PSA] (R97.20) Active confirmed Plan Of Treatment Pending Test Test Name Order Date Blood Urea Nitrogen (BUN) 58581 06/20/19 22 Creatinine (B) 15723 06/19/2021 Follicle Stimulating Hormone (FSH) 20506 06/05/2021 LH, Luteinizing Hormone 07544 06/05/2021 MRI Pelvis w/ + w/o Cont--[id number] 06/20/19 22 PSA, TOTAL (5363) 06/05/2021 Insurance Providers Payer Name Payer Address Payer Phone Subscriber Number Group Number Insured Name Patient Relationship to Insured Coverage Start Date Coverage End Date [place] [address] [place] [phone] [id number] Randall Zavala Self - patient is the insured [place] [address] [place] [address] [id number] Randall Zavala Self - patient is the insured Medications Administered Medication Instructions Date of Administration Dosage Notes CYANOCOBALAMIN 07/05/2021 1 mg Medical (General) History Medical History History ICD Code hypertension elevated PSA osteoarthritis Surgical History Surgery Date(Month/Year) lumbar disc l5-s1 cholecystectomy
--- OUTSIDE RECORDS SUMMARY | 2024-10-13 06:11 | XMS_ITS | Patient Health Record ---
Author Organization [facility] Address [address] [place] [address] Care Team Providers Care Location Manager Name Role Phone Milana Sauceda Primary Care Provider Unavaila Eder Vasquez Unavailable [phone] MILO MORENO Unavailable Unavailable Allergies Allergen (clinical drug ingredient) [...] Problem Status W/U Status Risk Notes Problem 727440582 Frequency of micturition (R35.0) Active confirmed Problem 572923477896857 Benign prostatic hyperplasia with lower urinary tract symptoms (N40.1) Active confirmed Problem 258868260 Elevated PSA (R97.20) Active confirmed Problem Obstructive sleep apnea syndrome (47270445) CELIO (obstructive sleep apnea) (G47.33) Active confirmed Problem Continuous positive airway pressure ventilation treatment (35827250) CPAP (continuous positive airway pressure) dependence (Z99.89) Active confirmed Problem Sleep apnea (72023159) Sleep apnea (G47.30) Active confirmed Problem Allergic rhinitis (21531579) Chronic allergic rhinitis (J30.9) Active confirmed Problem Angioedema (52048596) Angioedema, initial encounter (T78.3XXA) Active confirmed Problem Recurrent sinusitis (253715294) Recurrent sinusitis (J32.9) Active confirmed Problem Hypertension (39122101) Hypertension (I10) Active confirmed Problem 792114190 Pre-syncope (R55) Active confirmed Plan Of Treatment Pending Test Test Name Order Date Complement [id number] 06/26/2020 Echo Complete [id number] 02/14/2020 US Carotid Doppler Bilateral-75980 02/13 Holter x 48 Hour-04131 02/14/2020 Holter x 48 Hour-45410 02/21/2020 Holter x 24 Hour-83344 03/23/2020 Sleep study > 3 Par-[id number] 03/07/2020 Sleep study > 3 Par-[id number] 03/14/2020 Insurance Providers Payer Name Payer Address Payer Phone Subscriber Number Group Number Insured Name Patient Relationship to Insured Coverage Start Date Coverage End Date [place] Medicare [address] [place] [phone] [id number] Randall Zavala Self - patient is the insured [facility] Commercial [address] [place] [address] [phone] [id number] Randall Zavala Self - patient is the insured Medical (General) History Medical History History ICD Code arthritis anemia back trouble hypertension bronchitis sleep apnea with CPAP at [facility] gout elevated PSA BPH with LUTS Surgical History Surgery Date(Month/Year) tonsils l4-l5 disk surgery l5-s1 disk surgery gallbladder removal Hospitalization History Reason Date(Month/Year) ER visit swelling in feet, then passing, chest pressure 09/03/20 ER visit severe headache, BP 220/115, ta chycardia 07/23/20 ER visit for allergic reaction 06/27/20 dizziness hyprostatic collapse
--- OUTSIDE RECORDS SUMMARY | 2024-10-13 06:11 | XMS_ITS | Patient Health Record ---
Author Organization [employer] [facility] Address [address] [place] [address] Care Team Providers Care Medical Scientist Name Role Phone Fidel Leonardo Primary Care Provider [phone] Allergies Allergen (clinical drug ingredient) Drug/Non Drug [...] TSL (1.3) Active confirmed Problem Essential hypertension (06454455) Essential (primary) hypertension (I10) Active confirmed Problem Enlarged prostate (360434217) Enlarged prostate without lower urinary tract symptoms (N40.0) Active confirmed Problem Obesity (144023332) Obesity, unspecified (E66.9) Active confirmed Problem Pain of right knee region (finding) (681119536305554 ) Pain in right knee (M25.561) Active confirmed Problem 28277043 Unstable gait (R26.81) Active confirmed Plan Of Treatment No Information Medical (General) History Medical History History ICD Code Arthritis HTN 11/2015 MRI Brain aging process/chronic microvasular ischemia, no acute Surgical History Surgery Date(Month/Year) L-4-5 Disc Removal (Good Results) 1974 L-5 / S-1 Disc Removal ( Failed Results ) 1991
--- OUTSIDE RECORDS SUMMARY | 2024-10-13 06:11 | XMS_ITS | Clinical Summary ---
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
--- NOTE | 2024-10-13 06:19 | ED_ITS ---
HPI - Male Genitourinary 2 General: Chief complaint: Urogenital-Male Stated complaint: trouble urinating Time Seen by Provider: 10/13/24 06:11 History of Present Illness: 74-year-old man with history of recent n milad surgery and then urinary retention. He been seen in the emergency room and a Swanson placed. He then followed with urology in [place] and left Swanson was removed a couple days ago. He did well for a couple of days and then started having urinary retention. He was given self catheters but when he attempted he was unable to get results and also had some blood so he feels he needs another catheter placed. He is having suprapubic pressure and has some urine output but feels like he is not emptying. No fevers. No nausea or vomiting. No altered mental status. Related Data Home Medications ?Medication ?Instructions ?Recorded ?Confirmed amitriptyline 25 mg tablet 25 mg PO .qhs 05/26/2409/19 Previous Rx's ?Medication ?Instructions ?Recorded CPAP (Auto-Titrating CPAP) #1 ea 06/27/23 bipap #1 ea 10/07/23 cane #1 ea 10/07/23 lisinopril 10 mg tablet 10 mg PO DAILY #90 tabs 02/20 tamsulosin 0.4 mg capsule 0.4 mg PO BID #180 caps 07/21 05/15 hydrocodone 5 mg-acetaminophen 325 1 tab PO .Q4-6H PRN Pain 7 days 09/03/24 mg tablet #42 tabs lift recliner #1 ea 09/07/24 omeprazole 40 mg capsule,delayed 40 mg PO DAILY 8 week s #60 caps 09/08/24 release ondansetron 4 mg disintegrating 4 mg translingual Q8H PRN nausea 09/20/24 tablet and vomiting #10 tabs cefpodoxime 200 mg tablet 200 mg PO BID #20 tabs 09/28 Bone Growth Stimulator #1 ea 10/04/24 cefdinir 300 mg capsule 300 mg PO BID 10 days #20 ca ps 10/13/24 tamsulosin 0.4 mg capsule (Flomax) 0.4 mg PO DAILY #30 caps 10/13/24 Allergies Allergy/AdvReac Type Severity Reaction Status Date / Time ciprofloxacin (From Cipro) Allergy Intermediate Vomiting Verified 10/07/24 13:47 celecoxib (From Celebrex) Allergy ADR/ALGY-Hy Verified 10/07/24 13:47 potension Iodinated Contrast Media Allergy Vomiting Verified 10/07/24 13:47 meloxicam (From Mobic) Allergy ADR-Hyperte Verified 10/07/24 13:47 nsion Review of Systems 2 Narrative: Constitutional symptoms: Negative except as documented in HPI. Skin symptoms: Negative except as documented in HPI. Eye symptoms: Negative except as documented in HPI. ENMT symptoms: Negative except as documented in HPI. Respiratory symptoms: Negative except as documented in HPI. Cardiovascular symptoms: Negative except as documented in HPI. Gastrointestinal symptoms: Negative except as documented in HPI. Genitourinary symptoms: Negative except as documented in HPI. Musculoskeletal symptoms: Negative except as documented in HPI. Neurologic symptoms: Negative except as documented in HPI. Psychiatric symptoms: Negative except as documented in HPI. Endocrine symptoms: Negative except as documented in HPI. PFSH ED 2 PFSH: Medical History BPH (benign prostatic hyperplasia) Surgical History Status post carpal tunnel release History of tonsillectomy History of rhinoplasty deviated septum History of lumbar surgery x 2; L4/5 & L5/S1 History of cholecystectomy Family History Mother Lung cancer smoker Father CAD (coronary artery disease) Social History Smoking and tobacco/nicotine status: never used tobacco/nicotine Alcohol intake: never Substance/Drug Use: never Lives independently: Yes Household members: spouse Marital status: Marital status details: in 2003 Highest education level completed: Other Doctoral Degree 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 Skin: Warm, dry. Head: Normocephalic, atraumatic. Neck: Supple, trachea midline. Eye: Extraocular movements are intact. Ears, nose, mouth and throat: mucosa moist. Cardiovascular: Regular, Normal peripheral perfusion. Respiratory: Lungs are clear to auscultation, respirations are non-labored, breath sounds are equal, Symmetrical chest wall expansion. Gastrointestinal: Soft, suprapubic tenderness, Non distended Musculoskeletal: Normal ROM, no deformity. Neurological: Alert and oriented, No focal neurological deficit observed. Psychiatric: Cooperative, appropriate mood & affect. Course 2 Vital Signs: Vital signs: Vital Signs Temperature 97.9 F 10/13/24 06:11 Pulse Rate 96 10/13/24 07:58 Respiratory Rate 22 H 10/13/24 06:11 Blood Pressure 105/65 10/13/24 07:58 Pulse Oximetry 96 10/13/24 07:58 Oxygen Delivery Me thod Room Air 10/13/24 07:58 MDM - Male Medical Decision Making Medical decision making: Differential diagnosis for patient with urinary retention including but not limited to and based on the above HPI, review of systems and physical exam:-: Urinary retention. Urinary tract infection. concerns for systemic infection, renal dysfunction Orders placed to evaluate differential diagnosis based on the above differential, HPI and physical exam Lab Review: Laboratory results were reviewed and interpreted by myself the emergency room physician. No leukocytosis. No anemia. No renal failure. Urinalysis does indicate infection with 4+ bacteria. 11-20 whites. Nitrate positive. I reviewed the patient's medical record. Reexamination: Patient remained stable. No increased work of breathing. No altered mental status. No focal motor deficits. Around 2000 cc of urine out with Swanson placement. Patient says he feels better. Assessment and plan: Urinary retention Urinary tract infection ? Swanson placement and IV Rocephin. - Discharged home - Discussed plan with patient. Answered any questions. - Evaluation and treatment of this problem were appropriate in the emergency setting. Lab Data 10/13/24 07:06 10/13/24 07:06 Laboratory Results WBC 7.70 10^3/uL (3.29-11.43) 10/13/24 07:06 RBC 3.98 10^6/uL (3.85-5.65) 10/13/24 07:06 Hgb 11.80 g/dL (11.27-16.99) 10/13/24 07:06 Hct 35.3 % (37-53) L 10/13/24 07:06 MCV 88.7 fl (82-101) 10/13/24 07:06 MCH 29.6 pg (27-33) 10/13/24 07:06 MCHC 33.4 g/dL (30-55) 10/13/24 07:06 RDW 13.9 % (12.1-15.1) 10/13/24 07:06 Plt Count 172 10^3/cmm (157-399) 10/13/24 07:06 MPV 9.1 fL (7.4-10.4) 10/13/24 07:06 Neut % (Auto) 80.7 % 10/13/24 07:06 Lymph % (Auto) 12.7 % 10/13/24 07:06 Rogers % (Auto) 4.5 % 10/13/24 07:06 Eos % (Auto) 1.2 % 10/13/24 07:06 Baso % (Auto) 0.4 % 10/13/24 07:06 Neut # (Auto) 6.21 10^3/uL (1.8-7.7) 10/13/24 07:06 Lymph # (Auto) 1.0 10^3/uL (0.8-4.8) 10/13/24 07:06 Rogers # (Auto) 0.4 10^3/uL (0.2-0.9) 10/13/24 07:06 Eos # (Auto) 0.1 10^3/uL (0.0-0.8) 10/13/24 07:06 Baso # (Auto) 0.0 10^3/uL (0.0-0.1) 10/13/24 07:06 Nucleated RBC % (auto) 0 % 10/13/24 07:06 Nucleated RBCs # 0.0 /100WBC 10/13/24 07:06 Sodium 138 mmol/L (136-145) 10/13/24 07:06 Potassium 3.9 mmol/L (3.5-5.1) 10/13/24 07:06 Chloride 103 mmol/L (98-107) 10/13/24 07:06 Carbon Dioxide 21 mmol/L (22-29) L 10/13/24 07:06 Anion Gap 17.9 (5-19) 10/13/24 07:06 BUN 20 mg/dL (8-23) 10/13/24 07:06 Creatinine 0.8 mg/dL (0.7-1.2) 10/13/24 07:06 GFR Calculation Not Reportable 10/13/24 07:06 Glucose 162 mg/dL (65-115) H 10/13/24 07:06 Calculated Osmolality 292 mOsm/kg (285-295) 10/13/24 07:06 Calcium 9.3 mg/dL (8.5-10.5) 10/13/24 07:06 Total Bilirubin 0.2 mg/dL (0.15-1.2) 10/13/24 07:06 AST 16 U/L (0-40) 10/13/24 07:06 ALT 20 U/L (0-41) 10/13/24 07:06 Alkaline Phosphatase 73 U/L (40-130) 10/13/24 07:06 Total Protein 6.7 g/dL (6.6-8.7) 10/13/24 07:06 Albumin 4.0 g/dL (3.5-5.2) 10/13/24 07:06 Globulin 2.7 g/dL (1.3-4.6) 10/13/24 07:06 Urine Color Yellow (Yellow) 10/13/24 06:54 Urine Appearance Clear (CLEAR) 10/13/24 06:54 Urine pH 5.5 (5-7) 10/13/24 06:54 Ur Specific Cucumber 1.010 (1.005-1.030) 10/13/24 06:54 Urine Protein Negative (Negative) 10/13/24 06:54 Urine Glucose (UA) Negative (Normal) 10/13/24 06:54 Urine Ketones Negative (Negative) 10/13/24 06:54 Urine Blood 3+ (Negative) A 10/13/24 06:54 Urine Nitrate Positive (Negative) A 10/13/24 06:54 Urine Bilirubin Negative (Negative) 10/13/24 06:54 Urine Urobilinogen 0.2 mg/dL (Negative) 10/13/24 06:54 Ur Leukocyte Esterase 1+ (Negative) A 10/13/24 06:54 Urine RBC 21-50 /hpf (0-2) H 10/13/24 06:54 Urine WBC 11-20 /hpf (0-5) H 10/13/24 06:54 Ur Squamous Epith Cells 0-5 /hpf (0-5) 10/13/24 06:54 Amorphous Sediment Not Reportable 10/13/24 06:54 Urine Bacteria 4+ /hpf (NONE) H 10/13/24 06:54 Hyaline Casts 0.40 /lpf 10/13/24 06:54 No radiology studies performed this visit Discharge Plan Discharge Patient Disposition: Home Clinical Impression: Acute retention of urine, Urinary tract infection Condition: Stable Prescriptions: New tamsulosin [Flomax] 0.4 mg capsule 0.4 mg PO DAILY Qty: 30 0RF cefdinir 300 mg capsule 300 mg PO BID 10 Days Qty: 20 0RF No Action (DME) lift recliner See Rx Instructions .Route .MEDSUPPLY Qty: 1 0RF Rx Instructions: As directed. Order 99 days (DME) bipap See Rx Instructions .Route .MEDSUPPLY Qty: 1 0RF Rx Instructions: Settings at 15/11cm Please provide supples- tubing, facemask (DME) cane See Rx Instructions .Route .MEDSUPPLY Qty: 1 0RF Rx Instructions: As directed lisinopril 10 mg tablet 10 mg PO DAILY Qty: 90 0RF amitriptyline 25 mg tablet 25 mg PO .qhs (DME) Auto-Titrating CPAP Device See Rx Instructions .Route Qty: 1 0RF Rx Instructions: 6-12 mmH2O include supplies tamsulosin 0.4 mg capsule 0.4 mg PO BID Qty: 180 0RF hydrocodone-acetaminophen 5-325 mg tablet 1 tab PO .Q4-6H PRN (Reason: Pain) 7 Days Qty: 42 0RF ondansetron 4 mg tablet,disintegrating 4 mg translingual Q8H PRN (Reason: nausea and vomiting) Qty: 10 0RF (DME) Bone Growth Stimulator See Rx Instructions .Route .MEDSUPPLY Qty: 1 0RF Rx Instructions: As directed omeprazole 40 mg capsule,delayed release(DR/EC) 40 mg PO DAILY 56 Days Qty: 60 0RF cefpodoxime 200 mg tablet 200 mg PO BID Qty: 20 0RF Rx Instructions: must administer with a meal/food Discharge Orders: Discharge ED (Routine); Ordered 10/13/24 Ordered By: Michelle Juárez Referrals: Vanna Woodard MD [Primary Care Provider, Family Practice] Discharge Diet: Usual diet Discharge Activity: Increase activity as tolerated Patient Instructions: Swanson Catheter Placement and Care (ED), Opioid Safety, Pain Management, Patient Portal & Alicja Instructions Activity Restrictions/Additional Instructions: Thank you for choosing [facility] for your healthcare needs today. You have been screened and evaluated and felt safe for discharge. Health conditions do change or evolve sometimes and as such it is important that you follow up with your Primary Doctor to be re checked, 3-5 days is a general good time frame for follow up. You are always welcome to return to the ED for re assessment if your symptoms are worsening or you have new concerns Print Language: Chadian Coding Level of Care Code ED Power Regulator for Carole Trujillo
[2024-10-13 07:11] LABS: Basophils % 0.4 %; Eosinophils # 0.1 10^3/uL (0.0-0.8); Eosinophils % 1.2 %; Hematocrit 35.3 % (37-53); Lymphocytes % 12.7 %; Mean Corpuscular HGB Conc 33.4 g/dL (30-55); Mean Corpuscular Hemoglobin 29.6 pg (27-33); Mean Corpuscular Volume 88.7 fl (82-101); Mean Platelet Volume 9.1 fL (7.4-10.4); Monocytes # 0.4 10^3/uL (0.2-0.9); Monocytes % 4.5 %; Neutrophils # 6.21 10^3/uL (1.8-7.7); Neutrophils % 80.7 %; Nucleated Red Blood Cells % 0 %; Platelet Count 172 10^3/cmm (157-399); Red Blood Count 3.98 10^6/uL (3.85-5.65); Red Cell Distribution Width 13.9 % (12.1-15.1)
[2024-10-13 07:15] LABS: Bilirubin Urine Negative (Negative); Blood Urine 3+ (Negative); Glucose Urine UA Negative (Normal); Ketones Urine Negative (Negative); Leukocyte Esterase Urine 1+ (Negative); Nitrate Urine Positive (Negative); Protein Urine Negative (Negative); Urine Appearance Clear (CLEAR); Urine Color Yellow (Yellow); Urobilinogen Urine 0.2 mg/dL (Negative); pH Urine 5.5 (5-7)
[2024-10-13 07:20] LABS: Bacteria Urine 4+ /hpf; RBC Urine 21-50 /hpf (0-2); Squamous Epithelial Cell Urine 0-5 /hpf (0-5)
[2024-10-13 07:23] LABS: Add Urine Culture? Yes
[2024-10-13 07:27] LABS: Alanine Aminotransferase 20 U/L (0-41); Alkaline Phosphatase 73 U/L (40-130); Anion Gap 17.9 (5-19); Aspartate Amino Transferase 16 U/L (0-40); Blood Urea Nitrogen 20 mg/dL (8-23); Calcium 9.3 mg/dL (8.5-10.5); Carbon Dioxide 21 mmol/L (22-29); Chloride 103 mmol/L (98-107); Globulin 2.7 g/dL (1.3-4.6); Glucose 162 mg/dL (65-115); Osmolality Calculated 292 mOsm/kg (285-295); Potassium 3.9 mmol/L (3.5-5.1); Sodium 138 mmol/L (136-145); Total Bilirubin 0.2 mg/dL (0.15-1.2); Total Protein 6.7 g/dL (6.6-8.7)
[2024-10-13] MEDS: cefTRIAXone 1,000 mg SDV 1000 MG IVP (07:56)
[2024-10-13 07:58] VITALS: BP 105/65; PULSE 96; O2SAT 96
--- NOTE | 2024-10-13 10:11 | PC.NURSE ---
Placed leg bag on pt prior to discharge.
== END 2024-10-13 10:12 | disposition home or self-care (01) ==
PROVIDERS: Emergency Provider Emergency Medicine; PCP Family Medicine
DX: R33.9 Retention of urine, unspecified (principal); N39.0 Urinary tract infection, site not specified
CPT/HCPCS: 36415; 51702; 80053; 81001; 85025; 87077; 87086; 87186; 96374; 99284; J0696

== ENCOUNTER → 2024-11-11 13:03 | Outpatient (BNVA) | payer MEDICARE, BC, SELFPAY | PROVIDERS: PCP Family Medicine; Visit Provider Orthopaedic Surgery | DX: Z98.1 Arthrodesis status (principal); R29.898 Other symptoms and signs involving the musculoskeletal system | CPT/HCPCS: 72040; 99024 ==

== ENCOUNTER 2024-11-20 12:35 | Emergency (ER) | payer MEDICARE, BC, SELFPAY ==
--- OUTSIDE RECORDS SUMMARY | 2023-06-09 08:00 | XMS_ITS ---
Author Organization [facility] Address [address] [place] [address] Care Team Providers Care Psychology Professor Name Role Phone Milana Blankenship Primary Care Provider AFTAB Contreras Unavailable [phone] Salvador Arceo Unavailable Unavailable Eder Lawler Unavailable Unavailable Encounters Encounter Location Date Provider Diagnosis [facility] [address] [facility] [place] [address] 06/09/2023 Eder Lawler Plan Of Treatment No Information Progress Notes * Randall ZAVALADOB:1950 (74 yo M)Acc No.[id number]:06/09/2023 Progress Notes Patient: Randall PAULINO Provider: :1950 A ge:73 Y S ex:Male Date:06/09/2023 Address:[address] [facility] [address], [place], [id number] Pcp:Milana Blankenship Subjective: * Chief Complaints: * * Medical History: Objective: * Vitals: Assessment: Plan: * Treatment: * Billing Information: * Visit Code: * Procedure Codes: * Electronic signature of Siria Lawler on 11/20/2024 at 12:43 PM CDT Sign off status: Pending * Provider: Date: 06/09/2023 Generated for Isai brunson/Brianna/eTransmitting on: 11/20/2024 12:43 PM CDT
--- OUTSIDE RECORDS SUMMARY | 2023-10-11 04:00 | XMS_ITS ---
Author Organization [facility] Address [address] [facility] [place] [address] Care Team Providers Care Marketing Production Specialist Name Role Phone Milana Sauceda Primary Care Provider UnavailEder Hawkins Unavailable [phone] MILO MORENO Unavailable Unavailable Migration, Provider Unavailable Unavailable REASON FOR VISIT EMR-Shad Encounters Encounter Location Date Provider Diagnosis Migrated_Facility 0 0 10/11/2023 Provider Migration Plan Of Treatment Medication Medication Name Sig Start Date Stop Date Notes Alfuzosin HCl ER 10 MG Table t Extended Release 24 Hour Oral 07/16/2022 07/11/2023 Tamsulosin HCl 0.4 MG Capsule Oral 07/16/20222022 Hydrochlorothiazide 12.5 MG / Lisinopril 20 MG Oral Tablet ORAL 05/29/2022 *Re order from [facility] for eRx and Interaction Alerts* Progress Notes * Randall ZAVALADOB:1950 (74 yo M)Acc No.[id number]:10/11/2023 Patient: Randall PAULINO :1950 A ge:73 Y S ex:Male Address:[address] [facility] [address], [place] [address] * Refills Stop Tamsulosin HCl Capsule, 0.4 MG, Oral Stop Alfuzosin HCl ER Tablet Extended Release 24 Hour, 10 MG, Oral Stop Alfuzosin HCl ER Tablet Extended Release 24 Hour, 10 MG, Oral Stop Hydrochlorothiazide 12.5 MG / Lisinopril 20 MG Oral Tablet, ORAL Subjective: * Chief Complaints: * E MR-Shad * * Date:
--- OUTSIDE RECORDS SUMMARY | 2023-10-12 04:00 | XMS_ITS ---
Author Organization [facility] Address [address] [place] [address] Care Team Providers Care Coater Helper Name Role Phone Milana Sauceda Primary Care Provider UnavailEder Hawkins Unavailable [phone] MILO MORENO Unavailable Unavailable Migration, Provider Unavailable [...] End Date Status Sulfamethoxazole-Trimetho prim 800-160 MG Tablet Oral 07/16/2022 07/23/2022 Activ e diazePAM 10 MG Tablet Oral 07/19/2022 023 Active Lisinopril 10 MG Tablet Oral 05/29/202208/27 Active Tamsulosin HCl 0.4 MG Capsule Oral 08/14/2022 08/09/2023 Active Social History Social History Additional Details Category Social Info Options Details Migrated Social History Migrated Social History Smoking Status : Never used tobacco , History of tobacco use : Encounters Encounter Location Date Provider Diagnosis Migrated_Facility 0 0 10/12/2023 Provider Migration Plan Of Treatment No Information Progress Notes * Randall ZAVALADOB:1950 (74 yo M)Acc No.[id number]:10/12/2023 Patient: Randall PAULINO :1950 A ge:73 Y S ex:Male Address:[address], [place] [address] Subjective: * Chief Complaints: * E MR-Shad * Family History: F ather: PRN - [...] Onset Date 12/30/2018Cipro: AllergyIodinated Diagnostic Agents: Allergy * * Date:
[2024-11-20 12:38] VITALS: BP 127/88; PULSE 92; RESP 18; TEMP 36.6; O2SAT 95
--- OUTSIDE RECORDS SUMMARY | 2024-11-20 12:43 | XMS_ITS | Patient Health Record ---
Author Organization [facility] Address [address] [place] [address] Care Team Providers Care Basic Combatant Swimmer Name Role Phone Fidel Leonardo Primary Care [...] TSL (1.3) Active confirmed Problem Essential hypertension (33573924) Essential (primary) hypertension (I10) Active confirmed Problem Enlarged prostate (854701774) Enlarged prostate without lower urinary tract symptoms (N40.0) Active confirmed Problem Obesity (353215308) Obesity, unspecified (E66.9) Active confirmed Problem Pain of right knee region (finding) (920432662963817 ) Pain in right knee (M25.561) Active confirmed Problem Abnormal gait (00523056) Unstable gait (R26.81) Active confirmed Plan Of Treatment No Information Medical (General) History Medical History History ICD Code Arthritis HTN 11/2015 MRI Brain aging process/chronic microvasular ischemia, no acute Surgical History Surgery Date(Month/Year) L-4-5 Disc Removal (Good Results) 1974 L-5 / S-1 Disc Removal ( Failed Results ) 1991
--- OUTSIDE RECORDS SUMMARY | 2024-11-20 12:43 | XMS_ITS | Clinical Summary ---
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
--- OUTSIDE RECORDS SUMMARY | 2024-11-20 12:43 | XMS_ITS | Patient Health Record ---
Author Organization [employer] Address [address] [place], [place] [address] Care Team Providers Care Alcohol Rubber Name Role Phone AFTAB BRAUN Unavailable [phone] Allergies Allergen (clinical drug ingredient) Drug/Non Drug Allergy documented on EMR Reaction Allergy Type Onset Date Status ciprofloxacin Cipro Unknown Drug Allergy Act eli Iodinated contrast media (substance) Iodinated Diagnostic Agents Unknown Drug Allergy Active Reason For Referral No Information Medications Medication SIG (Take, Route, Fr equency, Duration) Notes Start Date End Date Status Phentermine HCl 37.5 MG 1 tablet Orally Once a day; Duration: 30 days Active Meloxicam Active Social History Tobacco Use: Social History Observation Description Date Details (start date - stop date) Never Smoker NA - NA Tobacco Use/Smoking Question Answer Notes Are you a: never smoker Problems Problem Type SNOMED Code ICD Code Onset Dates Problem Status W/U Status Risk Notes Problem Testicular hypofunction (236613408) Testicular hypofunction (E29.1) Active confirmed Problem Obesity (549764643) Obesity, unspecified (E66.9) Active confirmed Problem Elevated prostate specific antigen [PSA] (R97.20) Active confirmed Plan Of Treatment Pending Test Test Name Order Date Blood Urea Nitrogen (BUN) 14287 06/20/19 22 Creatinine (B) 35132 06/19/2021 Follicle Stimulating Hormone (FSH) 35237 06/05/2021 LH, Luteinizing Hormone 59542 06/05/2021 MRI Pelvis w/ + w/o Cont--[id number] 06/20/19 22 PSA, TOTAL (5363) 06/05/2021 Insurance Providers Payer Name Payer Address Payer Phone Subscriber Number Group Number Insured Name Patient Relationship to Insured Coverage Start Date Coverage End Date [place] [address] [place] [phone] [id number] Randall Zavala Self - patient is the insured BCBS OF [facility] [address] [place] [address] [id number] Randall Zavala Self - patient is the insured Medications Administered Medication Instructions Date of Administration Dosage Notes CYANOCOBALAMIN 07/05/2021 1 mg Medical (General) History Medical History History ICD Code hypertension elevated PSA osteoarthritis Surgical History Surgery Date(Month/Year) lumbar disc l5-s1 cholecystectomy
--- OUTSIDE RECORDS SUMMARY | 2024-11-20 12:43 | XMS_ITS | Clinical Summary ---
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
--- OUTSIDE RECORDS SUMMARY | 2024-11-20 12:44 | XMS_ITS | Patient Health Record ---
Author Organization [employer] Address [address] [place] [address] Care Team Providers Care Weekend Anchor Name Role Phone Milana Blankenship Primary Care Provider AFTAB Contreras Unavailable [phone] Salvador Arceo Unavailable Unavailable Allergies Allergen (clinical drug ingredient) Drug/Non Drug Allergy documented on EMR Reaction Allergy Type Onset Date Status ciprofloxacin Cipro Unknown Drug Allergy Act eli Iodinated contrast media (substance) Iodinated Diagnostic Agents Unknown Drug Allergy Active Reason For Referral No Information Medications Medication SIG (Take, Route, Frequency, Duration) Notes Start Date End Date Status Fish Oil 1000 MG 1 capsule Orally three times a day Not-Taking Meclizine HCl 25 MG 1 tablet as needed Orally Once a day Not-Taking Montelukast Sodium 10 MG 1 tablet Orally Once a day; Duration: 90 days 07/05/2020 Not-Taking Montelukast Sodium 10 MG 1 tablet Orally Once a night; Duration: 90 days Not-Taking Vitamin C 1000 MG 6 tablets Orally Once a day Active Chlorthalidone 25 MG 1 tablet in the morning with food Orally Once a day; Duration: 30 day(s) 07/27/2020 Not-Taking amLODIPine Besylate 10 MG 1 tablet Orally Once a day; Duration: 30 day(s) Not-Taking Turmeric 1053 MG as directed Orally *Pick strength-form from [employer] for eRX* Active Meclizine HCl 12.5 MG 2 tablets as needed Orally every 8 hours PRN; Duration: 30 day(s) 02/21/2020 Not-Taking Lisinopril 10 MG 1 tablet Orally Once a day Active Aspirin 325 MG 1 tablet Orally Once a day Not-Taking Tamsulosin HCl 0.4 MG 1 capsule Orally Once a day Not-Taking Tamsulosin HCl 0.4 MG 1 capsule Orally Once a day; Duration: 90 days 07/20/2020 Active cloNIDine 0.1 MG/24HR 1 patch to skin Transdermal Not-Taking Augmentin 500-125 MG 1 tablet Orally every 8 hrs; Duration: 7 day(s) 07/25/2020 Not-Taking EPINEPHrine 0.3 MG/0.3ML as directed Injection once; Duration: 30 days 06/15/2020 Not-Taking Vitamin D3 125 MCG (5000 UT) as directed Orally Active Zinc 50 MG 1 capsule Orally Once a day *Pick strength-form from [employer] for eRX* Active Cetirizine HCl 10 MG 1 tablet Orally Twice a day; Duration: 30 day(s) 04/18/2020 Not-Taking Immunizations Vaccine Route Administration Date Status Comme nts Flucelvax Quadrivalent Unknown 02/28/2022 Refused Im munization Given by from source eCW:: Flucelvax Quadrivalent Unknown 06/06/2022 Refused Im munization Given by from source eCW:: Influenza, seasonal, injectable, preservative free, 3 yrs and above Unknown 02/02/2020 Administered Immunization Giv en by from source eCW:: Influenza, seasonal, injectable, preservative free, 3 yrs and above Unknown 07/05/2020 Refused Immunization Giv en by from source eCW:: Pneumovax 23 Unknown 11/24/2020 Refused Immunization Given by from source eCW:: Problems Problem Type SNOMED Code ICD Code Onset Dates Problem Status W/U Status Risk Notes Problem Frequency of micturition (950938771) Frequency of micturition (R35.0) Active confirmed Problem Lower urinary tract symptoms due to benign prostatic hypertrophy (05457170231997) Benign prostatic hyperplasia with lower urinary tract symptoms (N40.1) Active confirmed Problem Recurrent sinusitis (975736491) Recurrent sinusitis (J32.9) Active confirmed Problem Angioedema (87791719) Angioedema, initial encounter (T78.3XXA) Active confirmed Problem Hypertension (08105853) Hypertension (I10) Active confirmed Problem Sleep apnea (60711685) Sleep apnea (G47.30) Active confirmed Problem Allergic rhinitis (61112348) Chronic allergic rhinitis (J30.9) Active confirmed Problem Elevated PSA (204747357) Elevated PSA (R97.20) Active confirmed Problem Continuous positive airway pressure ventilation treatment (33439925) CPAP (continuous positive airway pressure) dependence (Z99.89) Active confirmed Problem Syncope and collapse (405273631) Pre-syncope (R55) Active confirmed Problem Obstructive sleep apnea syndrome (54400263) CELIO (obstructive sleep apnea) (G47.33) Active confirmed Encounters Encounter Location Date Provider Diagnosis [facility] [address] [place] [address] 09/01/2024 AFTAB HI Plan Of Treatment Pending Test Test Name Order Date PSA Diagnostic--14052 02/14/2020 Complement CH50 14431 06/26/2020 Echo Complete [id number] 02/14/2020 US Carotid Doppler Bilateral-12313 02/13 Holter x 48 Hour-42649 02/14/2020 Holter x 48 Hour-48536 02/21/2020 Holter x 24 Hour-41709 03/23/2020 Sleep study > 3 Par-04497 03/14/2020 Sleep study > 3 Par-22288 03/07/2020 Future Test Test Name Order Date Cholesterol Total 54933 06/06/2020 CBC w\ Auto Diff 44030 06/06/2020 Comprehensive Metabolic Panel 69450 05/22 PSA Diagnostic--57019 06/06/2020 CBC w\ Auto Diff 33328 12/07/2020 Comprehensive Metabolic Panel 44727 11/19 Hemoglobin A1c 46443 12/07/2020 Thyroid Stimulating Hormone (TSH) 54826 12/07/2020 CBC w\ Auto Diff 55165 02/24/2021 Comprehensive Metabolic Panel 77379 110 09/2020 Hemoglobin A1c 12532 02/24/2021 Lipid Panel Reflex DLDL 27044, 29523 09/2020 PSA Diagnostic--94885 02/24/2021 Insurance Providers Payer Name Payer Address Payer Phone Subscriber Number Group Number Insured Name Patient Relationship to Insured Coverage Start Date Coverage End Date [place] Medicare [address] DEON ROMANO [id number] [phone] [id number] Randall Zavala Self - patient is the insured [facility] [address] [place] [id number] Randall Zavala Self - patient is the insured Medical (General) History Medical History History ICD Code arthritis anemia back trouble hypertension bronchitis sleep apnea with CPAP at [facility] gout elevated PSA BPH with LUTS Surgical History Surgery Date(Month/Year) tonsils l4-l5 disk surgery l5-s1 disk surgery gallbladder removal Hospitalization History Reason Date(Month/Year) ER visit swelling in feet, then passing, chest pressure 09/03/20 ER visit severe headache, BP 220/115, ta chycardia 07/23/20 ER visit for allergic reaction 06/27/20 dizziness hyprostatic collapse
--- OUTSIDE RECORDS SUMMARY | 2024-11-20 12:44 | XMS_ITS | Patient Health Record ---
Author Organization [facility] Address [address] [place] [address] Care Team Providers Care Hospitalist Medical Director Name Role Phone Milana Sauceda Primary Care Provider Unavaila Eder Vasquez Unavailable [phone] MILO MORENO Unavailable Unavailable Allergies Allergen (clinical [...] End Date Status Montelukast Sodium 10 MG Tablet 1 tablet Orally Once a night; Duration: 90 days Not-Taking Vitamin D3 125 MCG (5000 UT) Capsule as directed Orally Active Aspirin 325 MG Tablet 1 tablet Orally On ce a day Not-Taking Montelukast Sodium 10 MG Tablet 1 tablet Orally Once a day; Duration: 90 days 07/05/2020 Not-Takin g Zinc 50 MG Capsule 1 capsule Orally Onc e a day Active cloNIDine 0.1 MG/24HR Patch Weekly 1 patch to skin Transdermal Not-Taking Turmeric 1053 MG Tablet as directed Orally Active Tamsulosin HCl 0.4 MG Capsule 1 capsule Orally Once a day Not-Taking Tamsulosin HCl 0.4 MG Capsule 1 capsule Orally Once a day; Duration: 90 days 07/20/2020 Active Meclizine HCl 25 MG Tablet Chewable 1 tablet as needed Orally Once a day Not-Taking Cetirizine HCl 10 MG Tablet 1 tablet Orally Twice a day; Duration: 30 day(s) 04/18/2020 Not-Taking Augmentin 500-125 MG Tablet 1 tablet Orally every 8 hrs; Duration: 7 day(s) 07/25/2020 Not-Taking Lisinopril 10 MG Tablet 1 tablet Orally Once a day Active Fish Oil 1000 MG Capsule 1 capsule Orall y three times a day Not-Taking Vitamin C 1000 MG Tablet 6 tablets Orall y Once a day Active EPINEPHrine 0.3 MG/0.3ML Solution Auto-injector as directed Injection once; Duration: 30 days 06/15/2020 Not-Taking Meclizine HCl 12.5 MG Tablet 2 tablets as needed Orally every 8 hours PRN; Duration: 30 day(s) 02/21/2020 Not-Taking amLODIPine Besylate 10 MG Tablet 1 tablet Orally Once a day; Duration: 30 day(s) Not-Taking Chlorthalidone 25 MG Tablet 1 tablet in the morning with food Orally Once a day; Duration: 30 day(s) 07/27/2020 Not-Taking Immunizations Vaccine Route [...] stop date) Never Smoker NA - NA Social History Depression Screening Social Info Question Answer Notes PHQ-9 Little interest or pleasure in doing thin gs Not at all Feeling down, depressed, or [...] way Not at all Total Score 0 Drugs/Alcohol: Social Info Question Answer Notes Alcohol Screen (Audit-C) Did you have a drink containing alcohol in the past year? No Points 0 Interpretation Negative Drugs Have you used drugs other than those for medical reasons in the past 12 months? No Comprehensive Health Assessm ent Social Info Question Answer Notes Social Functioning Do you suffer from social anxiety? No Family/ social/ cultural characteristics Are you currently employed? Yes Tobacco Use: Social Info Question Answer Notes xTobacco Use/Smoking Are you a nonsmoker Additional Details Category Social Info Options Details Migrated Social History Migrated Social History Smoking Status : Never used tobacco , History of tobacco use : Problems Problem Type SNOMED Code ICD Code Onset Dates Problem Status W/U Status Risk Notes Problem Frequency of micturition (057637920) Frequency of micturition (R35.0) Active confirmed Problem Lower urinary tract symptoms due to benign prostatic hypertrophy (11805667855981) Benign prostatic hyperplasia with lower urinary tract symptoms (N40.1) Active confirmed Problem Elevated PSA (081784636) Elevated PSA (R97.20) Active confirmed Problem Obstructive sleep apnea syndrome (78728608) CELIO (obstructive sleep apnea) (G47.33) Active confirmed Problem Continuous positive airway pressure ventilation treatment (68745947) CPAP (continuous positive airway pressure) dependence (Z99.89) Active confirmed Problem Sleep apnea (10291239) Sleep apnea (G47.30) Active confirmed Problem Allergic rhinitis (15397210) Chronic allergic rhinitis (J30.9) Active confirmed Problem Angioedema (31996538) Angioedema, initial encounter (T78.3XXA) Active confirmed Problem Recurrent sinusitis (683584851) Recurrent sinusitis (J32.9) Active confirmed Problem Hypertension (12824804) Hypertension (I10) Active confirmed Problem Syncope and collapse (818496666) Pre-syncope (R55) Active confirmed Plan Of Treatment Pending Test Test Name Order Date Complement [id number] 06/26/2020 Echo Complete [id number] 02/14/2020 US Carotid Doppler Bilateral-[id number] 02/13 Holter x 48 Hour-04704 02/14/2020 Holter x 48 Hour-00103 02/21/2020 Holter x 24 Hour-32772 03/23/2020 Sleep study > 3 Par-[id number] 03/07/2020 Sleep study > 3 [id number] 03/14/2020 Insurance Providers Payer Name Payer Address Payer Phone Subscriber Number Group Number Insured Name Patient Relationship to Insured Coverage Start Date Coverage End Date [place] [address] [place] [phone] [id number] Randall Zavala Self - patient is the insured [place] [address] [place] [phone] [id number] Randall Zavala Self - patient is the insured Medical (General) History Medical History History ICD Code arthritis anemia back trouble hypertension bronchitis sleep apnea with CPAP at [facility] gout elevated PSA BPH with LUTS Surgical History Surgery Date(Month/Year) tonsils l4-l5 disk surgery l5-s1 disk surgery gallbladder removal Hospitalization History Reason Date(Month/Year) ER visit swelling in feet, then passing, chest pressure 09/03/20 ER visit severe headache, BP 220/115, ta chycardia 07/23/20 ER visit for allergic reaction 06/27/20 dizziness hyprostatic collapse
--- NOTE | 2024-11-20 13:31 | ED_ITS ---
HPI - Male Genitourinary 2 General: Chief complaint: Urogenital-Male Stated complaint: catheter issue Time Seen by Provider: 11/20/24 12:36 Source: patient Mode of arrival: ambulatory Limitations: no limitations History of Present Illness: Patient is a 74-year-old male who presents the emergency department complaining of lower abdominal fullness onset today. Patient is also complaining of urinary leakage around Swanson catheter, this was following a TURP procedure on Friday when he had the catheter placed. Patient suddenly worsened about 30 minutes before coming in, and he is describing sensation of pressure buildup in the lower abdomen. He has had catheters placed before, states he has never had issues like this. He states that initially the urinary leakage had a pink tent, but this has since cleared up. He is concerned of possible clotting. Currently is taking amoxicillin. No fever, nausea/vomiting, or any other symptoms reported at this time. Vitals within normal limits. MD Complaint: other (Urinary cath that her problem, urinary leakage, abdominal fullness) Onset (ago): minute(s) Duration: constant Location: penis Context: recent surgery and indwelling catheter Associated symptoms: Deny dysuria, nausea or vomiting Related Data Home Medications ?Medication ?Instructions ?Recorded ?Confirmed amitriptyline 25 mg tablet 25 mg PO .qhs 05/26/2410/20 finasteride 5 mg tablet (Proscar) mg PO 11/05/2411/11 tamsulosin 0.4 mg capsule (Flomax) 0.8 mg PO DAILY 11/11/24 amoxicillin 875 mg-potassium tab 11/20/24 clavulanate 125 mg tablet Previous Rx's ?Medication ?Instructions ?Recorded CPAP (Auto-Titrating CPAP) #1 ea 06/27/23 bipap #1 ea 10/07/23 cane #1 ea 10/07/23 lisinopril 10 mg tablet 10 mg PO DAILY #90 tabs 02/20 lift recliner #1 ea 09/07/24 Bone Growth Stimulator #1 ea 10/04/24 levofloxacin 500 mg tablet 500 mg PO DAILY #5 tabs pantoprazole 40 mg tablet,delayed 40 mg PO DAILY #30 t abs 11/05/24 release ondansetron 4 mg disintegrating See Rx Instructions .R oute 11/11/24 tablet .COMPLEX #10 tabs Allergies Allergy/AdvReac Type Severity Reaction Status Date / Time ciprofloxacin (From Cipro) Allergy Intermediate Vomiting Verified 11/20/24 12:45 celecoxib (From Celebrex) Allergy ADR/ALGY-Hy Verified 11/20/24 12:45 potension Iodinated Contrast Media Allergy Vomiting Verified 11/20/24 12:45 meloxicam (From Mobic) Allergy ADR-Hyperte Verified 11/20/24 12:45 nsion Review of Systems 2 General: Reports: 10 or more systems reviewed and unremarkable except in HPI and below Const: Denies: fever(s), chills, change in appetite, change in weight or diaphoresis ENMT: Denies: throat pain or hoarseness Card: Denies: chest pain, palpitations or lightheadedness Resp: Denies: dyspnea, productive cough or wheezing GI: Reports: abdominal pain (Fullness); Denies: nausea, vomiting, diarrhea, constipation, bloating, change in stool character or hematochezia : Reports: other (Catheter issue, urinary leakage); Denies: flank pain, difficulty urinating, dysuria, urinary frequency or urinary urgency Musc: Denies: neck pain or back pain Skin/Breast: Denies: rash or new lesions Neuro: Denies: headache(s) or dizziness PFSH ED 2 PFSH: Medical History BPH (benign prostatic hyperplasia) Surgical History Status post carpal tunnel release History of tonsillectomy History of rhinoplasty deviated septum History of lumbar surgery x 2; L4/5 & L5/S1 History of cholecystectomy Family History Mother Lung cancer smoker Father CAD (coronary artery disease) Social History Smoking and tobacco/nicotine status: unknown if used tobacco/nicotine Alcohol intake: never Substance/Drug Use: never Lives independently: Yes Household members: spouse Marital status: Marital status details: in 2003 Highest education level completed: Other Doctoral Degree 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[employer]ian: Roman [employer] Agree to transfusion: No Physical Exam 2 Const: COMMON NORMALS: no acute distress, average body habitus, patient oriented x3, no limitations, healthy appearing, alert and well nourished G ENERAL APPEARANCE: cooperative and comfortable NUTRITIONAL APPEARANCE: obese ORIENTATION/CONSCIOUSNESS: Yes awake HENMT: COMMON NORMALS: normocephalic, atraumatic, hearing grossly normal bilaterally, external ears normal, Normal external nose present, Normal nasal mucous membranes and turbinates present and moist oral mucous membranes HEAD & SCALP: normocephalic and atraumatic NOSE: Normal external nose present and Normal nasal mucous membranes and turbinates present EXTERNAL EAR: Yes external ears normal Eye: COMMON NORMALS: Equal, round and reactive pupils present, EOMs intact bilaterally, conjunctivae normal and normal visual ojeda by confrontation C ONJUNCTIVA: Yes conjunctivae normal PUPIL: Yes Equal, round and reactive pupils present Neck/C-Spine: COMMON NORMALS: full ROM, supple, no meningeal signs and no JVD Resp: COMMON NORMALS: normal respiratory effort, No retractions, No use of accessory muscles and clear to auscultation bilaterally AUSCULTATION: clear to auscultation bilaterally, no crackles, no rales, no rhonchi and no wheezes Cardio: COMMON NORMALS: no JVD, regular rate, regular rhythm, S1 normal heart sound present, S2 normal heart sound present, No gallops present (Cardio), No clicks present (Cardio), No murmurs present (Cardio), No rub (Cardio) and Peripheral pulses 2+ throughout RATE: regular rate RHYTHM: regular rhythm HEART SOUNDS: S1 normal heart sound present and S2 normal heart sound present PERIPHERAL PULSES: Peripheral pulses 2+ throughout GI: COMMON NORMALS: Normal to inspection, nondistended, normoactive bowel sounds present, Soft to palpation, No hepatosplenomegaly present and no masses AUSCULTATION: Yes normoactive bowel sounds PALPATION: Yes Soft to palpation, No Guarding due to palpation present (GI), No Rigid due to palpation and Yes No hepatosplenomegaly present RECTAL EXAM: Yes deferred OTHER: Soft abdomen, mild abdominal tenderness to suprapubic region. No fullness of the lower abdomen. : COMMON NORMALS: Yes no CVA tenderness BLADDER/KIDNEY EXAM: Yes no CVA tenderness OTHER: Indwelling Swanson catheter present, draining yellow-colored urine. Evidence of urinary leakage around patient's Swanson catheter Back/Pelvis: COMMON NORMALS: no CVA tenderness Extremity: COMMON NORMALS: normal to inspection and full ROM Neuro: COMMON NORMALS: patient oriented x3, moves all extremities, no focal motor deficits and no sensory deficits noted SENSORIUM/ORIENTATION: Yes alert MENINGEAL SIGNS: Yes no meningeal signs Psych: COMMON NORMALS: mental status grossly normal, cooperative and speech normal SPEECH: Yes normal speech Skin: COMMON NORMALS: no rashes or lesions noted GENERAL SKIN EXAM: no rashes or lesions noted Course 2 Vital Signs: Vital signs: Vital Signs Temperature 97.9 F 11/20/24 12:38 Pulse Rate 92 11/20/24 12:38 Respiratory Rate 18 11/20/24 12:38 Blood Pressure 127/88 11/20/24 12:38 Pulse Oximetry 95 11/20/24 12:38 Oxygen Delivery Me thod Room Air 11/20/24 12:38 MDM - Male Medical Decision Making Patient presented for issues with indwelling Swanson catheter that was placed following TURP procedure last Friday. Urinary leakage was reported as well as suprapubic pressure, though on exam was no distention of the abdomen it was soft and mildly tender. Catheter was flushed after bladder scan revealed only 100 cc of urine, however there was notable sediment/clotting in the catheter and the new 1 was placed demonstrating appropriate flow and relief of patient's symptoms. Leg bag placed. Urine showing red blood cells, likely secondary to urethral irritation there is no gross bright red blood in the bag. He is currently on antibiotics. Kidney function normal, hemoglobin mildly decreased likely secondary to his recent surgery, this is of no significance at this time. He will be discharged as he has follow-up with urology on Friday, general return precautions given. Lab Data 11/20/24 14:09 11/20/24 14:09 Laboratory Results WBC 6.78 10^3/uL (3.29-11.43) 11/20/24 14:09 RBC 3.79 10^6/uL (3.85-5.65) L 11/20/24 14:09 Hgb 11.10 g/dL (11.27-16.99) L 11/20/24 14:09 Hct 34.4 % (37-53) L 11/20/24 14:09 MCV 90.8 fl (82-101) 11/20/24 14:09 MCH 29.3 pg (27-33) 11/20/24 14:09 MCHC 32.3 g/dL (30-55) 11/20/24 14:09 RDW 13.0 % (12.1-15.1) 11/20/24 14:09 Plt Count 173 10^3/cmm (157-399) 11/20/24 14:09 MPV 9.5 fL (7.4-10.4) 11/20/24 14:09 Neut % (Auto) 75.6 % 11/20/24 14:09 Lymph % (Auto) 14.0 % 11/20/24 14:09 [place] % (Auto) 6.8 % 11/20/24 14:09 Eos % (Auto) 2.8 % 11/20/24 14:09 Baso % (Auto) 0.4 % 11/20/24 14:09 Neut # (Auto) 5.12 10^3/uL (1.8-7.7) 11/20/24 14:09 Lymph # (Auto) 1.0 10^3/uL (0.8-4.8) 11/20/24 14:09 [place] # (Auto) 0.5 10^3/uL (0.2-0.9) 11/20/24 14:09 Eos # (Auto) 0.2 10^3/uL (0.0-0.8) 11/20/24 14:09 Baso # (Auto) 0.0 10^3/uL (0.0-0.1) 11/20/24 14:09 Nucleated RBC % (auto) 0 % 11/20/24 14:09 Nucleated RBCs # 0.0 /100WBC 11/20/24 14:09 Sodium 140 mmol/L (136-145) 11/20/24 14:09 Potassium 4.2 mmol/L (3.5-5.1) 11/20/24 14:09 Chloride 105 mmol/L (98-107) 11/20/24 14:09 Carbon Dioxide 24 mmol/L (22-29) 11/20/24 14:09 Anion Gap 15.2 (5-19) 11/20/24 14:09 BUN 18 mg/dL (8-23) 11/20/24 14:09 Creatinine 0.9 mg/dL (0.7-1.2) 11/20/24 14:09 GFR Calculation Not Reportable 11/20/24 14:09 Glucose 103 mg/dL (65-115) 11/20/24 14:09 Calculated Osmolality 292 mOsm/kg (285-295) 11/20/24 14:09 Calcium 8.8 mg/dL (8.5-10.5) 11/20/24 14:09 Total Bilirubin 0.2 mg/dL (0.15-1.2) 11/20/24 14:09 AST 16 U/L (0-40) 11/20/24 14:09 ALT 11 U/L (0-41) 11/20/24 14:09 Alkaline Phosphatase 73 U/L (40-130) 11/20/24 14:09 Total Protein 6.3 g/dL (6.6-8.7) L 11/20/24 14:09 Albumin 3.8 g/dL (3.5-5.2) 11/20/24 14:09 Globulin 2.5 g/dL (1.3-4.6) 11/20/24 14:09 Urine Color Yellow (Yellow) 11/20/24 13:25 Urine Appearance Clear (CLEAR) 11/20/24 13:25 Urine pH 5.5 (5-7) 11/20/24 13:25 Ur Specific [place] 1.009 (1.005-1.030) 11/20/24 13:25 Urine Protein 1+ (Negative) A 11/20/24 13:25 Urine Glucose (UA) Negative (Normal) 11/20/24 13:25 Urine Ketones Negative (Negative) 11/20/24 13:25 Urine Blood 3+ (Negative) A 11/20/24 13:25 Urine Nitrate Negative (Negative) 11/20/24 13:25 Urine Bilirubin Negative (Negative) 11/20/24 13:25 Urine Urobilinogen 0.2 mg/dL (Negative) 11/20/24 13:25 Ur Leukocyte Esterase 1+ (Negative) A 11/20/24 13:25 Urine RBC 51-100 /hpf (0-2) H 11/20/24 13:25 Urine WBC 11-20 /hpf (0-5) H 11/20/24 13:25 Ur Squamous Epith Cells 0-5 /hpf (0-5) 11/20/24 13:25 Amorphous Sediment Not Reportable 11/20/24 13:25 Urine Bacteria None seen /hpf (NONE) 11/20/24 13:25 Hyaline Casts 0.81 /lpf 11/20/24 13:25 No radiology studies performed this visit Discharge Plan Discharge Patient Disposition: Home Clinical Impression: Complication of indwelling urinary catheter Qualifiers: Device complication type: mechanical Mechanical complication type: leakage I ndwelling urinary catheter type: indwelling urethral catheter Encounter type: i nitial encounter Qualified Code(s): T83.031A - Leakage of indwelling urethral catheter, initial encounter Condition: Stable Prescriptions: No Action (DME) lift recliner See Rx Instructions .Route .MEDSUPPLY Qty: 1 0RF Rx Instructions: As directed. Order 99 days tamsulosin [Flomax] 0.4 mg capsule 0.8 mg PO DAILY finasteride [Proscar] 5 mg tablet PO levofloxacin 500 mg tablet 500 mg PO DAILY Qty: 5 0RF pantoprazole 40 mg tablet,delayed release (DR/EC) 40 mg PO DAILY Qty: 30 0RF (DME) bipap See Rx Instructions .Route .MEDSUPPLY Qty: 1 0RF Rx Instructions: Settings at 15/11cm Please provide supples- tubing, facemask (DME) cane See Rx Instructions .Route .MEDSUPPLY Qty: 1 0RF Rx Instructions: As directed lisinopril 10 mg tablet 10 mg PO DAILY Qty: 90 0RF amitriptyline 25 mg tablet 25 mg PO .qhs (DME) Auto-Titrating CPAP Device See Rx Instructions .Route Qty: 1 0RF Rx Instructions: 6-12 mmH2O include supplies (DME) Bone Growth Stimulator See Rx Instructions .Route .MEDSUPPLY Qty: 1 0RF Rx Instructions: As directed ondansetron 4 mg tablet,disintegrating See Rx Instructions .ROUTE .COMPLEX Qty: 10 0RF Dose Instruction: DISSOLVE ONE TABLET ON TONGUE EVERY 8 HOURS NEEDED FOR NAUSEA AND VOMITING Rx Instructions: DISSOLVE ONE TABLET ON TONGUE EVERY 8 HOURS NEEDED FOR NAUSEA AND VOMITING amoxicillin-pot clavulanate 875-125 mg tablet Discharge Orders: Discharge ED (Routine); Ordered 11/20/24 Ordered By: Ramana Ugalde Referrals: Vanna Woodard MD [Primary Care Provider, [facility]] Patient Instructions: Patient Portal & Alicja Instructions Activity Restrictions/Additional Instructions: Swanson Catheter Discharge Instructions Discharge Instructions: Indwelling Swanson Catheter Diagnosis/Reason for Catheter: Indwelling Swanson catheter replaced in the emergency department for malfunction. Symptoms resolved after replacement. No evidence of infection or other acute complications. Urology follow-up scheduled. Catheter Care and Maintenance: - Keep the drainage system closed and sterile. Do not disconnect the catheter from the drainage tubing or leg bag unless instructed by a healthcare professional. This reduces the risk of infection. - Always keep the drainage bag below the level of the bladder (never on the floor) to prevent backflow and reduce infection risk. - Ensure the catheter and tubing are not kinked or twisted to maintain unobstructed urine flow. - Empty the leg bag regularly (at least every 8 hours or when two-thirds full) using a clean container. Avoid touching the drainage spigot to the container. - Secure the catheter to the thigh to prevent movement and urethral traction, which can cause trauma or dislodgement. - Routine hygiene: Clean the area around the catheter (meatus) daily with soap and water. Avoid alcohol-based products, which may dry the mucosa. There is no consensus on antiseptic solutions for daily care, but routine hygiene is recommended. Signs and Symptoms to Monitor: - Fever, chills, or rigors - Cloudy, foul-smelling, or bloody urine - Pain or burning in the lower abdomen, pelvis, or back - Catheter not draining urine, leaking, or becoming dislodged - Redness, swelling, or discharge at the urethral opening - New or worsening confusion or lethargy If any of these occur, seek medical attention promptly, as they may indicate infection, obstruction, or other complications. General Return Precautions: - Return to the emergency department or contact your healthcare provider if: - You are unable to pass urine through the catheter - The catheter falls out or is leaking significantly - You develop fever, chills, or signs of infection - You experience severe pain or discomfort Follow-Up: - Urology appointment is scheduled for Friday. Bring all catheter supplies and a list of any symptoms or concerns to this visit. Additional Notes: - Indwelling catheters should be used only as long as clinically indicated. Discuss with urology the ongoing need for the catheter at follow-up. - If the catheter is no longer needed, prompt removal is recommended to reduce infection risk. Patient/Caregiver Education: - Review catheter care steps and return precautions with the patient and/or caregiver before discharge. - Provide written instructions and contact information for questions or concerns. 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
[2024-11-20 13:39] LABS: Glucose Urine UA Negative (Normal); Nitrate Urine Negative (Negative); Specific Gravity, Urine 1.009 (1.005-1.030)
[2024-11-20 13:42] LABS: Add Urine Microscopic? YES
[2024-11-20 14:19] LABS: Hematocrit 34.4 % (37-53); Hemoglobin 11.10 g/dL (11.27-16.99); Mean Corpuscular HGB Conc 32.3 g/dL (30-55); Mean Corpuscular Hemoglobin 29.3 pg (27-33); Mean Corpuscular Volume 90.8 fl (82-101); Nucleated Red Blood Cells % 0 %; Platelet Count 173 10^3/cmm (157-399); Red Blood Count 3.79 10^6/uL (3.85-5.65); White Blood Count 6.78 10^3/uL (3.29-11.43)
[2024-11-20 14:39] LABS: Alanine Aminotransferase 11 U/L (0-41); Albumin Level 3.8 g/dL (3.5-5.2); Alkaline Phosphatase 73 U/L (40-130); Anion Gap 15.2 (5-19); Aspartate Amino Transferase 16 U/L (0-40); Blood Urea Nitrogen 18 mg/dL (8-23); Calcium 8.8 mg/dL (8.5-10.5); Carbon Dioxide 24 mmol/L (22-29); Chloride 105 mmol/L (98-107); Creatinine Clr Calc Pharmacy 93.4257; Globulin 2.5 g/dL (1.3-4.6); Glucose 103 mg/dL (65-115); Osmolality Calculated 292 mOsm/kg (285-295); Potassium 4.2 mmol/L (3.5-5.1); Sodium 140 mmol/L (136-145); Total Protein 6.3 g/dL (6.6-8.7)
[2024-11-20 15:18] VITALS: BP 132/85; PULSE 89; O2SAT 96
== END 2024-11-20 15:27 | disposition home or self-care (01) ==
PROVIDERS: Emergency Provider Physician Assistant; PCP Family Medicine
DX: T83.031A Leakage of indwelling urethral catheter, initial encounter (principal); X58.XXXA Exposure to other specified factors, initial encounter
CPT/HCPCS: 51702; 51798; 80053; 81001; 85025; 87086; 99283

== ENCOUNTER → 2024-12-02 13:49 | Outpatient (BNVA) | payer MEDICARE, BC, SELFPAY | PROVIDERS: PCP Family Medicine; Visit Provider Orthopaedic Surgery | DX: Z98.1 Arthrodesis status (principal) | CPT/HCPCS: 72040; 99024 ==

== ENCOUNTER 2025-01-04 11:44 | Outpatient (RCR) | payer MEDICARE, BC, SELFPAY | END 2025-01-18 23:59 | disposition home or self-care (01) | LOC: SPT 11:44 | PROVIDERS: PCP Family Medicine; Visit Provider Orthopaedic Surgery | DX: Z98.1 Arthrodesis status (principal) | CPT/HCPCS: 97110; 97161 ==

== ENCOUNTER → 2025-01-10 11:16 | Outpatient (BNVA) | payer MEDICARE, BC, SELFPAY | PROVIDERS: PCP Family Medicine; Visit Provider Family Medicine | DX: K90.49 Malabsorption due to intolerance, not elsewhere classified (principal) | CPT/HCPCS: 86003; 86008 ==

== ENCOUNTER 2025-01-19 05:00 | Outpatient (RCR) | payer MEDICARE, BC, SELFPAY | END 2025-02-18 23:59 | disposition home or self-care (01) | LOC: SPT 05:00 | PROVIDERS: PCP Family Medicine; Visit Provider Orthopaedic Surgery | DX: Z98.1 Arthrodesis status (principal) | CPT/HCPCS: 97110 ==

== ENCOUNTER → 2025-02-08 13:32 | Outpatient (BNVA) | payer MEDICARE, BC, SELFPAY | PROVIDERS: PCP Family Medicine; Referring Provider Orthopaedic Surgery; Visit Provider Specialist | DX: M62.81 Muscle weakness (generalized) (principal) | CPT/HCPCS: 95911 ==

== ENCOUNTER → 2025-02-15 13:42 | Outpatient (BNVA) | payer MEDICARE, BC, SELFPAY | PROVIDERS: PCP Family Medicine; Visit Provider Orthopaedic Surgery | DX: G56.03 Carpal tunnel syndrome, bilateral upper limbs (principal); M25.511 Pain in right shoulder; Z98.1 Arthrodesis status | CPT/HCPCS: 99213 ==

== ENCOUNTER → 2025-03-02 09:23 | Outpatient (BNVA) | payer MEDICARE, BC, SELFPAY | PROVIDERS: PCP Family Medicine; Visit Provider Student in an Organized Health Care Education/Training Program | DX: G56.03 Carpal tunnel syndrome, bilateral upper limbs (principal); M75.41 Impingement syndrome of right shoulder; M19.011 Primary osteoarthritis, right shoulder; M25.511 Pain in right shoulder; M25.811 Other specified joint disorders, right shoulder; M75.101 Unspecified rotator cuff tear or rupture of right shoulder, not specified as traumatic; Z01.89 Encounter for other specified special examinations | CPT/HCPCS: 73030; 73130; 99214 ==

== ENCOUNTER 2025-03-15 14:59 | Outpatient (CLI) | payer MEDICARE, BC, SELFPAY ==
--- NOTE | 2025-03-15 15:15 | MRR_ITS ---
PROCEDURE INFORMATION: Exam: MR Right Upper Extremity Joint Without Contrast; Shoulder Exam date and time: 03/15/2025 3:34 PM Age: 74 years old Clinical indication: Right; RT shoulder pain chronic x several years , re injured worse approx 2 weeks ago in physical therapy for neck; Additional info: Right shoulder pain/rotator cuff tear TECHNIQUE: Imaging protocol: Magnetic resonance imaging of the right upper extremity without contrast. Exam focused on the shoulder. COMPARISON: CR XR shoulder RT min 2V* [id number] 03/02/2025 10:33 AM FINDINGS: Bones/joints: There is advanced glenohumeral osteoarthritis. Modified [place] Classification Grade 4 chondromalacia of the glenohumeral joint: full-thickness cartilage loss with underlying bone reactive changes. Moderate glenohumeral effusion. 4 mm joint body within the subscapular recess. Subcortical degenerative cyst formation of the glenohumeral joint. Subcortical degenerative cyst formation of the greater tuberosity. Glenoid labrum: SLAP tear of the glenoid labrum with near circumferential tearing of the remaining labrum. Supraspinatus tendon: Supraspinatus tendinopathy. Infraspinatus tendon: Infraspinatus tendinopathy. Rim rent tear of the infraspinatus tendon, series 901, image 9. Subscapularis tendon: Unremarkable. No evidence of tear. Teres minor tendon: Unremarkable. No evidence of tear. Tendon of biceps brachii: Long bicipital tendinopathy, intra-articular portion. Coracohumeral ligament: The coracohumeral ligament is unremarkable. Glenohumeral ligaments: Unremarkable. Soft tissues: There is no significant atrophy of the rotator cuff muscles. Lymph nodes: No enlarged lymph nodes. MR/MR shoulder RT wo con* [id number] IMPRESSION: 1. Tendinopathy of the supraspinatus tendon, infraspinatus tendon in the intra-articular portion of the long bicipital tendon. 2. Near circumferential tearing of the glenoid labrum with SLAP tear. 3. Advanced glenohumeral osteoarthritis as described. 4. Rim rent tear of the infraspinatus tendon.
== END 2025-03-15 15:00 | disposition home or self-care (01) ==
LOC: RAD 14:59
PROVIDERS: PCP Family Medicine; Visit Provider Student in an Organized Health Care Education/Training Program
DX: M25.811 Other specified joint disorders, right shoulder (principal); M75.101 Unspecified rotator cuff tear or rupture of right shoulder, not specified as traumatic; M12.811 Other specific arthropathies, not elsewhere classified, right shoulder; Z98.890 Other specified postprocedural states; Z98.1 Arthrodesis status
CPT/HCPCS: 72040; 73221; 99213

== ENCOUNTER → 2025-04-01 11:11 | Outpatient (BNVA) | payer MEDICARE, BC, SELFPAY | PROVIDERS: PCP Family Medicine; Visit Provider Student in an Organized Health Care Education/Training Program | DX: M19.011 Primary osteoarthritis, right shoulder (principal); M75.41 Impingement syndrome of right shoulder; Z71.89 Other specified counseling | CPT/HCPCS: 20610; 77002; J3301; J9999 ==